=== PATIENT | female | born 1970 | race Caucasian/White ===

== ENCOUNTER 2019-10-02 09:09 | Outpatient (CLI) | payer OTHER, SELFPAY ==
[2019-10-02 09:59] LABS: HCT 39.6 % (36.0-46.0); HGB 12.9 g/dL (12.0-15.5); Mean Corp. HGB Concentration 32.6 g/dL (32.0-36.0); Mean Corpuscular Hemoglobin 28.9 pg (27.0-33.0); Mean Corpuscular Volume 88.6 fL (80-95); Mean Platelet Volume 10.3 fL (8.0-11.0); Platelet Count 274 x1000/uL (130-400); RBC 4.47 m/cumm (4.00-5.20); RBC Distribution Width 13.5 % (11.7-14.6); White Blood Cell Count 5.07 k/cumm (4.4-10.8)
[2019-10-02 10:28] LABS: Hemoglobin A1C 5.8 % (3.8-5.6)
[2019-10-02 11:13] LABS: ALT 18 U/L (14-59); AST 17 U/L (15-37); Albumin 3.6 g/dL (3.4-5.0); Alkaline Phosphatase 112 U/L (46-116); Anion Gap 9.7 mmol/L (3-11); BUN 12 mg/dL (7-18); Bilirubin, Total 0.2 mg/dL (0.2-1.0); CO2 27.3 mmol/L (21.0-32.0); CREATININE 0.86 mg/dL (0.55-1.02); Calcium 8.9 mg/dL (8.5-10.1); Calculated LDL 170 mg/dL (<100); Chloride 102 mmol/L (98-107); Cholesterol 252 mg/dL (<200); Glucose 117 mg/dL (74-106); HDL Cholesterol 56 mg/dL (40-60); Potassium 3.9 mmol/L (3.5-5.1); Sodium 139 mmol/L (136-145); Total Protein 6.8 g/dL (6.4-8.2); Triglyceride 132 mg/dL (<150)
== END 2019-10-02 09:29 ==
PROVIDERS: PCP Nurse Practitioner; Visit Provider Nurse Practitioner
DX: E78.00 Pure hypercholesterolemia, unspecified (principal); E11.9 Type 2 diabetes mellitus without complications; R73.09 Other abnormal glucose
CPT/HCPCS: 36415; 80053; 80061; 85027; 83036

== ENCOUNTER 2019-11-13 01:08 | Outpatient (CLI) | payer OTHER, SELFPAY ==
--- NOTE | 2019-11-13 15:00 | DI.MRI_ITS ---
EXAM: MR LUMBAR SPINE WO CLINICAL HISTORY: PRE IR TREATMENT AT [facility], SPINAL STENOSIS AT L4-5 LEVEL, BACK PAIN. TECHNIQUE: Multiplanar multisequence MRI of the Lumbar spine was performed. COMPARISON: No exams were available for comparison FINDINGS: Bones: The last intervertebral disc space is designated the L5/S1 level for the numbering purpose of this examination. The vertebral body heights are well maintained. Alignment is satisfactory. Note i s made of a hemangioma in the S1 vertebral body. Mild degenerative endplate signal changes are seen at L3-4, L4-5 and L5-S1. Cord: The conus tip ends at the L1 level. It is of normal size and signal intensity. T12-L1: No disc herniations or bulges are present. No significant central spinal canal or neural for aminal stenosis is present. L1-2: No disc herniations or bulges are present. No significant central spinal canal or neural fora janae stenosis is present. L2-3: No disc herniations or bulges are present. No significant central spinal canal or neural forami nal stenosis is present. L3-4: There is a mild diffuse disc bulge. There are degenerative changes of the facets. There is m ild narrowing of the central spinal canal. There is mild narrowing of the right neural foramen. The re is no significant left neural foraminal stenosis. L4-5: There is a diffuse disc bulge. There are hypertrophic changes of the facets and ligamentum fl avum. The findings cause moderate central spinal canal stenosis. There is mild bilateral neural for aminal stenosis. L5-S1: There is an asymmetric diffuse disc bulge extending laterally to the left. There are degener ative changes of the facets. No significant central spinal canal stenosis is seen. There is moderat e left neural foraminal stenosis. Minimal narrowing is seen of the right neural foramen. Soft tissues: The visualized SI joints and sacrum are well maintained. The paraspinal soft tissues ar e unremarkable. IMPRESSION: 1. Multilevel degenerative changes in the lumbar spine. 2. Degenerative changes most marked at the L4-5 level where there is moderate central spinal canal st enosis and bilateral neural foraminal stenosis. 3. Degenerative changes seen at L5-S1 causing moderate left neural foraminal stenosis. DATA REPOSITORY:
== END 2019-11-13 01:28 ==
PROVIDERS: PCP Nurse Practitioner; Visit Provider Nurse Practitioner
DX: M48.061 Spinal stenosis, lumbar region without neurogenic claudication (principal); M54.5 Low back pain; M51.27 Other intervertebral disc displacement, lumbosacral region; M47.817 Spondylosis without myelopathy or radiculopathy, lumbosacral region
CPT/HCPCS: 72148

== ENCOUNTER 2020-02-10 08:39 | Outpatient (CLI) | payer OTHER, SELFPAY ==
[2020-02-10 08:50] VITALS: BP 113/72; PULSE 83; RESP 16; TEMP 36.6; O2SAT 98
--- NOTE | 2020-02-10 08:52 | PDOC.PAIN ---
Pain Clinic Procedure Note Procedure Note Procedure Note: INTRA-ARTICULAR SI JOINT INJECTION SARAI HAILE has been referred to the [facility] Management [facility] for intra-articular SI joint injection. 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 She was [place] [facility] [place] by Dr Hopper/Dr Laboy on 01/20/2020. Patient has back pain and right buttock pain. She has had prior injections done in [place], bilateral SI joint injection with some pain relief (2018). Prior LESI which minimal pain relief, followed by lumbar radiofrequency ablation therapy (2019). More recently, she has been experiencing debilitating back pain, right sided, that is interfering with her ability to stand or sit for prolonged period of time. During the clinic visit on 01/20/2020 at [facility] [place], provocative manuever for SI joint was positive and patient may have combination of multiple pain generators from nociceptive sacroiliac joint mediated as well as facetogenic. MRI L spine showed degenerative changes at L4-5 with central canal stenosis and bilateral foraminal stenosis and L5-S1 causing moderate left foraminal stenosis. The decision was made for patient to undergo a trial of SI joint injection. She is scheduled to follow up with [facility] [place]health 2 weeks post injection to monitor residual pain and based on that assessment, plan for future interventional procedures. Patient was interviewed and the medical record reviewed. There were no medical, pharmacologic, radiographic or other structural contraindications to attempting fluoroscopically guided intra-articular SI joint injection. Risks and expected side effects as well as potential benefit of the procedure were reviewed and voiced concerns addressed. The printed consent form was signed and witnessed. Standard time-out procedure was performed. Patient was placed in the prone position on the fluoroscopy table and automated blood pressure cuff and pulse oximeter applied. The skin entry point for approaching right SI joints was identified under the most advantageous fluoroscopic view and marked. Following thorough Chlorhexadine preparation of the skin and draping and 1% lidocaine infiltration of the skin entry point and subcutaneous tissues, a 22 gauge spinal needle was placed under fluoroscopic guidance into right SI joints was identified under the most advantageous fluoroscopic view and marked. Following thorough Chlorhexadine preparation of the skin and draping and 1% lidocaine infiltration of the skin entry point and subcutaneous tissues, a 22 gauge spinal needle was placed under fluoroscopic guidance into right SI joint. Intra-articular placement was confirmed by a clear arthrogram resulting from the injection of 0.5ml Omnipaque 240, 1ml 1% lidocaine, and 40mg Depomedrol were injected intra-articularily with an initial reproduction of a significant component of the usual pain. Vital signs were stable throughout the procedure and were as recorded in the docflowsheet by the nursing staff. Follow up plans and appointments were discussed with the patient. Post procedure instruction was given as documented in nursing documentation and having met discharge criteria, and was discharged from the Pain Management Center. COMMENTS: patient tolerated procedure well. I personally performed this procedure Luis Felipe Jimenez MD Pain Management CC: Desire Julian APRN
--- NOTE | 2020-02-10 09:20 | DI.RAD_ITS ---
EXAM: XR PAIN CLINIC SACRIOILIAC 2V CLINICAL HISTORY: Dx: Sacroiliac Joint dysfunction-Right, SACROLIAC JOINT INJECTION TECHNIQUE: 2D and realtime digital imaging was performed. Fluoroscopy was provided in the OR COMPARISON: No exams were available for comparison FINDINGS: C-arm fluoroscopy was utilized by Dr. Jimenez during reported right SI joint injection. Hard copy shows S I joint injection. Fluoro 20 seconds. RADIATION DOSE DELIVERED: Total DLP
[2020-02-10 09:22] VITALS: BP 132/83; PULSE 88; RESP 16; O2SAT 99
[2020-02-10] MEDS: methylPREDNISolone ACETATE 80 MG/ML VIAL IJ (09:25)
[2020-02-10] MEDS: Omnipaque 240 MG/ML 50 ML BTL IJ (09:25)
== END 2020-02-10 08:59 ==
PROVIDERS: PCP Nurse Practitioner; Visit Provider Internal Medicine
DX: M53.3 Sacrococcygeal disorders, not elsewhere classified (principal)
CPT/HCPCS: 27096; 72200; J1040; Q9967

== ENCOUNTER 2020-02-17 01:35 | Outpatient (CLI) | payer OTHER, SELFPAY ==
--- NOTE | 2020-02-17 11:15 | DI.US_ITS ---
EXAM: US PELVIS TRANSVAGINAL CLINICAL HISTORY: Right ovarian cyst, N83.201. TECHNIQUE: Transabdominal and transvaginal pelvic ultrasound was performed using standard protocol. COMPARISON: No exams were available for comparison. If they become available, an addendum will be i ssued at that time. FINDINGS: KIDNEYS: Kidneys are symmetric in size. No evidence of renal calculi. No evidence of hydronephrosis. No renal mass or cyst identified. UTERUS: Position: Anteverted. Size: 6.0 long by 3.2 AP by 4.6 transverse cm Endometrium: 0.6 cm. Normal for patient's menstrual status. Myometrium: Unremarkable. Cervix: Unremarkable. OVARIES: Right: 4.7 x 2.8 x 2.8 cm Cyst or mass: 2.0 x 2.1 x 1.7 cm simple avascular cyst. There is a 2.8 x 2.7 x 2.7 cm cystic lesion with internal debris. It is avascular. Left: 4.4 x 2.9 x 3.7 cm Cyst or mass: There are 2 complex avascular lesions on the left ovary. The larger measures 2.5 x 2.4 x 3.4 cm. The smaller measures 2.2 x 1.3 x 2.4 cm. There do appear to be a few echogenic foci asso ciated with the cysts which may be calcifications. DOPPLER: Color: Symmetric and uniform flow to both ovaries. No hyperemia. Duplex: Normal ovarian arterial waveforms visualized. CUL-DE-SAC: Free fluid: None. Other: None. IMPRESSION: 1. Normal sonographic appearance of the kidneys. 2. Normal-appearing uterus with endometrial stripe within normal limits. 3. Complex bilateral ovarian lesions. The largest is on the left ovary and measures 3.4 cm in maximu m diameter. Differential considerations include but are not limited to hemorrhagic cysts or endometr iomas. DATA REPOSITORY:
== END 2020-02-17 01:55 ==
PROVIDERS: PCP Nurse Practitioner; Visit Provider Nurse Practitioner
DX: N83.291 Other ovarian cyst, right side (principal); N83.292 Other ovarian cyst, left side
CPT/HCPCS: 76830; 76856

== ENCOUNTER 2020-02-24 01:05 | Outpatient (CLI) | payer OTHER, SELFPAY ==
--- NOTE | 2020-02-24 12:30 | DI.MAMMO_ITS ---
EXAM: MG MAMMO SCREENING CLINICAL HISTORY: screening, Z12.39 TECHNIQUE: Bilateral full field digital CC and MLO mammographic images were obtained with 3D tomosyn thesis and utilizing computer aided detection (CAD). COMPARISON: None. FINDINGS: Masses/Architectural Distortion: None seen. Microcalcifications: No suspicious pleomorphic-type are seen. Skin Thickening/Nipple Retraction: None. IMPRESSION: 1. No significant interval change with no specific features of malignancy noted. 2. Unless there is more urgent need, screening mammography is recommended, as per [place] [employer] guidelines. BI-RADS Category 1 - Negative Breast Density - Category B - Scattered areas of fibroglandular density A negative radiographic report should not delay biopsy if a dominant or clinically suspicious mass is present. Up to ten percent of cancers are not identified on mammography. A negative report may reinforce clinical impression. Adenosis and dense breasts may obscure an underlying neoplasm. False positive reports average 6 to 10%. Patient will receive a letter notifying them of these results.
== END 2020-02-24 01:25 ==
PROVIDERS: PCP Nurse Practitioner; Visit Provider Nurse Practitioner
DX: Z12.31 Encounter for screening mammogram for malignant neoplasm of breast (principal)
CPT/HCPCS: 77063; 77067

== ENCOUNTER 2020-03-09 14:10 | Outpatient (REF) | payer OTHER, SELFPAY ==
--- NOTE | 2020-03-09 13:30 | PAPFT_PTH ---
PATIENT: Bianka Leonardo LOC: [facility] U#:[id number] AGE/SX: 49/F ROOM: RE03/09/[address]: Sirena Joshi NP : 1970 BED: DIS: 03/09/2020 SPEC #: [id number] RECD: 03/09/20 17:01 STATUS: CODY HAWK #: [id number] SHARI: 03/09/20 13:[address]: Sirena Joshi NP DEPT: [facility] Cytology RECD BY: Mikal Dominguez ENTERED: 03/09/20 17:03 SP TYPE: PAPFT OTHR DR: Desire Julian APRN Tissues: 1 - CX/ENDOCX FOR PAP SMEARS Procedures: PAP THIN PREP/UVM Screening Comments: [id number] (UNSATISFACTORY FOR EVALUATION)
== END 2020-03-09 14:30 ==
LOC: LBN 14:10
PROVIDERS: PCP Nurse Practitioner; Visit Provider Nurse Practitioner Women's Health
DX: Z12.4 Encounter for screening for malignant neoplasm of cervix (principal); Z87.410 Personal history of cervical dysplasia; R87.615 Unsatisfactory cytologic smear of cervix
CPT/HCPCS: 88142

== ENCOUNTER 2020-06-04 08:35 | Outpatient (CLI) | payer OTHER, SELFPAY ==
[2020-06-05 15:10] LABS: COVID-19 RT-PCR Result NEGATIVE (Negative)
== END 2020-06-04 08:55 ==
PROVIDERS: PCP Nurse Practitioner; Visit Provider Surgery
DX: Z11.59 Encounter for screening for other viral diseases (principal); Z01.818 Encounter for other preprocedural examination
CPT/HCPCS: U0003

== ENCOUNTER 2020-06-07 06:18 | Day surgery (SDC) | payer OTHER, SELFPAY ==
[2020-06-07 06:31] VITALS: BP 137/86; PULSE 80; RESP 18; TEMP 36.2; O2SAT 99
--- NOTE | 2020-06-07 06:36 | ENDO_ITS ---
Date of service: 06/07/20 Time of Service: 08:01 Endoscopy Report DATE OF PROCEDURE: 06/07/20 PRE-OP DIAGNOSIS: Colon Cancer Screening and GERD POST-OP DIAGNOSIS: other (gastric ulcers, mild esophagitis, right sided mild diverticulosis) PROCEDURE: 1. EGD with biopsies 2. Colonoscopy SURGEON: Neelam Berger ANESTHESIA: other (General/ ASA 2/Whitley Nettie, CELL BIOLOGY SCIENTIST) ESTIMATED BLOOD LOSS: 3 PATHOLOGY: other (Antrum bx, gastric ulcer bx, GE junction bx) COMPLICATIONS: None DISPOSITION: same day INDICATIONS: The patient is here for Colonoscopy pre-op.She has no family history of colon cancer. She has noted some changes in her bowel habits to include more frequent constipation. -Discussed colonoscopy bowel prep as well as the procedure. Discussed possible complications of the procedure to include bleeding, pain, perforation, missed small lesion/polyp, sore throat, aspiration and adverse reaction to the medications. Questions were answered to patient?s satisfaction. No guarantees were implied or given. She will refrain from using ibuprofen for 5 days prior to her procedure. Ordered Zofran to be used if she has any symptoms of nausea or vomiting associated with the bowel prep. P// Colonoscopy under sedation. (2) Esophageal reflux: Persistent GERD symptoms despite use of pantoprazole daily. She has eliminated alcohol and chocolate and has significantly reduced her caffeine intake. -Discussed Upper endoscopy procedure and the need to be NPO after midnight the night prior. Discussed possible complications of the procedure to include bleeding, pain, perforation, missed small lesion/polyp/ulcers, sore throat, aspiration and adverse reaction to the medications or sedation. Questions were answered to patient?s satisfaction. No guarantees were implied or given. PREP: Miralax/Dulcolax PROCEDURE START TIME: 07:20 PROCEDURE END TIME: 07:57 COLONOSCOPY RETRACTION TIME: 17 FINDINGS: EGD- Gastric ulcers, mild gastritis, mild esophagitis Edwards- mild right sided diverticulosis PROCEDURE DESCRIPTION: After informed consent was obtained the patient was take to the procedure room and placed in a supine position. Monitors were applied and a time out was done. The patients name, date of , procedure type, allergies to medications and metal in their body was reviewed. A bite block was placed and the patient was sedated. Once sedated and comfortable the gastroscope was advanced through the oropharynx which was grossly normal into the esophagus. The proximal and mid- esophagus were normal. In the distal esophagus there was mild inflammation noted. The scope was advanced into the stomach and through the pylorus into the 3rd portion of the duodenum. The duodenum was noted to be normal. The scope was retracted back into the stomach and biopsies were done to rule out H. pylori. There were multiple shallow ulcers around the pylorus and in the antrum. The scope was retro-flexed. The cardia and fundus were noted to be normal. There was no hiatal hernia noted. The scope was retracted back into the esophagus and biopsies were done of the GE junction to rule out Cosme's. The Z line was regular. The GE junction was at 35 cm. While the patient was still sedated they were placed in a left decubitous position. A rectal exam was done. External exam was normal. Internal exam revealed a relaxed sphincter tone and no palpable masses. The scope was then introduced and retro-flexed. No internal hemorrhoids were identified. The scope was then advanced to the cecum without difficulty. The ileocecal valve and appendiceal orifice were identified. The prep was good. The scope was then slowly retracted over 17 minutes back into the rectum. There were no polyps. Mild right sided diverticulosis was noted. The scope was removed and the patient was woken up and taken back to Same day surgery in stable condition. The patient tolerated the procedure well and there were no immediate complications. Follow up: 10 years for her next colonoscopy Increase pantoprazole to 40 mg BID for 30 days
--- NOTE | 2020-06-07 06:38 | W.PM.DSUDISC ---
Discharge Plan Disposition Patient Disposition: HOME Condition: Good Discharge Details Reason For Visit: Colonoscopy and EGD Attending Provider: Neelam Berger Primary Care Provider: Desire Julian Home Meds and New Rx's Prescriptions: New pantoprazole 40 mg tablet,delayed release (DR/EC) 40 mg PO BID Qty: 60 RF: 0 celecoxib [Celebrex] 200 mg capsule 200 mg PO DAILY Qty: 30 RF: 0 Continued magnesium oxide 500 mg capsule 500 mg PO DAILY RF: 0 mwxhm-8i-oqo-epa-fish oil 300-1,000 mg capsule 4 cap PO DAILY RF: 0 niacin 1,000 mg tablet extended release 1,000 mg PO BID RF: 0 diclofenac sodium [Voltaren] 1 % gel 2 gm TP QID RF: 0 metronidazole [Metrogel Vaginal] 0.75 % gel 1 appful VG DAILY PRNRF: 0 fluconazole [Diflucan] 100 mg tablet 100 mg PO DAILY PRNRF: 0 cyclobenzaprine 10 mg tablet 10 mg PO TID PRN (Reason: back pain) Qty: 90 RF: 3 zolpidem [Ambien CR] 12.5 mg tablet,ext release multiphase 12.5 mg PO QHS PRN (Reason: insomnia) Qty: 90 RF: 3 yrtlaksona-kzutpiohzpqcd-eoxf [Fioricet] 50-300-40 mg capsule 2 cap PO Q4H PRN (Reason: headache) Qty: 30 RF: 6 ondansetron 4 mg tablet,disintegrating 4 mg PO Q8H PRN (Reason: nausea and vomiting) Qty: 10 RF: 0 fexofenadine 180 mg tablet 180 mg PO DAILY RF: 0 fluticasone propionate [Flonase Allergy Relief] 50 mcg/actuation spray,suspension See Rx Instructions AMELIA DAILY RF: 0 venlafaxine [Effexor XR] 150 mg capsule,extended release 24hr 150 mg PO DAILY RF: 0 propranolol 40 mg tablet 20 mg PO BID Qty: 90 RF: 3 sucralfate [Carafate] 1 gram tablet See Rx Instructions PO BID PRN (Reason: GI/gastritis) Qty: 120 RF: 1 Discontinued pantoprazole 40 mg tablet,delayed release (DR/EC) 40 mg PO DAILY Qty: 90 RF: 1 Discharge Instructions Additional Instructions: Findings: Gastric ulcers. mild esophagitis mild right sided diverticulosis Follow up: 10 years for next colo Medications: increase Pantoprazole 40 mg to BID Please call if you develop: fevers >101.5 Nausea or Vomiting Abdominal pain that is not transient DAY SURGERY UNIT POST ENDOSCOPY INSTRUCTIONS 1. Because there will be medication in your system for the next 24 hours, you may feel a little sleepy. Your coordination will be affected. Therefore: a. Do not drive or operate dangerous equipment for 24 hours. b. Do not drink alcohol beverages for 24 hours (not even beer). c. Plan to go home and rest for the day. 2. Generally there are no restrictions on your activity after a day or so has gone by, but you may feel a bit fatigued for a few days. 3 After you arrive home you may have a light meal and return to a normal diet as you can tolerate it without feeling sick to your stomach. 4. After surgery, you may feel pain or discomfort. This should be only transient, but if it persists please contact your doctor. 5. If there are any questions regarding the findings of your procedure, please feel free to contact your doctor. 6. If you are unable to contact your doctor with a problem, contact the hospital at [phone]. 7. Continue all your regular medications unless directed otherwise. I understand the above instructions and have no questions. Signature of Patient or Responsible Adult Escort Date/Time Name of Responsible Adult Escort Signature of Nurse Date/Time Activity:: Activity as Tolerated Diet:: As Tolerated Discharge Orders Discharge Orders: Discharge Order (Routine); Ordered 06/07/20 Ordered By: Neelam Berger
[2020-06-07] MEDS: Lactated Ringers 1,000 ML 80 ML IV (06:48)
--- NOTE | 2020-06-07 07:24 | STOM_PTH ---
PATIENT: Bianka Leonardo LOC: [facility] U#:[id number] AGE/SX: 50/F ROOM: RE06/07/[address]: Neelam Berger MD : 1970 BED: DIS: 06/07/2020 SPEC #: [id number] RECD: 06/07/20 12:37 STATUS: CODY REQ #: [id number] SHARI: 06/07/20 07:[address]: Neelam Berger DEPT: Surgical Specimen RECD BY: Echo Gordon ENTERED: 06/07/20 12:39 SP TYPE: STOMACH OTHR DR: Desire Julian APRN Tissues: 1 - STOMACH BIOPSY 2 - STOMACH BIOPSY 3 - ESOPHAGUS BIOPSY Procedures: GROSS AND MICRO LEVEL 4 IMMUNOPEROXIDASE STAIN Comments: [id number]
[2020-06-07 08:35] VITALS: BP 118/82; PULSE 74; RESP 16; TEMP 36; O2SAT 100
== END 2020-06-07 08:50 | disposition home or self-care (01) ==
PROVIDERS: PCP Nurse Practitioner; Visit Provider Surgery
PROC: (CPT 43239; principal; 2020-06-07 07:30)
DX: Z12.11 Encounter for screening for malignant neoplasm of colon (principal); K21.9 Gastro-esophageal reflux disease without esophagitis; K57.30 Diverticulosis of large intestine without perforation or abscess without bleeding; K20.90 Esophagitis, unspecified without bleeding; K25.9 Gastric ulcer, unspecified as acute or chronic, without hemorrhage or perforation; K29.70 Gastritis, unspecified, without bleeding
CPT/HCPCS: 43239; 45378; 81025; 88305; 88361; J2001; J2405

== ENCOUNTER 2020-06-22 08:00 | Outpatient (CLI) | payer OTHER, SELFPAY ==
--- NOTE | 2020-06-22 06:00 | DI.RAD_ITS ---
EXAM: XR PAIN CLINIC SACRIOILIAC 2V CLINICAL HISTORY: Dx: Sacroiliac Joint Dysfunction TECHNIQUE: 2D and realtime digital imaging was performed. CONTRAST MATERIAL: Refer to procedure report. COMPARISON: No exams were available for comparison FINDINGS: Fluoroscopy was provided for Dr. Jimenez during the performance of a right sacroiliac joint injection. P lease refer to the procedure report for complete details. Fluoro time: 27.2 seconds IMPRESSION:
[2020-06-22 08:08] VITALS: BP 106/66; PULSE 78; RESP 16; TEMP 37; O2SAT 99
[2020-06-22 08:34] VITALS: BP 123/61; PULSE 84; RESP 16; O2SAT 100
[2020-06-22] MEDS: Omnipaque 240 MG/ML 50 ML BTL IJ (08:41)
[2020-06-22] MEDS: methylPREDNISolone ACETATE 80 MG/ML VIAL IJ (08:41)
--- NOTE | 2020-06-22 11:26 | PDOC.PAIN ---
Pain Clinic Procedure Note Procedure Note Procedure Note: INTRA-ARTICULAR SI JOINT INJECTION Pre-operative diagnosis: sacroiliac joint dysfunction Post-operative diagnosis: same as above SARAI HAILE has been referred to the Pain Management Center for intra-articular SI joint injection. COMMENTS: previous right SI joint injection provided excellent pain relief from January to May 2020. Patient followed up with Dr Hopper and she is okay to follow at [facility] pain clinic for repeat injections as long as it provides significant pain relief and no new pattern of pain. Patient was interviewed and the medical record reviewed. There were no medical, pharmacologic, radiographic or other structural contraindications to attempting fluoroscopically guided intra-articular SI joint injection. Risks and expected side effects as well as potential benefit of the procedure were reviewed and voiced concerns addressed. The printed consent form was signed and witnessed. Standard time-out procedure was performed. Patient was placed in the prone position on the fluoroscopy table and automated blood pressure cuff and pulse oximeter applied. The skin entry point for approaching right SI joints was identified under the most advantageous fluoroscopic view and marked. Following thorough Chlorhexadine preparation of the skin and draping and 1% lidocaine infiltration of the skin entry point and subcutaneous tissues, a 22 gauge spinal needle was placed under fluoroscopic guidance into right SI joints was identified under the most advantageous fluoroscopic view and marked. Following thorough Chlorhexadine preparation of the skin and draping and 1% lidocaine infiltration of the skin entry point and subcutaneous tissues, a 22 gauge spinal needle was placed under fluoroscopic guidance into right SI joint. Intra-articular placement was confirmed by a clear arthrogram resulting from the injection of 0.5ml Omnipaque 240, 1ml 1% lidocaine, and 40mg Depomedrol were injected intra-articularily with an initial reproduction of a significant component of the usual pain. Vital signs were stable throughout the procedure and were as recorded in the docflowsheet by the nursing staff. Follow up plans and appointments were discussed with the patient. Post procedure instruction was given as documented in nursing documentation and having met discharge criteria, and was discharged from the Pain Management Center. COMMENTS: patient tolerated procedure well. I personally performed this procedure Luis Felipe Jimenez MD Pain Management CC: Desire Julian APRN
== END 2020-06-22 08:20 ==
PROVIDERS: PCP Nurse Practitioner; Visit Provider Internal Medicine
DX: M53.3 Sacrococcygeal disorders, not elsewhere classified (principal)
CPT/HCPCS: 27096; 72200; J1040; Q9967

== ENCOUNTER 2020-10-05 11:11 | Outpatient (CLI) | payer OTHER, SELFPAY ==
[2020-10-05 11:16] VITALS: BP 126/76; PULSE 73; RESP 17; TEMP 36.6; O2SAT 99
--- NOTE | 2020-10-05 11:41 | DI.RAD_ITS ---
EXAM: XR PAIN CLINIC SACRIOILIAC 2V CLINICAL HISTORY: Dx: Sacroiliac Joint Dysfunction TECHNIQUE: 2D and realtime digital imaging was performed. COMPARISON: No exams were available for comparison FINDINGS: C-arm fluoroscopy was utilized by Dr. Levy during reported right SI joint injection. Hard copy shows successful injection at the right SI joint. Fluoro time, 21.7 seconds. IMPRESSION: RADIATION DOSE DELIVERED: Total DLP
[2020-10-05] MEDS: methylPREDNISolone ACETATE 80 MG/ML VIAL IJ (11:47)
[2020-10-05] MEDS: Omnipaque 240 MG/ML 50 ML BTL IJ (11:47)
[2020-10-05 11:54] VITALS: BP 133/75; PULSE 88; RESP 16; O2SAT 100
--- NOTE | 2020-10-05 12:34 | PDOC.PAIN_ITS ---
Pain Clinic Procedure Note Procedure Note Procedure Note: Date of service: 10/05/20 INTRA-ARTICULAR SI JOINT INJECTION SARAI HAILE has been referred to the [facility] for intra- articular SI joint injection. COMMENTS: She has had many right sacroiliac joint injections over the years. Her last 2 were on 02/10/20 and 06/22/[address] Jimenez. She gets about 3 months of relief from this procedure. I did discuss radiofrequency ablation to the right sacroiliac joint by ablating the right L4 and L5DR medial branches and the right S1-S3 lateral branches to give her far longer lasting relief and help her to avoid the repeted steroids. She was interested in this idea for the future. DX: Sacroiliac joint dysfunction Patient was interviewed and the medical record reviewed. There were no medical, pharmacologic, radiographic or other structural contraindications to attempting fluoroscopically guided intra-articular SI joint injection. Risks and expected side effects as well as potential benefit of the procedure were reviewed and voiced concerns addressed. The printed consent form was signed and witnessed. Standard time-out procedure was performed. Patient was placed in the prone position on the fluoroscopy table and automated blood pressure cuff and pulse oximeter applied. The skin entry point for approaching [right/left/bilateral] SI joints was identified under the most advantageous fluoroscopic view and marked. Following thorough Chlorhexadine preparation of the skin and draping and 1% lidocaine infiltration of the skin entry point and subcutaneous tissues, a 22 gauge spinal needle was placed under fluoroscopic guidance into right SI joint was identified under the most advantageous fluoroscopic view and marked. Intra-articular placement was confirmed by a clear arthrogram resulting from the injection of 0.25ml Omnipaque 240, 1ml 1% lidocaine, and 40mg Depomedrol were injected intra-articularily with an initial reproduction of a significant component of the usual pain. Vital signs were stable throughout the procedure and were as recorded in the docflowsheet by the nursing staff. If given, dosages of intravenous drugs for anxiolysis and analgesia were documented in MAR. Follow up plans and appointments were discussed with the patient. Post procedure instruction was given as documented in nursing documentation and having met discharge criteria, and was discharged from the [facility]. COMMENTS: Consider radiofrequency ablation to the right Sacroiliac joint vs continued right sacroiliac joint injections every 3-4 months. Carlo Levy DO, MPH Pain Management CC: Desire Julian APRN
== END 2020-10-05 11:12 | disposition home or self-care (01) ==
LOC: PC 11:11
PROVIDERS: PCP Nurse Practitioner; Visit Provider Preventive Medicine Occupational Medicine
DX: M53.3 Sacrococcygeal disorders, not elsewhere classified (principal)
CPT/HCPCS: 27096; 72200; J1040; Q9967

== ENCOUNTER 2020-12-01 13:12 | Outpatient (REF) | payer OTHER, SELFPAY ==
--- NOTE | 2020-12-01 13:00 | PAPFT_PTH ---
PATIENT: Bianka Leonardo LOC: [facility] U#:[id number] AGE/SX: 50/F ROOM: RE12/01/[address]: Sirena Joshi NP : 1970 BED: DIS: 12/01/2020 SPEC #: [id number] RECD: 12/01/20 17:42 STATUS: CODY REEzequiel #: [id number] SHARI: 12/01/20 13:[address]: Sirena Joshi NP DEPT: [facility] Cytology RECD BY: Echo Gordon ENTERED: 12/01/20 17:43 SP TYPE: PAPFT OTHR DR: Desire Julian APRN Tissues: 1 - CX/ENDOCX FOR PAP SMEARS Procedures: PAP THIN PREP/UVM Screening HPV DNA PROBE Comments: [id number]
== END 2020-12-01 13:13 | disposition home or self-care (01) ==
LOC: LBN 13:12
PROVIDERS: PCP Nurse Practitioner; Visit Provider Nurse Practitioner Women's Health
DX: Z12.4 Encounter for screening for malignant neoplasm of cervix (principal); Z11.51 Encounter for screening for human papillomavirus (HPV)
CPT/HCPCS: 88142; 87624

== ENCOUNTER 2020-12-30 02:11 | Outpatient (CLI) | payer OTHER, SELFPAY ==
[2020-12-30 10:47] LABS: HCT 38.6 % (36.0-46.0); HGB 12.8 g/dL (11.2-15.7); MCHC 33.2 % (32.0-36.0); MCV 90.6 fL (80-95); MPV 10.6 fL (8.0-11.0); Platelet Count 233 10^3/uL (130-400); RBC 4.26 10^6/uL (3.93-5.22); RDW 12.5 % (11.7-14.6); RDW-SD 41.7 fL; WBC 3.77 10^3/uL (4.4-10.8)
[2020-12-30 12:07] LABS: ALT 24 U/L (14-59); AST 16 U/L (15-37); Albumin 3.8 g/dL (3.4-5.0); Alkaline Phosphatase 109 U/L (46-116); Anion Gap 6.8 mmol/L (3-11); BUN 16 mg/dL (7-18); Bilirubin, Total 0.2 mg/dL (0.2-1.0); CO2 30.2 mmol/L (21.0-32.0); CREATININE 0.9 mg/dL (0.55-1.02); Calculated LDL 123 mg/dL (<100); Chloride 103 mmol/L (98-107); Cholesterol 205 mg/dL (<200); Glucose 103 mg/dL (74-106); HDL Cholesterol 57 mg/dL (40-60); Potassium 4.4 mmol/L (3.5-5.1); Sodium 140 mmol/L (136-145); Total Protein 6.7 g/dL (6.4-8.2); Triglyceride 125 mg/dL (<150)
[2020-12-30 12:08] LABS: Hemoglobin A1C 5.6 % (<5.7)
== END 2020-12-30 02:12 | disposition home or self-care (01) ==
LOC: LBO 02:12
PROVIDERS: PCP Nurse Practitioner; Visit Provider Nurse Practitioner
DX: E78.5 Hyperlipidemia, unspecified (principal); R73.09 Other abnormal glucose
CPT/HCPCS: 36415; 80053; 80061; 85027; 83036

== ENCOUNTER 2021-02-03 10:03 | Outpatient (CLI) | payer OTHER, SELFPAY ==
--- NOTE | 2021-02-03 06:00 | DI.RAD_ITS ---
Exam(s) XR PAIN CLINIC SACRIOILIAC 2V EXAM: XR PAIN CLINIC SACRIOILIAC 2V CLINICAL HISTORY: Dx: Saroiliac Joint Dysfunction TECHNIQUE: 2D and realtime digital imaging was performed. Radiologist not present. CONTRAST MATERIAL: None. COMPARISON: No exams were available for comparison FINDINGS: Fluoroscopy was provided for pain management therapy performed by jase. Please refer to the procedur e report for complete details. Submitted image(s) reveal placement of radiofrequency ablation needles on right side at the level of the sacrum and lower lumbar spine.. Please refer to procedure report or details. Cumulative dose: Kar=20.3 mGy IMPRESSION: RADIATION DOSE DELIVERED:
[2021-02-03 09:53] VITALS: BP 125/70; PULSE 69; RESP 18; TEMP 36.5; O2SAT 98
[2021-02-03] MEDS: methylPREDNISolone ACETATE 80 MG/ML VIAL IJ (12:06)
[2021-02-03] MEDS: Lidocaine 2% Pres-Free 5 ML VIAL IJ (12:06)
[2021-02-03] MEDS: Bupivacaine 0.5% Pres-Free 10 ML VIAL IJ (12:06)
[2021-02-03 12:09] VITALS: BP 122/85; PULSE 88; RESP 19; O2SAT 98
--- NOTE | 2021-02-03 12:51 | PDOC.PAIN ---
Pain Clinic Procedure Note Procedure Note Procedure Note: Right Lumbar Radiofrequency with Coolief Machine PROCEDURE NOTE Date of Service: February 03, 2021 Patient: Bianka Leonardo Provider: Carlo Levy DO, MPH Pre Operative Diagnosis: Lumbosacral spondylosis Post Operative Diagnosis: Same PROCEDURE: Radiofrequency Ablation of medial branches - RT L4 L5 and lateral branches S1, S2, and S3 Pre-procedure VAS pain was 6/10. Bianka Leonardo was brought into the fluoroscopy suite and positioned into the prone position on the fluoroscopy table and allowed to adjust to a position of comfort. A grounding pad was placed on the right/ thigh. The lumbar region was widely prepped with a chloraprep solution, allowed to air dry and draped in standard sterile surgical fashion. Local anesthesia was provided by a total of 5 mL of 2% delivered with a 25g needle. A 17g 100mm radiofrequency introducer needle was placed to the planned anatomic targets guided with intermittent fluoroscopy with a perpendicular approach to terminally place at the junction of the superior articular process and the transverse process of the right L4 and the base of the sacral ala on the right for the L5 medial branch nerve. I then placed needles from 12 o'clock to 6 o'clock semicircular around the lateral aspects of the S1, S2, and S3 foramen. The stylets were removed and radiofrequency probes with a 4mm active tip were then inserted. Needle tip position of the probes was verified in the AP, oblique, and lateral views. At each site, the medial branch nerve was stimulated at 2 Hz to a maximum 1-2 volts determined to finalize safe needle and electrode placement. The patient was awake and responsive during this portion of the procedure. Each target was anesthetized with 1-2 mL of 2% Lidocaine for anesthesia for lesioning and then each target was lesioned at 80 degrees Celsius for 2 minutes and 30 seconds. Tissue impedences were noted to be between 250 and 500 Ohms. Electrodes and needles were then removed and bandages placed over the needle placement sites, the patient then returned to the supine position on a stretcher and transported to the recovery room without hemodynamic, neurologic, or allergic reactions. Fluoroscopic images were printed for hard copy recording and digitally archived. Post-procedure pain level was 0/10. Follow up plans and appointments were discussed with the Bianka . Post procedure instruction was given as documented in nursing documentation and having met discharge criteria, Bianka was discharged from the [facility]. COMMENTS: No complications. F/U with our office as needed. I personally performed this entire procedure. Carlo Levy DO, MPH Pain Management Attending Physician
== END 2021-02-03 10:04 | disposition home or self-care (01) ==
LOC: PC 10:03
PROVIDERS: PCP Nurse Practitioner; Visit Provider Preventive Medicine Occupational Medicine
DX: M54.17 Radiculopathy, lumbosacral region (principal)
CPT/HCPCS: 64635; 64636; 72200; J1040

== ENCOUNTER 2021-07-07 07:22 | Outpatient (CLI) | payer OTHER, SELFPAY ==
--- NOTE | 2021-07-07 06:00 | DI.RAD_ITS ---
Exam(s) XR PAIN CLINIC SACRIOILIAC 2V EXAM: XR PAIN CLINIC SACRIOILIAC 2V CLINICAL HISTORY: DX: sacroiliac joint dysfunction TECHNIQUE: 2D and realtime digital imaging was performed. Radiologist not present. CONTRAST MATERIAL: None. COMPARISON: No exams were available for comparison FINDINGS: Fluoroscopy was provided for pain management therapy. Please refer to procedure report or details. Cumulative dose: Ka,r=18.8 mGy IMPRESSION: RADIATION DOSE DELIVERED:
[2021-07-07 07:53] VITALS: BP 126/74; PULSE 84; RESP 18; TEMP 36.7; O2SAT 97
--- NOTE | 2021-07-07 09:40 | PDOC.PAIN_ITS ---
Pain Clinic Procedure Note Procedure Note Procedure Note: Left sacrolateral Radiofrequency with Coolief Machine PROCEDURE NOTE Date of Service: July 07, 2021 Patient: Bianka Leonardo Provider: Carlo Levy DO, MPH Pre Operative Diagnosis: Lumbosacral Spondylosis without Myelopathy Pre-procedure pain VAS = 6/10 Post Operative Diagnosis: Same Post procedure pain; VAS= 0/10 PROCEDURE: Radiofrequency Ablation of medial branches - Bilateral L5 and lateral branches of bilateral S1-S3. Bianka Leonardo was brought into the fluoroscopy suite and positioned into the prone position on the fluoroscopy table and allowed to adjust to a position of comfort. A grounding pad was placed on the [right/left] thigh. The lumbar region was widely prepped with a chloraprep solution, allowed to air dry and draped in standard sterile surgical fashion. Local anesthesia was provided by 5 mL of 2% Lidocaine delivered with a 25g needle. A 17g 100 mm radiofrequency introducer needle was placed to the planned anatomic targets guided with intermittent fluoroscopy with a perpendicular approach to terminally place at the left L5DR at the base of the sacral ala on the left. I then cirlcled the left S1-S3 neuroformen by marching the needles around the neuroforamen. The stylets were removed and radiofrequency probes with a 4mm active tip were then inserted. Needle tip position of the probes was verified in the AP, oblique, and lateral views. At each site, the medial branch nerve was stimulated at 2 Hz to a maximum 1-2 volts determined to finalize safe needle and electrode placement. The patient was awake and responsive during this portion of the procedure. Each target was anesthetized with 1-2 mL of 2% Li docaine for anesthesia for lesioning and then each target was lesioned at 80 degrees Celsius for 2 minutes and 30 seconds. Tissue impedences were noted to be between 250 and 500 Ohms. Electrodes and needles were then removed and bandages placed over the needle placement sites, the patient then returned to the supine position on a stretcher and transported to the recovery room without hemodynamic, neurologic, or allergic reactions. Fluoroscopic images were printed for hard copy recording and digitally archived. POST PROCEDURE EVALUATION: Follow up plans and appointments were discussed with the Bianka . Post procedure instruction was given as documented in nursing documentation and having met discharge criteria, Bianka was discharged from the [facility]. COMMENTS: No apparent complications. Post-procedure pain: VAS= 0/10. F/U with our office as needed. I personally performed this entire procedure. Carlo Levy DO, MPH Attending Physician Pain Management
[2021-07-07 09:41] VITALS: BP 116/62; PULSE 79; RESP 15; O2SAT 96
[2021-07-07] MEDS: Bupivacaine 0.5% Pres-Free 10 ML VIAL IJ (09:43)
[2021-07-07] MEDS: methylPREDNISolone ACETATE 40 MG/ML VIAL IJ (09:44)
[2021-07-07] MEDS: Lidocaine 2% Pres-Free 5 ML VIAL IJ (09:44)
[2021-07-07] MEDS: methylPREDNISolone ACETATE 80 MG/ML VIAL IJ (09:44)
== END 2021-07-07 07:23 | disposition home or self-care (01) ==
LOC: PC 07:22
PROVIDERS: PCP Nurse Practitioner; Visit Provider Preventive Medicine Occupational Medicine
DX: M47.817 Spondylosis without myelopathy or radiculopathy, lumbosacral region (principal)
CPT/HCPCS: 64635; 64636; 72200; J1030; J1040

== ENCOUNTER 2021-09-09 13:18 | Outpatient (REF) | payer OTHER, SELFPAY ==
[2021-09-10 01:52] LABS: COVID-19 RT-PCR UVMMC Result Negative (Negative)
== END 2021-09-09 13:19 | disposition home or self-care (01) ==
LOC: LBN 13:18
PROVIDERS: PCP Nurse Practitioner; Visit Provider Surgery
DX: R51.9 Headache, unspecified (principal); Z20.822 Contact with and (suspected) exposure to COVID-19
CPT/HCPCS: U0003

== ENCOUNTER 2021-09-14 00:58 | Outpatient (CLI) | payer OTHER, SELFPAY ==
--- NOTE | 2021-09-14 12:30 | DI.MAMMO_ITS ---
Exam(s) MAMMO SCREENING EXAM: MAMMO SCREENING CLINICAL HISTORY: screening. TECHNIQUE: Bilateral full field digital CC and MLO mammographic images were obtained with 3D tomosyn thesis and utilizing computer aided detection (CAD). COMPARISON: Prior mammograms were reviewed, the most recent being February 2020. FINDINGS: There are no new spiculated masses nor malignant appearing microcalcification groups. There is no significant architectural distortion nor skin thickening-retraction. IMPRESSION: No radiographic evidence of malignancy. BI-RADS Category 1 - Negative Breast Density - Category B - Scattered areas of fibroglandular density Breast density Category C or D implies that the patient has dense breast tissue. Dense breast tissue can make it harder to find cancer on a mammogram. Dense breast tissue is also associated with an incr eased risk of breast cancer. This information about the result of the mammogram report was provided to the patient to raise their awareness. Use this report when you speak with the patient about their risks for breast cancer, which includes their family history. At that time, you may recommend additional screening tests (Ultrasoun d or MRI) as these tests may add significant information. A negative radiographic report should not delay biopsy if a dominant or clinically suspicious mass is present. Up to ten percent of cancers are not identified on mammography. A negative report may reinforce clinical impression. Adenosis and dense breasts may obscure an underlying neoplasm. False positive reports average 6 to 10%. Patient will receive a letter notifying them of these results.
== END 2021-09-14 01:18 ==
PROVIDERS: PCP Nurse Practitioner; Visit Provider Nurse Practitioner Women's Health
DX: Z12.31 Encounter for screening mammogram for malignant neoplasm of breast (principal)
CPT/HCPCS: 77063; 77067

== ENCOUNTER 2022-02-24 02:06 | Outpatient (CLI) | payer OTHER, SELFPAY ==
[2022-02-24 07:34] LABS: HCT 42.4 % (36.0-46.0); HGB 14.1 g/dL (11.2-15.7); MCH 30.4 pg (27.0-33.0); MCHC 33.3 % (32.0-36.0); MCV 91 fL (80-95); MPV 10.6 fL (8.0-11.0); Platelet Count 235 10^3/uL (130-400); RBC 4.64 10^6/uL (3.93-5.22); RDW 12.5 % (11.7-14.6); RDW-SD 42.1 fL; WBC 3.93 10^3/uL (4.4-10.8)
[2022-02-24 07:59] LABS: Hemoglobin A1C 5.6 % (<5.7)
[2022-02-24 08:57] LABS: ALT 23 U/L (14-59); AST 21 U/L (15-37); Albumin 3.9 g/dL (3.4-5.0); Alkaline Phosphatase 106 U/L (46-116); BUN 20 mg/dL (7-18); Bilirubin, Total 0.3 mg/dL (0.2-1.0); CREATININE 0.8 mg/dL (0.55-1.02); Calcium 8.9 mg/dL (8.5-10.1); Calculated LDL 133 mg/dL (<100); Chloride 101 mmol/L (98-107); Cholesterol 220 mg/dL (<200); Glucose 87 mg/dL (74-106); HDL Cholesterol 59 mg/dL (40-60); Sodium 137 mmol/L (136-145); Total Protein 7.1 g/dL (6.4-8.2); Triglyceride 144 mg/dL (<150)
== END 2022-02-24 02:07 | disposition home or self-care (01) ==
LOC: LBO 02:06
PROVIDERS: PCP Nurse Practitioner; Visit Provider Nurse Practitioner
DX: E78.5 Hyperlipidemia, unspecified (principal); R73.09 Other abnormal glucose
CPT/HCPCS: 36415; 80053; 80061; 85027; 83036

== ENCOUNTER 2022-06-17 16:57 | Emergency (ER) | payer OTHER, SELFPAY ==
--- NOTE | 2022-06-17 17:00 | DI.RAD_ITS ---
Exam(s) XR HUMERUS RT XR SHOULDER RT COMPLETE 2+V EXAM: XR SHOULDER RT COMPLETE 2+V and XR humerus RT CLINICAL HISTORY: fall shoulder pain. TECHNIQUE: 2D digital imaging was performed of the right shoulder. Six images were obtained. AP, G rashey, Y-view and axillary views were obtained. COMPARISON: CR,XR XR HUMERUS RT from 06/17/2022 FINDINGS: BONES: No acute fracture is present. No bony destructive lesion is seen. JOINTS: No dislocation present. Mild degenerative changes are seen at the right AC joint. SOFT TISSUE: Normal. IMPRESSION: No acute fracture or dislocation. DATA REPOSITORY: RADIATION DOSE DELIVERED:
[2022-06-17 17:08] VITALS: BP 150/129; PULSE 73; RESP 18; TEMP 37.1; O2SAT 96
[2022-06-17] MEDS: LORazepam 2 MG/ML VIAL 0.5 MG IVP ×2 (17:31→19:30)
[2022-06-17] MEDS: ACETAMINOPHEN 1,000 MG/100 ML BTL 400 MG IVPB (17:35)
--- NOTE | 2022-06-17 17:40 | ED.GENADUL_ITS ---
Discharge Plan Disposition Patient Disposition: HOME Condition: Stable Discharge Details Clinical Impression: Injury of shoulder, right Primary Care Provider: Desire Julian ED Provider: Freddy Balderas Home Meds and New Rx's Prescriptions: New lorazepam 0.5 mg tablet 0.5 mg PO BID PRNQty: 7 0RF Rx Instructions: prn severe muscle spasm lidocaine HCl 4 % adhesive patch,medicated 1 patch topical Q12H PRN (Reason: pain) Qty: 10 0RF No Action magnesium oxide 500 mg capsule 500 mg PO DAILY wmebn-2u-msb-epa-fish oil 300-1,000 mg capsule 4 cap PO DAILY diclofenac sodium [Voltaren] 1 % gel 2 gm TP QID metronidazole [Metrogel Vaginal] 0.75 % gel 1 appful VG DAILY PRN fluconazole [Diflucan] 100 mg tablet 100 mg PO DAILY PRN red yeast rice 600 mg capsule 600 mg PO BID Rx Instructions: give with meal/snack progesterone micronized [Prometrium] 100 mg capsule 100 mg PO DAILY Qty: 90 4RF sucralfate [Carafate] 1 gram tablet See Rx Instructions PO BID PRN (Reason: GI/gastritis) Qty: 120 1RF Rx Instructions: 1gram (1 tab) PO twice a day PRN; fexofenadine 180 mg tablet 180 mg PO DAILY fluticasone propionate [Flonase Allergy Relief] 50 mcg/actuation spray,suspension See Rx Instructions AMELIA DAILY Rx Instructions: 1-2 sprays intranasal daily; ondansetron 4 mg tablet,disintegrating 4 mg PO DAILY Qty: 14 0RF jxrwgrqanm-oniuxgalylqwm-mliq 50-300-40 mg capsule 2 cap PO Q4H Qty: 30 0RF estradiol 1 mg tablet 1 mg PO DAILY Qty: 90 1RF cyclobenzaprine 10 mg tablet 10 mg PO TID PRN (Reason: back pain) Qty: 90 3RF zolpidem [Ambien CR] 12.5 mg tablet,ext release multiphase 12.5 mg PO QHS PRN (Reason: insomnia) Qty: 90 1RF venlafaxine [Effexor XR] 150 mg capsule,extended release 24hr 150 mg PO DAILY Qty: 90 3RF pantoprazole 40 mg tablet,delayed release (DR/EC) 40 mg PO DAILY Qty: 90 3RF celecoxib [Celebrex] 200 mg capsule 200 mg PO DAILY Qty: 90 3RF propranolol 40 mg tablet 20 mg PO BID Qty: 90 3RF krsmkarapj-zmeukbvgdcfeh-oryk 50-300-40 mg capsule 2 cap PO Q4H Qty: 30 5RF Discharge Instructions Instructions: Rotator Cuff Injury (ED), Shoulder Pain (ED) Additional Instructions: Please follow-up with disability specialist next week. Return to the emergency department for any further needs. Medical Decision Making 52-year-old female presents after fall from standing down an embankment, fall onto her right side, acute pain to right shoulder, decreased range of motion at right shoulder due to pain, range of motion elbow wrist fingers and hands intact, neurovascular exam of limb intact, neurologically intact alert oriented ambulatory without assistance interactive no respiratory distress. No thoracic or abdominal complaints. Concern for proximal humerus fracture versus shoulder dislocation versus less likely scapular fracture versus less likely clavicular dislocation or fracture given history and physical. Analgesia, anti- inflammatory, muscle relaxant. Close reassessment after x-ray. Disposition pending x-ray results 19: 20 some relief after IV Tylenol, Toradol, benzodiazepine, however still with large pain with attempted range of motion of shoulder. High clinical suspicion for rotator cuff injury. Neurovascular exam of limb intact. X-ray negative for dislocation or fracture. Patient to be given home medications for pain as well as referral for orthopedic surgery. Return precautions given. HPI General Date/Time Provider Initiated Documentation: 06/17/22 17:06 . HPI Narrative: 52-year-old female presents after fall from standing down an embankment on her right side, acute pain to right shoulder worse with movement, no head injury no chest or abdominal pain. Presents with arm held in flexion near side in a sling Related Data Home Medications Medication Instructions Recorded Confirmed fexofenadine 180 mg tablet 180 mg PO DAILY 09/25/19 06/14/22 fluticasone propionate 50 See Rx Instructions intranasal 09/25/19 06/14/22 mcg/actuation nasal DAILY spray,suspension (Flonase Allergy Relief) diclofenac sodium 1 % topical gel 2 gm topical QID 09/30/19 06/14/22 (Voltaren) fluconazole 100 mg tablet 100 mg PO DAILY PRN 09/30/19 06/14/22 (Diflucan) magnesium oxide 500 mg capsule 500 mg PO DAILY 09/30/19 06/14/22 metronidazole 0.75 % (37.5 mg/5 1 appful vaginal DAILY PRN 09/30/19 06/14/22 gram) vaginal gel (Metrogel Vaginal) omega-3s 300 qg-omm-szt-other 4 cap PO DAILY 09/30/19 06/14/22 aipqy7b-rzru oil 1,000 mg capsule red yeast rice 600 mg capsule 600 mg PO BID 12/08/20 06/14/22 progesterone micronized 100 mg 100 mg PO DAILY #90 caps 08/24/21 06/14/22 capsule (Prometrium) sucralfate 1 gram tablet (Carafate) See Rx Instructions PO BID PRN 12/15/21 06/14/22 GI/gastritis #120 tabs ondansetron 4 mg disintegrating 4 mg PO DAILY #14 tabs 03/24/22 06/14/22 tablet togxoldynf-sbcouzsraomxt-lksdylhj 2 cap PO Q4H pain #30 caps 03/31/22 06/14/22 50 mg-300 mg-40 mg capsule estradiol 1 mg tablet 1 mg PO DAILY #90 tabs 04/07/22 06/14/22 cyclobenzaprine 10 mg tablet 10 mg PO TID PRN back pain #90 tabs 04/25/22 06/14/22 zolpidem 12.5 mg tablet,extended 12.5 mg PO QHS PRN insomnia #90 05/08/22 1 release,multiphase (Ambien CR) tabs celecoxib 200 mg capsule (Celebrex) 200 mg PO DAILY #90 caps 05/29/22 06/14/22 pantoprazole 40 mg tablet,delayed 40 mg PO DAILY #90 tabs 05/29/22 06/14/22 release venlafaxine 150 mg 150 mg PO DAILY #90 caps 05/29/22 06/14/22 capsule,extended release 24 hr (Effexor XR) propranolol 40 mg tablet 20 mg PO BID #90 tabs 05/30/22 06/14/22 xnezhnpalz-khclqvvoplzmr-pldcutux 2 cap PO Q4H pain #30 caps 06/15/22 50 mg-300 mg-40 mg capsule lidocaine HCl 4 % topical patch 1 patch topical Q12H PRN pain #10 06/17/22 ea lorazepam 0.5 mg tablet 0.5 mg PO BID PRN #7 tabs 06/17/22 Previous Rx's Medication Instructions Recorded progesterone micronized 100 mg 100 mg PO DAILY #90 caps 08/24/21 capsule (Prometrium) sucralfate 1 gram tablet (Carafate) See Rx Instructions PO BID PRN 12/15/21 GI/gastritis #120 tabs ondansetron 4 mg disintegrating 4 mg PO DAILY #14 tabs 03/24/22 tablet gtxqefbxuq-yrnbbjszxlrww-spztuixt 2 cap PO Q4H pain #30 caps 03/31/22 50 mg-300 mg-40 mg capsule estradiol 1 mg tablet 1 mg PO DAILY #90 tabs 04/07/22 cyclobenzaprine 10 mg tablet 10 mg PO TID PRN back pain #90 tabs 04/25/22 zolpidem 12.5 mg tablet,extended 12.5 mg PO QHS PRN insomnia #90 05/08/22 release,multiphase (Ambien CR) tabs celecoxib 200 mg capsule (Celebrex) 200 mg PO DAILY #90 caps 05/29/22 pantoprazole 40 mg tablet,delayed 40 mg PO DAILY #90 tabs 05/29/22 release venlafaxine 150 mg 150 mg PO DAILY #90 caps 05/29/22 capsule,extended release 24 hr (Effexor XR) propranolol 40 mg tablet 20 mg PO BID #90 tabs 05/30/22 tibwvouwyz-kvtnvzdurkzqn-bppwpfnc 2 cap PO Q4H pain #30 caps 06/15/22 50 mg-300 mg-40 mg capsule lidocaine HCl 4 % topical patch 1 patch topical Q12H PRN pain #10 06/17/22 ea lorazepam 0.5 mg tablet 0.5 mg PO BID PRN #7 tabs 06/17/22 Allergies Allergy/AdvReac Type Severity Reaction Status Date / Time rizatriptan [From Maxalt] Allergy Severe Verified 06/14/22 14:19 sumatriptan [From Imitrex] Allergy Severe Verified 06/14/22 14:19 cat dander Allergy Verified 06/14/22 14:19 kiwi Allergy Anaphylaxsi Verified 06/14/22 14:19 s metronidazole [From Flagyl] Allergy Verified 06/14/22 14:19 codeine AdvReac Nausea and Verified 06/14/22 14:19 Vomiting esomeprazole [From Nexium] AdvReac Psychologically Verified 06/14/22 14:19 Crazy hydrocodone AdvReac Verified 06/14/22 14:19 latex AdvReac Verified 06/14/22 14:19 meperidine [From Demerol] AdvReac Nausea and Verified 06/14/22 14:19 Vomiting montelukast [From Singulair] AdvReac Verified 06/14/22 14:19 nickel AdvReac Verified 06/14/22 14:19 wool AdvReac Verified 06/14/22 14:19 dyes Allergy Uncoded 06/14/22 14:19 environmental Allergy Uncoded 06/14/22 14:19 perfumes Allergy Uncoded 06/14/22 14:19 General Stated Complaint: Orthopedic ANTHONY: 3 Review of Systems Narrative: Review of Systems Constitutional: negative Eyes: negative ENT: negative Cardiovascular: negative Respiratory: negative Gastrointestinal: negative : negative Musculoskeletal: Shoulder pain Skin: negative Neurologic: negative Psych: negative PFSH All Active Problems (Updated 06/17/22 @ 19:25 by Freddy Balderas MD) Injury of shoulder, right (Acute) Chronic facial pain (Acute) Allergic rhinitis (Acute) Encounter for screening for other viral diseases (Acute) Pronation of right foot (Acute 08/31/21) HAV (hallux abducto valgus) (Acute 08/31/21) Right foot Sacroiliac joint dysfunction of left side (Acute) Abnormal blood cell count (Acute) Hyperlipidemia (Acute) Elevated hemoglobin A1c (Acute) Encounter to establish care (Acute) Rhytides (Acute) 06/28/20 Dr. Alvarado Ovarian cyst (Acute) Right ovarian cyst (Acute) 2020: decrease in size from 6cm to 3.4cm Insomnia (Acute) Spinal stenosis at L4-L5 level (Acute) [facility]20[facility]20[facility]; sacroiliac joint dysfunction, spondylosis of lumbar region without myelopathy or radiculopathy. Liv Freeman MD Dysthymia (Acute) Generalized anxiety disorder (Acute) Migraine headache (Chronic) Persistent insomnia (Acute) Esophageal reflux (Chronic) Gastritis (Acute) Medical History Acute appendicitis without mention of peritonitis Depression Surgical History History of esophagogastroduodenoscopy (EGD) History of laparoscopic appendectomy (2007) History of loop electrical excision procedure (LEEP) [place]IR[place] 1-2 (2002) Family History Brother Substance abuse Anxiety Bipolar disorder Depression Hypertension Father Anxiety Diabetes Hypertension Depression Heart disease Sister Anxiety Depression Maternal Grandmother Anxiety Paternal Grandmother Anxiety Mother Cancer Maternal Grandfather Hypertension Paternal Grandfather Hypertension Social History Smoking/Tobacco Use Status: Never Second Hand Exposure: No Smoking risk assessment performed?: Yes Alcohol Intake: current Alcohol Intake frequency: holidays/special occasions only Alcohol type: wine Drug use: Never Substance use type: does not use Adopted: No Caregiver/Support person: No Foster care: No Household members: significant other Housing: house Number of Children: 0 Communication Needs: None Education Level: other Details: MD Do you need help understanding health information?: Never current occupation: General Surgeon, [employer] Pets and animals: Yes Pets and animals: cat(s) Sexually active: Yes Do you think of yourself as: straight/heterosexual Current gender identity: female What is your relationship status?: living with partner How often do you talk on the phone with friends or family?: three or more times per week How often do you get together with friends or relatives?: once per week Do you belong to any clubs or organized social groups?: no Panel score (0-1 are the most socially isolated patients): 2 What type of physical activity do you participate in: weight lifting, other Details: Cardio and yoga Duration: 30-45 minutes/day Frequency: 3-4 times per week Caridad/Yarsanism: Adventist Special caridad needs: No Seatbelt use: always Helmet use: Yes Helmet use: always Drive intox or ride w/intox drivers license examiner: No Do you feel safe at home: Yes Do you feel safe in your relationship?: Yes Female Reproductive History Menstrual control method: permanent sterilization (parnter with vasectomy) History History 0 Para Hx # Term Pregnancies Multiple births Hx # Pregnancies Ectopic pregnancies AB induced Hx Number of Living Children AB spontaneous Exam Narrative Exam Narrative: Physical Examination General: alert, awake, cooperative; acute pain HEENT: normocephalic, atraumatic; PERRL, EOM intact, conjunctiva normal Neck: supple, trachea midline; full ROM Chest: normal to inspection Respiratory: normal respiratory effort, speaking in full sentences Skin: no lesions, rashes or trauma appreciated Neuro: AAOx3, normal speech; ambulatory without assistance Extremities: Pain to lateral aspect of shoulder, no clavicular tenderness or step-off, full range of motion elbow wrist and hand, radial pulse intact sensation in fingers intact motion of fingers hand and wrist intact; decreased range of motion at shoulder due to pain Course Vital Signs Vital signs: Vital Signs Temperature 37.1 C 06/17/22 17:08 Pulse 73 06/17/22 17:08 Respiratory Rate 18 06/17/22 17:08 Blood Pressure 150/129 H 06/17/22 17:08 Pulse Oximetry 96 06/17/22 17:08 Temperature 37.1 C 06/17/22 17:08 Temperature Source Temporal Artery Scan 06/17/22 17:08 Pulse 73 06/17/22 17:08 Respiratory Rate 18 06/17/22 17:08 Respiratory Effort 06/17/22 17:20 Blood Pressure 150/129 H 06/17/22 17:08 Blood Pressure Position Sitting 06/17/22 17:08 Pulse Oximetry 96 06/17/22 17:08 Oxygen Delivery Method Room Air 06/17/22 17:08 Oxygen Flow Rate 0 06/17/22 17:08 Pain Level 6 06/17/22 17:38
--- NOTE | 2022-06-17 17:59 | DI.VRAD_ITS ---
PROCEDURE INFORMATION: Exam: XR Right Humerus Exam date and time: 06/17/2022 5:52 PM Age: 52 years old Clinical indication: Injury or trauma; Other: Pain after fall TECHNIQUE: Imaging protocol: Radiologic exam of the Right humerus. Views: 2 or more views. COMPARISON: CR XR SHOULDER RT COMPLETE 2+V 06/17/2022 5:47 PM FINDINGS: Bones/joints: Degenerative changes. No acute fracture or dislocation Soft tissues: Normal. IMPRESSION: No acute findings. Dictated and Authenticated by: Azael Castro MD. Ordering:DOTTIE Hayes MD
--- NOTE | 2022-06-17 17:59 | DI.VRAD_ITS ---
PROCEDURE INFORMATION: Exam: XR Right Shoulder Exam date and time: 06/17/2022 5:47 PM Age: 52 years old Clinical indication: Injury or trauma; Other: Pain after fall TECHNIQUE: Imaging protocol: Radiologic exam of the Right shoulder. Views: 2 or more views. COMPARISON: No relevant prior studies available. FINDINGS: Bones/joints: Normal. Soft tissues: Normal. IMPRESSION: No acute findings. Dictated and Authenticated by: Azael Castro MD. Ordering:DOTTIE Hayes MD
[2022-06-17] MEDS: Ketorolac 15 MG/ML VIAL IVP (18:59)
== END 2022-06-17 19:42 | disposition home or self-care (01) ==
PROVIDERS: Emergency Provider Emergency Medicine; PCP Nurse Practitioner
DX: S49.91XA Unspecified injury of right shoulder and upper arm, initial encounter (principal); W17.81XA Fall down embankment (hill), initial encounter
CPT/HCPCS: 96374; 96375; 96376; 99284; 73030; 73060; J0131; J1885; J2060

== ENCOUNTER → 2022-06-19 12:18 | Outpatient (CLI) | payer OTHER, SELFPAY ==
--- NOTE | 2022-06-19 12:00 | DI.MRI_ITS ---
Exam(s) MR UPPER JOINT RT WO EXAM: MR UPPER JOINT RT WO CLINICAL HISTORY: traumatic weakness, pain,traumatic tear rt rotator cuff, s46.011a. TECHNIQUE: Multiplanar multisequence MRI was performed. COMPARISON: Plain films 17 June 2022 FINDINGS: Exam is limited by patient motion. BONES: There is no fracture or contusion pattern. JOINTS:The acromioclavicular joint shows degenerative changes with inferior spurring... The glenohum eral joint is normal. TENDONS: Supraspinatus: Full-thickness tear with slight retraction. Thickening consistent with underlying ten dinosis. Infraspinatus: Small focal area high signal could represent a partial tear. Subscapularis: Unremarkable. Teres [place]: Unremarkable. Biceps and [place]: Unremarkable. MUSCLES: Unremarkable. GLENOID LABRUM: Unremarkable on this noncontrast examination. SOFT TISSUES: Edema seen anterior to proximal humeral shaft. OTHER: Subacromial and subdeltoid bursae show small amount of fluid.. IMPRESSION: Full-thickness tear of the supraspinatus tendon. Question of small focal tear infraspinatus tendon. DATA REPOSITORY:
== END ==
PROVIDERS: PCP Nurse Practitioner; Visit Provider Student in an Organized Health Care Education/Training Program
DX: M75.101 Unspecified rotator cuff tear or rupture of right shoulder, not specified as traumatic (principal)
CPT/HCPCS: 73221

== ENCOUNTER 2022-07-06 05:57 | Day surgery (SDC) | payer OTHER, SELFPAY ==
--- NOTE | 2022-07-04 12:01 | ANES.PREOP_ITS ---
General Info Date of Service Date Performed: 07/04/22 Height: 5 ft 5 in Weight: 63 kg Body Mass Index (BMI): 23.1 Surgical Procedure: Operation Date: 07/06/22 07:40 Proposed Procedure Side Surgeon p SHOULDER ARTHROSCOPY W/POSSIBLE BICEPS TENODESIS, SUBACROMIAL DECOMPRESSION, RCR W/POSSIBLE ALLOGRAFT AUGMENTATION/SC RECONSTRUCTION Right Michael Mendoza MD Meds Allergies and Home Medications Allergies Allergy/AdvReac Type Severity Reaction Status Date / Time rizatriptan [From Maxalt] Allergy Severe Verified 06/14/22 14:19 sumatriptan [From Imitrex] Allergy Severe Verified 06/14/22 14:19 cat dander Allergy Verified 06/14/22 14:19 kiwi Allergy Anaphylaxsi Verified 06/14/22 14:19 s metronidazole [From Flagyl] Allergy Verified 06/14/22 14:19 omeprazole [From Prilosec] AdvReac Intermediate Verified 06/20/22 11:49 codeine AdvReac Nausea and Verified 06/14/22 14:19 Vomiting esomeprazole [From Nexium] AdvReac Psychologically Verified 06/14/22 14:19 Crazy hydrocodone AdvReac Verified 06/14/22 14:19 latex AdvReac Verified 06/14/22 14:19 meperidine [From Demerol] AdvReac Nausea and Verified 06/14/22 14:19 Vomiting montelukast [From Singulair] AdvReac Verified 06/14/22 14:19 nickel AdvReac Verified 06/14/22 14:19 wool AdvReac Verified 06/14/22 14:19 dyes Allergy Uncoded 06/14/22 14:19 environmental Allergy Uncoded 06/14/22 14:19 perfumes Allergy Uncoded 06/14/22 14:19 PO NSAIDS AdvReac Intermediate Uncoded 06/20/22 11:49 Home Medication Medication Instructions Recorded fexofenadine 180 mg tablet 180 mg PO DAILY 09/25/19 fluticasone propionate 50 See Rx Instructions intranasal 09/25/19 mcg/actuation nasal DAILY spray,suspension (Flonase Allergy Relief) diclofenac sodium 1 % topical gel 2 gm topical QID 09/30/19 (Voltaren) fluconazole 100 mg tablet 100 mg PO DAILY PRN 09/30/19 (Diflucan) magnesium oxide 500 mg capsule 500 mg PO DAILY 09/30/19 metronidazole 0.75 % (37.5 mg/5 1 appful vaginal DAILY PRN 09/30/19 gram) vaginal gel (Metrogel Vaginal) omega-3s 300 av-clq-dhu-other 4 cap PO DAILY 09/30/19 qseka3x-dfbs oil 1,000 mg capsule red yeast rice 600 mg capsule 600 mg PO BID 12/08/20 progesterone micronized 100 mg 100 mg PO DAILY #90 caps 08/24/21 capsule (Prometrium) sucralfate 1 gram tablet (Carafate) See Rx Instructions PO BID PRN 12/15/21 GI/gastritis #120 tabs ondansetron 4 mg disintegrating 4 mg PO DAILY #14 tabs 03/24/22 tablet zyxlaaemmw-natlubfvicyto-wmtdkriw 2 cap PO Q4H pain #30 caps 03/31/22 50 mg-300 mg-40 mg capsule estradiol 1 mg tablet 1 mg PO DAILY #90 tabs 04/07/22 zolpidem 12.5 mg tablet,extended 12.5 mg PO QHS PRN insomnia #90 05/08/22 release,multiphase (Ambien CR) tabs celecoxib 200 mg capsule (Celebrex) 200 mg PO DAILY #90 caps 05/29/22 pantoprazole 40 mg tablet,delayed 40 mg PO DAILY #90 tabs 05/29/22 release venlafaxine 150 mg 150 mg PO DAILY #90 caps 05/29/22 capsule,extended release 24 hr (Effexor XR) propranolol 40 mg tablet 20 mg PO BID #90 tabs 05/30/22 zinyjpvxrk-kgwzckanowfdt-ytgbadiu 2 cap PO Q4H pain #30 caps 06/15/22 50 mg-300 mg-40 mg capsule lorazepam 0.5 mg tablet 0.5 mg PO BID PRN #7 tabs 06/17/22 cyclobenzaprine 10 mg tablet 10 mg PO TID PRN back pain #90 tabs 06/20/22 tramadol 50 mg tablet (Ultram) 50 mg PO Q6H PRN pain #10 tabs 06/26/22 lidocaine 5 % topical patch 1 patch topical Q12H PRN #10 ea 06/27/22 PFSH Active Problems Active Problems: Problem Status Onset Code SLAP lesion of right shoulder S43.431A Traumatic tear of right rotator cuff 10/29/22 S46.011A Chronic facial pain R51.9, G89.29 Allergic rhinitis J30.9 Encounter for screening for other viral diseases Z11.59 Pronation of right foot 08/31/21 M21.6X1 HAV (hallux abducto valgus) 08/31/21 M20.10 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 Abnormal blood cell count R79.9 Hyperlipidemia E78.5 Elevated hemoglobin A1c R73.09 Encounter to establish care Z76.89 Rhytides L90.8 Ovarian cyst N83.209 Right ovarian cyst N83.201 Insomnia G47.00 Spinal stenosis at L4-L5 level M48.061 Dysthymia F34.1 Generalized anxiety disorder F41.1 Migraine headache G43.909 Persistent insomnia G47.00 Esophageal reflux K21.9 Gastritis K29.70 Medical History Medical History Acute appendicitis without mention of peritonitis Depression Surgical History Surgical History History of esophagogastroduodenoscopy (EGD) History of laparoscopic appendectomy (2007) History of loop electrical excision procedure (LEEP) [place] 1-2 (2002) Tobacco Smoking/Tobacco Use Status: Never Passive smoking exposure: No Second hand exposure: No Alcohol Alcohol Intake: current Alcohol intake frequency: holidays/special occasions only Alcohol type: wine Substance Use Substance use: Never Substance use type: does not use Prental History History 0 Para Hx # Term Pregnancies Multiple births Hx # Pregnancies Ectopic pregnancies AB induced Hx Number of Living Children AB spontaneous Vital Signs and Lab Results Lab Results Blood Type / Crossmatch: No Data to Display Complete Blood Count: No Data to Display Complete Metabolic Panel: No Data to Display Liver Function Panel: No Data to Display Coagulation Panel: 2 No Data to Display Cardiac Panel: No Data to Display Arterial Blood Gas: No Data to Display Venous Blood Gas: No Data to Display Pancreas Panel: No Data to Display Thyroid Panel: No Data to Display Infectious Disease: No Data to Display Blood Cultures: No Data to Display Toxicology Panel: No Data to Display Panel: No Data to Display Anesthesia Assessment and Plan Anesthesia History Personal History: PONV Family History: No Family History of Anesthesia Complications Exercise Tolerance Exercise Tolerance: Metabolic Equivalents>4 Cardiac & Pulmonary Exam Cardiac Exam: Normal S1/S2 Heart Sounds Pulmonary Exam: Clear Bilateral Breath Sounds Implantable Cardiac Device Does patient have a Pacemaker or an ICD?: No Airway Exam Known Difficult Airway: No Mallampati Class: 1 Mouth Opening: Normal (> 3cm) Thyromental Distance: Greater than 3 cm Neck Range of Motion: Full ROM Neck Circumference: Normal Teeth Condition: Normal Dentition ASA Classification ASA Score: ASA 2 Emergency Case?: No NPO Status NPO Status: NPO Clears >2 hours, Solids >8 hours Status Status: Negative HCG Anesthesia Plan Resuscitation Status: Full Code Anesthesia Technique: General Anesthesia Airway Planned: Endotracheal Tube Pain Management: Surgeon and patient request nerve block Monitors Used: Standard Monitors Preoperative Comments:: 52 yo female for RTC repair. Sig PMHx: Spinal stenosis, GERD (moderatly controlled)/Gastritis. Discussed risks, benifits, and alternitives to GA with regional anestheisa. Unde rstands risk of perm nerve injury. plan for GAETT (GERD) with interscalene block.
[2022-07-04 12:05] VITALS: BMI 23.1
[2022-07-06] VITALS (13 sets, daily range): BP systolic 86–118; BP diastolic 44–81; PULSE 60–76; RESP 12–19; TEMP 36.3–36.6; O2SAT 95–99
[2022-07-06] MEDS: Midazolam/Ketamine/Ondansetron (3/25/2MG) 1 TAB 1 EACH SL (06:30)
[2022-07-06] MEDS: Lactated Ringers 1,000 ML 30 ML IV (07:00)
--- NOTE | 2022-07-06 07:10 | W.ANESNERVE ---
Nerve Block Single Injection Procedure Date and Time Date Performed: 07/06/22 Procedure Start: 07:01 Location Where Procedure Performed Procedure Location: Day Surgery Unit Reason Performed: Postoperative Analgesia Requesting Provider: Michael Mendoza Timeout Performed Timeout Performed: Yes Monitoring Used ECG, Blood Pressure and SpO2 Sterility Sterility: Hand Hygiene, Surgical Cap, Surgical Mask, Sterile Gloves and Chlorhexidine Sedation Given During Procedure Sedation Given (Indicate Dose Given): Versed IV Dose:: 2 mg and Ketamine IV (5 mg + 5 mg) Dose:: 10 mg Patient Mental Status Patient Mental Status: Sedate with meaningful communication Nerve Block 1st Nerve Block: Laterality: Right Block Type: Interscalene Needle / Catheter Used: 100mm SonoPlex II Local Anesthetic Bolus (Indicate Dose Given): Lidocaine used for local infiltration of skin, Bupivacaine 0.5% Dose:: 15 mL and Exparel Dose:: 10 mg Additives (Indicate Dose Given): None Ultrasound: Sterile probe cover and gel used Ultrasound Image Saved?: Yes Nerve Stimulator: Supplement to Ultrasound use and No twitch or parasthesia noted < 0.5 mA Paresthesia: Right Paresthesia Duration: Transient Procedure Tolerated: No Complications Procedure Outcome: Successful Performed By: Efe Mueller
[2022-07-06] MEDS: ceFAZolin 2 GM/50 ML BAG IVPB (07:48)
--- NOTE | 2022-07-06 08:00 | ROE_ITS ---
Date of service: 07/06/22 Time of Service: 07:30 Operative Note Operative Note DATE OF PROCEDURE: 07/06/22 PRE-OP DIAGNOSIS: Right: 1. Rotator cuff tear 2. SLAP tear with LHB tendinopathy 3. Bursitis POST-OP DIAGNOSIS: same PROCEDURE: Right: 1. Rotator cuff repair, CPT# 85482. This involved repair of the supraspinatus and infraspinatus using anchors and sutures to reattach the rotator cuff back to the footprint of the greater tuberosity. 2. Arthroscopic biceps tenodesis, CPT# 35051. This involved arthroscopically suturing and reattaching the long head of the biceps tendon to the proximal humerus at the superior margin of the bicipital groove with a screw at the correct tension. 3. Extensive debridement, CPT# 89131. This involved using arthroscopic hand instruments, power instruments, and radiofrequency instruments to release the long head of the biceps tendon and debride areas of labral tearing, SLAP tear, synovitis, and chronic bony changes about the greater tuberosity working within the glenohumeral joint anteriorly, superiorly and posteriorly. 4. Subacromial decompression with partial acromioplasty, CPT# 89734. This involved using arthroscopic power instruments and a radiofrequency wand to complete a bursectomy and abrade the undersurface of the acromion as bone marrow stimulation to aid in healing of this large, medial trans-tendinous tear. The library services assistant was medically required in order to help assist in techniques above, which require positioning the arm, holding the arthroscope, and manipulating multiple instruments and sutures at the same time. This cannot be done without the help of an experienced library services assistant. SURGEON: Michael Mendoza AUTOMATIC FOLDER SEAMER: Bianka Mcnair ANESTHESIA TYPE: General LMA/ETT and Primary Nerve Block Refer to Anesthesia Record ESTIMATED BLOOD LOSS: 10 PATHOLOGY: none sent COMPLICATIONS: None Patient was transported to: PACU Patient's condition: stable Implants: Arthrex: 4.75mm knotless SwiveLocks x 2, 5.5mm SwiveLocks x 2 Indications: The patient was diagnosed with the above conditions and appropriately indicated for surgical intervention. Please see complete medical record for details. Findings: Exam under anesthesia: Motion, no instability Glenohumeral joint: Moderate anterior synovitis with anterior labral tearing and fraying and chronic?appearing SLAP tear. Biceps with moderate injection and instability into the rotator cuff tear. Fairly significant rotator interval synovitis. Mild posterior synovial labral fraying. A few small synovial versus cartilaginous loose bodies glenohumeral joint and axillary recess. Subacromial space: Massive medial transtendinous supraspinatus and into infraspinatus rotator cuff tear. Biceps unstable into anterior tear with significant injection. No significant hemorrhagic bursitis, but significant and highly abnormal appearing supraspinatus tendon thickening throughout with probable fibrinous changes at the tear margin medially and lateral tendon remnant as well as over the exposed medial most aspect of the greater tuberosity. Significant tendon remnant covering the majority of the greater tuberosity. Millimeters exposed medially anterior and through the supraspinatus with more of a split between the supraspinatus and infraspinatus wrapping around posteriorly and medially. Procedure Description: In the operating room, general anesthesia was induced. Bilateral shoulders were examined. The patient was positioned in the beachchair position. All bony prominences were well-padded. Preoperative antibiotics were administered. The shoulder was prepped and draped in the usual sterile fashion. The correct patient, procedure, and side of the procedure were all verified prior to incision. Starting through the posterior portal a standard complete diagnostic arthroscopy was performed of the glenohumeral joint including inspection of the long head of the biceps, anterior and superior labrum, subscapularis tendon, supraspinatus and infraspinatus tendons, and axillary recess. The glenoid and humeral head cartilage as well as the posterior labrum were inspected from an anterior viewing portal. Significant findings and interventions noted above. The biceps tendon was secured using a suture tape FiberLink passed around the tendon secured with a luggage tag stitch, and then passed through the tendon again using the scorpion suture passer. The biceps tendon was withdrawn to the superior aspect of the bicipital groove and repair stitch kept out of the way anteriorly for later fixation with the rotator cuff. Starting through the posterior portal, the arthroscope was directed into the subacromial space. A lateral 50 yard line lateral portal was created. A combination of power instruments and a radiofrequency ablator were used to debride bursitis anteriorly, posteriorly, and laterally as well as expose the undersurface of the acromion. The coracoacromial ligament was minimally released. The bursectomy was completed viewing laterally and working from posteriorly and the rotator cuff was thoroughly inspected with findings noted above. The large complex rotator cuff tear was thoroughly inspected and arm position optimized for debridement, reduction, and fixation. The tendon ends were significantly thickened, but there were no delaminated layers. The medialmost aspect of the greater tuberosity supraspinatus footprint was available for tendon bone fixation and prepared to optimize healing removing what appeared to be chronic fibrinous changes. The significant lateral tendon remnant covering the majority of the supraspinatus and infraspinatus attachment to the greater tuberosity was preserved. The medial and lateral tendon edges were debrided to a stable margin preserving the majority of each tendon and optimizing tissue quality and viability for healing. Through the superior anterior lateral portal, an anterior medial row anchor was pretty punched and then a 4.75 mm knotless SwiveLock anchor was loaded with a FiberTape and the biceps tenodesis repair stitch securing the biceps tendon at the superior aspect of the bicipital groove anterior aspect of the tendon repair as well as potentially adding biol ogy to this tenuous rotator cuff tendon repair zone. The FiberTape's were passed through the supraspinatus at the appropriate level medially to the anchor. The knotless repair stitch and shuttle sutures were then each passed separately just lateral to the tapes, and the repair suture shuttled appropriately through the anchor but left slightly loose for continued repairing, to provisionally create a horizontal mattress knotless ripstop configuration. There was excellent provisional reduction of the anterior aspect of the rotator cuff tear both to greater tuberosity bone and lateral tendon re mnant. This was repeated with a posterior medial row 4.75 mm anchor, which was double loaded with fiber tapes. The fiber tapes were passed at the appropriate level medially incorporating the central and posterior aspects of this large tear. The knotless repair stitch and shuttle sutures were also passed through the tendon lateral to these tapes, and then shuttled through the anchor, again loosely tensioned to provisionally establish ripstop configuration. Again there was excellent tendon to medial bone and lateral remnant apposition and fixation strength. Prior to securing the medial row knotless fixation, the self retrieving suture passer was used to shuttle a suture tape through medial tear between the supraspinatus and infraspinatus in a simple stitch configuration and secured together using an SMC arthroscopic knot. Each medial row knotless horizontal mattress suture was gently brought down to tendon confirming appropriate reduction, but final tightening left for after the lateral row and tendon to tendon fixation. An anterior FiberTape and FiberTape from each of the central and posterior medial row positions was brought out laterally and secured to an anterior lateral row 5.5 mm anchor, with the larger anchor chose for added fixation strength as well as larger eyelet to accommodate the additional FiberTape. This was repeated again with the remaining 3 medial row FiberTape's and secured to a posterior lateral row anchor. Care was taken to establish appropriate tension on the tapes well opposing medial and lateral tendon, but no over tensioning given the short amount of tendon tissue to work with from this medial tear. Lateral tapes were cut. The medial horizontal mattresses were final tightened and cut. There was remarkably excellent reduction and compre ssion of rotator cuff tissue from anterior, central, medially along the prior large void with tendon secured both to medial row bone and lateral tendon remnant as well as posterior between the supraspinatus and infraspinatus the biceps tendon stump could be visualized most anteriorly as well as probably the most anterior aspect of the rotator and supraspinatus cable. Additional suture fixation was added given this complex tear pattern using the self retrieving suture passer to pass a suture tape through this biceps tendon stump and then under and through this anteriormost rotator cuff tissue and under and up through the lateral thin remnant crescent tissue. The sutures in this tissue over the bicep was secured using again an arthroscopic SMC knot. The repair was stable through range of motion and probing. Lastly the undersurface of the acromion was abraded as bone marrow stimulation technique to aid in healing. The shoulder was drained of arthroscopic fluid. All portal sites were copiously irrigated. These incisions were closed using 3-0 Monocryl in a buried fashion and then covered with Mastisol, Steri-Strips, Xeroform, dry gauze, and ABDs. The dressings were covered and secured with Medipore tape. The operative extremity was placed into a sling for immobilization. The patient awoke from anesthesia without complication and was transferred to the recovery room in a st able condition.
[2022-07-06] MEDS: EPINEPHrine 30 MG/30 ML VIAL (10:23)
--- NOTE | 2022-07-06 11:00 | PDOC.DSDIS_ITS ---
Date of service: 07/06/22 Time of Service: 11:00 Discharge Plan Disposition Patient Disposition: HOME Condition: Good Discharge Details Reason For Visit: Right shoulder surgery Attending Provider: Michael Mendoza Primary Care Provider: Desire Julian Home Meds and New Rx's Prescriptions: New celecoxib 200 mg capsule 200 mg PO DAILY PRN (Reason: pain) Qty: 90 0RF ondansetron 4 mg tablet,disintegrating 4 mg PO Q6H PRN (Reason: nausea or vomiting) Qty: 9 0RF tramadol 100 mg tablet 100 mg PO Q6H PRNQty: 18 0RF Continued magnesium oxide 500 mg capsule 500 mg PO DAILY dpird-7n-gus-epa-fish oil 300-1,000 mg capsule 4 cap PO DAILY diclofenac sodium [Voltaren] 1 % gel 2 gm TP QID metronidazole [Metrogel Vaginal] 0.75 % gel 1 appful VG DAILY PRN fluconazole [Diflucan] 100 mg tablet 100 mg PO DAILY PRN red yeast rice 600 mg capsule 600 mg PO BID Rx Instructions: give with meal/snack progesterone micronized [Prometrium] 100 mg capsule 100 mg PO DAILY Qty: 90 4RF sucralfate [Carafate] 1 gram tablet See Rx Instructions PO BID PRN (Reason: GI/gastritis) Qty: 120 1RF Rx Instructions: 1gram (1 tab) PO twice a day PRN; fexofenadine 180 mg tablet 180 mg PO DAILY fluticasone propionate [Flonase Allergy Relief] 50 mcg/actuation spray,susp ension See Rx Instructions AMELIA DAILY Rx Instructions: 1-2 sprays intranasal daily; ondansetron 4 mg tablet,disintegrating 4 mg PO DAILY Qty: 14 0RF estradiol 1 mg tablet 1 mg PO DAILY Qty: 90 1RF zolpidem [Ambien CR] 12.5 mg tablet,ext release multiphase 12.5 mg PO QHS PRN (Reason: insomnia) Qty: 90 1RF venlafaxine [Effexor XR] 150 mg capsule,extended release 24hr 150 mg PO DAILY Qty: 90 3RF pantoprazole 40 mg tablet,delayed release (DR/EC) 40 mg PO DAILY Qty: 90 3RF celecoxib [Celebrex] 200 mg capsule 200 mg PO DAILY Qty: 90 3RF propranolol 40 mg tablet 20 mg PO BID Qty: 90 3RF vcvcutynkq-jhcfedkklfvje-ekwd 50-300-40 mg capsule 2 cap PO Q4H Qty: 30 5RF cyclobenzaprine 10 mg tablet 10 mg PO TID PRN (Reason: back pain) Qty: 90 3RF lidocaine 5 % adhesive patch,medicated 1 patch topical Q12H PRN Qty: 10 3RF Rx Instructions: leave on most painful area for up to 12 hrs lorazepam 0.5 mg tablet 0.5 mg PO BID PRNQty: 7 0RF Rx Instructions: prn severe muscle spasm Discontinued tramadol [Ultram] 50 mg tablet 50 mg PO Q6H PRN (Reason: pain) Qty: 10 0RF Discharge Instructions Additional Instructions: Surgery: Right shoulder arthroscopy with rotator cuff repair (massive medial trans-tendinous supraspinatus and infraspinatus), biceps tenodesis, extensive debridement, and subacromial decompression. Activity: For 6 weeks, you should keep your arm at your side in a neutral position at all times except for physical therapy. Do not try to lift or raise your arm using your own muscles. You should use the sling whenever you are out of the house. You may have to adjust the abduction pillow or remove it for comfort. At home it is best to remove the sling and rest the arm on a pillow at your side or support the operative side with your other hand. You may allow the arm to dangle at your side. A physical therapy prescription will be sent electronically to begin in about 3 weeks. CONSERVATIVE protocol. Prescriptions: Celecoxib 200 mg take 1 every 24 hours with a meal as needed for moderate pain Tramadol 100 mg take 1 every 4-6 hours as needed for severe pain You may use glcn-wuj-urqsokn Tylenol (acetaminophen) as needed for mild pain. These pain medications may be taken all at once or in different combinations as needed. Ondansetron (Zofran) 4 mg take 1 orally dissolving tablet every 6 hours as nee ded for nausea or vomiting Also, recommend Colace (docusate) or a daily Probiotic as surgery and pain medicine cause constipation. You may try igdh-zrh-wyrvxhg diphenhydramine (Benadryl) 25-50 mg nightly as a sleep aid Dressings: Remove shoulder bandage after 3 days. Leave the sticky Steri-Strips in place until they fall off or remove them after you shower. Cover the incisions with Band-Aids or leave them open to air. You may shower after 5 days. Follow-up: 10-[address] Mendoza You may take off the leg compression stockings this evening at home. You may also leave them on a few days longer if you have a history of leg swelling or edema. Let us know right away if you develop any redness, drainage, fevers, chest pain, or trouble breathing. Do not drink alcohol or drive for at least 24 hours after anesthesia. Please call the office during business hours with any questions or concerns. DS: Diagnosis Discharge Diagnosis (1) Traumatic tear of right rotator cuff: Status: Acute
--- NOTE | 2022-07-06 12:40 | W.ANESPOSTOP ---
Postoperative Evaluation Date, Time and Location Date Performed: 07/06/22 Time Performed: 12:10 Patient Location: PACU Vital Signs Most Recent Imported Vital Signs: Most Recent Vital Signs Temp Pulse Resp BP Pulse Ox 36.3 C L 60 16 91/56 L 99 07/06/22 11:55 07/06/22 11:55 07/06/22 11:55 07/06/22 11:55 07/06/22 11:55 Pain Score Most Recent Pain Score: Most Recent Pain Score Pain Level 0 07/06/22 11:55 Assessment Mental Status: Awake (Alert & Oriented to Patient Baseline) Airway and Respiratory Function: Patent airway with normal (patient baseline) respiratory exam Cardiovascular Function: Hemodynamically Stable Hydration Status: Adequately Hydrated Nausea & Vomiting: No Nausea or Vomiting Pain: Pain is tolerable per patient Peripheral Nerve Block: Regional nerve block not resolved at time of post operative discharge
== END 2022-07-06 14:07 | disposition home or self-care (01) ==
PROVIDERS: PCP Nurse Practitioner; Visit Provider Student in an Organized Health Care Education/Training Program
PROC: (CPT 29827; principal; 2022-07-06 07:30)
DX: S46.011A Strain of muscle(s) and tendon(s) of the rotator cuff of right shoulder, initial encounter (principal); S43.431A Superior glenoid labrum lesion of right shoulder, initial encounter; M75.51 Bursitis of right shoulder; M75.21 Bicipital tendinitis, right shoulder; V19.88XA Pedal cyclist (driver) (passenger) injured in other specified transport accidents, initial encounter
CPT/HCPCS: 29827; 29828; 29826; 29823; 76942; J0131; J0690; J1100; J1885; J2250; J2370; J2405; J2704

== ENCOUNTER 2022-09-13 01:28 | Outpatient (CLI) | payer OTHER, SELFPAY ==
--- NOTE | 2022-09-13 06:45 | DI.MRI_ITS ---
Exam(s) MR LUMBAR SPINE WO EXAM: MR LUMBAR SPINE WO CLINICAL HISTORY: spinal stenosis, back pain, LLE pain,weakness,numbness,tingling lower ext,. TECHNIQUE: Multiplanar multisequence MRI of the Lumbar spine was performed. COMPARISON: MR MR LUMBAR SPINE WO from 11/13/2019 CR,XR XR HUMERUS RT from 06/17/2022 FINDINGS: Bones: The last intervertebral disc space is designated the L5/S1 level for the numbering purpose of this examination. The vertebral body heights are well maintained. There is a mild degenerative levo scoliosis. The marrow signal characteristics are unremarkable except for mild degenerative signal ch anges in the endplates greatest at L5-S1. Hemangiomas are again noted at multiple levels, with the l argest at S1. No change in appearance.. Cord: The conus tip ends at the T12 level. It is of normal size and signal intensity. T12-L1: No disc herniations or bulges are present. No central spinal canal or neural foraminal stenos is. L1-2: No disc herniations or bulges are present. No central spinal canal or neural foraminal stenosis . L2-3: Minimal disc bulging. No central spinal canal or neural foraminal stenosis. L3-4: Mild disc bulging, somewhat more prominent when compared with the previous exam. Mild facet de generative changes and ligamentous hypertrophy again cause mild narrowing of the central canal and mi ld right neural foraminal narrowing. L4-5: further worsening of disc bulging and facet degenerative changes now causing severe central ca nal stenosis. Moderate right neural foraminal narrowing is present. There is now a small facet join t cyst seen on the right as well as fluid within the facet joints.. L5-S1: Disc bulging, relatively stable. Small right paracentral disc protrusion. Facet joint degene rative changes combine with the disc bulging to produce severe left neural foraminal narrowing and mi ld right neural foraminal narrowing. No significant central canal stenosis. The visualized SI joints and sacrum are well maintained. Soft tissues: The paraspinal soft tissues are unremarkable. IMPRESSION: Worsening of degenerative changes at L4-5 and particularly of the facet joints, now causing severe ce ntral canal stenosis and moderate right neural foraminal narrowing. Worsening of degenerative changes at L5-S1, mainly of the facet joints, causing severe left neural fo raminal narrowing. DATA REPOSITORY:
== END 2022-09-13 01:48 ==
LOC: DI 01:28
PROVIDERS: PCP Nurse Practitioner; Visit Provider Nurse Practitioner
DX: M54.59 Other low back pain (principal); M48.062 Spinal stenosis, lumbar region with neurogenic claudication; R20.2 Paresthesia of skin; R29.898 Other symptoms and signs involving the musculoskeletal system; M51.37 Other intervertebral disc degeneration, lumbosacral region; M47.817 Spondylosis without myelopathy or radiculopathy, lumbosacral region
CPT/HCPCS: 72148

== ENCOUNTER 2022-09-20 12:16 | Outpatient (CLI) | payer OTHER, SELFPAY ==
--- NOTE | 2022-09-20 12:30 | DI.RAD_ITS ---
Exam(s) XR PAIN CLINIC LUMBAR SP 2V EXAM: XR PAIN CLINIC LUMBAR SP 2V CLINICAL HISTORY: Dx: Lumbar Radiculopathy. TECHNIQUE: Fluoroscopy was provided for the referring physician for guidance with performing pain cl inic injection procedure. COMPARISON: No exams were available for comparison FINDINGS: Please see procedure note for details. Fluoro time: 15.6 seconds RADIATION DOSE DELIVERED: Ka,r=3.96 mGy
[2022-09-20 12:33] VITALS: BP 138/80; PULSE 69; RESP 20; TEMP 37; O2SAT 97
[2022-09-20 13:20] VITALS: BP 137/86; PULSE 71; RESP 20; O2SAT 95
[2022-09-20] MEDS: Omnipaque 240 MG/ML 50 ML BTL IJ (13:23)
[2022-09-20] MEDS: methylPREDNISolone ACETATE 80 MG/ML VIAL IJ (13:23)
--- NOTE | 2022-09-26 14:28 | PDOC.PAIN_ITS ---
Date of service: 09/20/22 Time of Service: 13:30 Pain Clinic Procedure Note Procedure Note Procedure Note: Lumbar Epidural Steroid Injection Procedure Note COMMENTS: I evaluated her earlier today. Pre-procedure pain VAS was 5/10. Dx: Lumbar radiculopathy Bianka Leonardo has been referred to the [facility] for lumbar epidural steroid injection. The patient was greeted by the nurse who verified patients name and . Patient was then taken to the fluoroscopy suite. The patient was interviewed and the medial record reviewed. There were no medical, pharmacologic, radiographic, or other structural contraindications to attempting fluoroscopically guided lumbar epidural steroid injection. Risks and expected side effects as well as potential benefits of the procedure were reviewed and voiced concerns expressed. The patient consent form was signed and witnessed. Standard patient time-out procedure was performed. The patient was placed in the prone position on the fluoroscopy table and automated blood pressure cuff and pulse oximeter applied. The skin entry point for entering/approaching the epidural space at L5-S1 and marked. Following thorough chlorhexadine preparation of the skin and draping and 1% lidocaine infiltration of the skin entry point and subcutaneous tissues, a 18 gauge Touhy needle was placed under fluoroscopic guidance and with loss of resistance technique into the epidural space. Needle tip placement and depth were aided and confirmed by fluoroscopy. There was no paresthesia or return of blood or CSF through the needle. 1 cc's of Omnipaque 240 was injected with clear epidural spread confirmed with fluoroscopy. 80mg depomedrol was injected. There was not any unusual discomfort expressed by Bianka Leonardo. Patient's vital signs were stable throughout the procedure and were as recorded in nursing records. Follow up plans and appointments were discussed with patient. Post procedure instruction was given as documented in nursing records and having met discharge criteria and was discharged from the [facility]. COMMENTS: Post-procedure pain VAS was 2/10. If this procedure is helpful, it can be completed up to 3 times per 12 months. Carlo Levy DO, MPH [facility]-Pain Management [facility]
== END 2022-09-20 12:17 | disposition home or self-care (01) ==
LOC: PC 12:17
PROVIDERS: PCP Nurse Practitioner; Visit Provider Preventive Medicine Occupational Medicine
DX: M54.16 Radiculopathy, lumbar region (principal)
CPT/HCPCS: 62323; 72100; J1040; Q9967

== ENCOUNTER 2022-11-22 11:42 | Outpatient (CLI) | payer OTHER, SELFPAY ==
--- NOTE | 2022-11-22 06:00 | DI.RAD_ITS ---
Exam(s) XR PAIN CLINIC LUMBAR SP 2V EXAM: XR PAIN CLINIC LUMBAR SP 2V CLINICAL HISTORY: Dx: Lumbar Radiculopathy. TECHNIQUE: Fluoroscopy was provided for the referring physician for guidance with performing pain cl inic injection procedure. COMPARISON: No exams were available for comparison FINDINGS: Please see procedure note for details. Fluoro time: 14.6 seconds RADIATION DOSE DELIVERED: Ka,r=2.88 mGy
[2022-11-22 11:59] VITALS: BP 108/82; PULSE 60; RESP 20; TEMP 36.6; O2SAT 98
[2022-11-22] MEDS: methylPREDNISolone ACETATE 80 MG/ML VIAL IJ (12:38)
[2022-11-22 12:39] VITALS: BP 127/69; PULSE 78; RESP 13; O2SAT 98
[2022-11-22] MEDS: Omnipaque 240 MG/ML 50 ML BTL IJ (12:39)
--- NOTE | 2022-11-23 10:55 | PDOC.PAIN ---
Date of service: 11/22/22 Time of Service: 13:00 Pain Clinic Procedure Note Procedure Note Procedure Note: Lumbar Epidural Steroid Injection Procedure Note COMMENTS:She did excellent with her last LESI. 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 Dx: Lumbosacral radiculopathy Pre-procedure pain VAS wa 03/29 Bianka Leonardo has been referred to the [facility] for lumbar epidural steroid injection. The patient was greeted by the nurse who verified patients name and . Patient was then taken to the fluoroscopy suite. The patient was interviewed and the medial record reviewed. There were no medical, pharmacologic, radiographic, or other structural contraindications to attempting fluoroscopically guided lumbar epidural steroid injection. Risks and expected side effects as well as potential benefits of the procedure were reviewed and voiced concerns expressed. The patient consent form was signed and witnessed. Standard patient time-out procedure was performed. The patient was placed in the prone position on the fluoroscopy table and automated blood pressure cuff and pulse oximeter applied. The skin entry point for entering/approaching the epidural space at the L5-S1 interspace and marked. Following thorough chlorhexadine preparation of the skin and draping and 1% lidocaine infiltration of the skin entry point and subcutaneous tissues, a 18 gauge Touhy needle was placed under fluoroscopic guidance and with loss of resistance technique into the epidural space. Needle tip placement and depth were aided and confirmed by fluoroscopy. There was no paresthesia or return of blood or CSF through the needle. 1 cc's of Omnipaque 240 was injected with clear epidural spread confirmed with fluoroscopy. 80mg depomedrol was injected. There was not any unusual discomfort expressed by Bianka Leonardo. Patient's vital signs were stable throughout the procedure and were as recorded in nursing records. Follow up plans and appointments were discussed with patient. Post procedure instruction was given as documented in nursing records and having met discharge criteria and was discharged from the [facility]. COMMENTS: If this procedure allows for at least 50% improvement in pain and/or functional improvement, it can be completed up to 4 times per 12 months. Carlo Levy DO, MPH [facility]-Pain Management [facility] for [facility] Management
== END 2022-11-22 11:43 | disposition home or self-care (01) ==
PROVIDERS: PCP Nurse Practitioner; Visit Provider Preventive Medicine Occupational Medicine
DX: M54.17 Radiculopathy, lumbosacral region (principal)
CPT/HCPCS: 62323; 72100; J1040; Q9967

== ENCOUNTER 2022-11-29 01:45 | Outpatient (CLI) | payer OTHER, SELFPAY | END 2022-11-29 02:05 | PROVIDERS: PCP Nurse Practitioner; Visit Provider Nurse Practitioner Women's Health | DX: Z12.31 Encounter for screening mammogram for malignant neoplasm of breast (principal) | CPT/HCPCS: 77063; 77067 ==

== ENCOUNTER 2023-01-30 11:36 | Outpatient (REF) | payer OTHER, SELFPAY ==
[2023-01-31 12:23] LABS: Chlamydia Result Negative (Negative); GC Result Negative (Negative)
== END 2023-01-30 11:37 | disposition home or self-care (01) ==
LOC: LBN 11:36
PROVIDERS: PCP Nurse Practitioner; Visit Provider Nurse Practitioner Women's Health
DX: Z11.3 Encounter for screening for infections with a predominantly sexual mode of transmission (principal)
CPT/HCPCS: 87491; 87591

== ENCOUNTER 2023-02-01 01:12 | Outpatient (CLI) | payer OTHER, SELFPAY ==
[2023-02-02 10:45] LABS: Hepatitis B Surface Ag Negative (Negative)
[2023-02-02 11:15] LABS: Hepatitis C Ab w Rflx HCV PCR Negative (Negative)
[2023-02-02 11:24] LABS: HIV-1/2 Ag & Ab Screen Negative (Negative)
[2023-02-03 14:19] LABS: Syphilis IgG w/Reflex Nonreactive (Nonreactive)
== END 2023-02-01 01:13 | disposition home or self-care (01) ==
LOC: LBO 01:12
PROVIDERS: PCP Nurse Practitioner; Visit Provider Nurse Practitioner Women's Health
DX: Z11.3 Encounter for screening for infections with a predominantly sexual mode of transmission (principal)
CPT/HCPCS: 36415; 86803; 87340; 87389; 86780

== ENCOUNTER → 2023-05-28 04:00 | Outpatient (CLI) | payer OTHER, SELFPAY ==
--- NOTE | 2023-05-28 | DI.MRI_ITS ---
Exam(s) MR LUMBAR SPINE WO EXAM: MR LUMBAR SPINE WO CLINICAL HISTORY: LUMBAR STENOSIS, M48.061, SCIATIC PAIN, M54.30, SPONDYLOLISTHESIS, M43.16. TECHNIQUE: Multiplanar multisequence MRI of the Lumbar spine was performed. COMPARISON: CR,XR XR HUMERUS RT from 06/17/2022 MR MR LUMBAR SPINE WO from 09/13/2022 FINDINGS: Bones: The last intervertebral disc space is designated the L5/S1 level for the numbering purpose of this ex amination. The vertebral body heights are well maintained. Alignment: Mild degenerative levoscoliosis. The marrow signal characteristics are unremarkable. Hemangioma S1. Cord: The conus tip ends at the T12 level. It is of normal size and signal intensity. T12-L1: No focal disc herniation is present. No central spinal canal stenosis.No neural foraminal st enosis. L1-2: No focal disc herniation is present. No central spinal canal stenosis.No neural foraminal sten osis. L2-3: Minimal disc bulging. No focal disc herniation is present. No central spinal canal stenosi s.No neural foraminal stenosis. L3-4: Mild disc bulging and mild loss of disc height, eccentric toward the right.. No change from pr ior.No focal disc herniation is present. Facet degenerative changes. Mild right neural foraminal na rrowing. Slight central canal stenosis, unchanged. L4-5:Mild loss of disc height which is eccentric toward the right.. Are disc bulging and endplate os teophytes, greater on the right. Facet degenerative changes and ligamentous hypertrophy cause severe central canal stenosis. No focal disc herniation is present. Moderate right neural foraminal narro wing. Findings stable from prior. L5-S1: Mild disc bulging eccentric toward the left. Facet degenerative changes, greater on the left. Severe left neural foraminal narrowing. No significant central canal stenosis.No focal disc hernia tion is present. The visualized SI joints and sacrum are well maintained. Soft tissues: The paraspinal soft tissues are unremarkable. IMPRESSION: Stable degenerative disc changes and facet degenerative changes, most severe at L4-5 where there is s evere stenosis and moderate neural foraminal narrowing. Severe left neural foraminal narrowing at L5-S1. DATA REPOSITORY:
== END ==
PROVIDERS: PCP Nurse Practitioner; Visit Provider Physician Assistant Surgical
DX: M51.36 Other intervertebral disc degeneration, lumbar region (principal); M99.63 Osseous and subluxation stenosis of intervertebral foramina of lumbar region
CPT/HCPCS: 72148

== ENCOUNTER 2023-05-30 17:00 | Outpatient (CLI) | payer OTHER, SELFPAY ==
--- NOTE | 2023-05-30 06:00 | DI.RAD_ITS ---
Exam(s) XR PAIN CLINIC LUMBAR SP 2V EXAM: XR PAIN CLINIC LUMBAR SP 2V CLINICAL HISTORY: Dx: Lumbar Radiculopathy TECHNIQUE: 2D and realtime digital imaging was performed. CONTRAST MATERIAL: Refer to procedure report. COMPARISON: No exams were available for comparison FINDINGS: Fluoroscopy was provided for Dr. Levy during the performance of a pain management procedure. Please refer to the procedure report for complete details. Ka,r=7.2 mGy IMPRESSION:
[2023-05-30 17:29] VITALS: BP 118/75; PULSE 71; RESP 16; TEMP 36.7; O2SAT 95
--- NOTE | 2023-05-30 17:57 | PDOC.PAIN ---
Date of service: 05/30/23 Time of Service: 17:57 Pain Managment Procedure Note Procedure Note Procedure Note: PROCEDURE NOTE LUMBAR EPIDURAL STEROID INJECTION Date of Service: May 30, 2023 Patient:?Bianka Leonardo? Provider: Carlo Levy DO, MPH Bianka Leonardo has been referred to the [facility] for a lumbar epidural steroid injection. Pre-operative diagnosis: Lumbosacral Radiculopathy Post-operative diagnosis: Same Pre-Procedure Pain: VAS= 6/10 Comments: She had >60% relief for >4 months from her last lumbar epidural steroid injection on 11/23/2022. I did review her 05/28/2023 lumbar spine MRI with her. She has severe central canal stenosis at L4-L5 and that is why I change the entry site to the L4-L5 interspace for this procedure. Bianka was interviewed and the medical record was reviewed.? There were no medical, pharmacologic, radiographic or other structural contraindications to attempting fluoroscopically guided Lumbar epidural steroid injection.? Risks, potential side effects, indications, and potential benefits of the procedure were reviewed with Bianka.? Questions and concerns were addressed.? After it was clear that Bianka was fully informed about the procedure, the printed consent form was signed by the patient and myself.? Bianka was placed in the prone position on the fluoroscopy table and automated blood pressure cuff and pulse oximeter applied. The skin entry point for entering/approaching the epidural space for the lumbar epidural steroid injection was marked. Following thorough chlorhexadine preparation of the skin and draping and 1% lidocaine infiltration of the skin entry point and subcutaneous tissues, an 18 gauge Touhy needle was placed and advanced under fluoroscopic guidance and with loss of resistance technique into the L4-L5 epidural space. Needle tip placement and depth were aided and confirmed by fluoroscopy. There was no paresthesia or return of blood or CSF through the needle. 1 mls of Omnipaque 240 was injected with clear epidural spread confirmed with fluoroscopy. 80 mg of Depo-Medrol was? injected. This was followed by 1 ml of preservative-free normal saline to flush the steroid out of the needle. There was no unusual discomfort expressed by Bianka. The needle was withdrawn without difficulty. (49 mls of Omnipaque was wasted) Bianka was observed and was without hemodynamic, neurologic, or allergic reactions.? Fluoroscopic images were digitally archived. Bianka's vital signs were stable throughout the procedure and were as recorded in nursing records. Follow up plans and appointments were discussed with Bianka. Post procedure instruction was given as documented in nursing records and having met discharge criteria Bianka was discharged from the [facility]. COMMENTS: No apparent complications. Post-procedure pain: VAS= 0/10. Bianka to contact [facility] as needed. If at least 50% improvement in pain and/or function for at least 3 months is achieved, this procedure can be repeated. I personally performed this entire procedure. CARLO LEVY DO, MPH ABPMR-subspecialty board certification in Pain Medicine [facility]
[2023-05-30 17:59] VITALS: BP 111/63; PULSE 71; RESP 12; O2SAT 98
[2023-05-30] MEDS: Omnipaque 240 MG/ML 50 ML BTL IJ (18:01)
[2023-05-30] MEDS: methylPREDNISolone ACETATE 80 MG/ML VIAL IJ (18:01)
== END 2023-05-30 17:01 | disposition home or self-care (01) ==
LOC: PC 17:01
PROVIDERS: PCP Nurse Practitioner; Visit Provider Preventive Medicine Occupational Medicine
DX: M54.17 Radiculopathy, lumbosacral region (principal)
CPT/HCPCS: 62323; 72100; J1040; Q9967

== ENCOUNTER 2023-08-22 12:43 | Emergency (ER) | payer OTHER, SELFPAY ==
[2023-08-22 12:55] VITALS: O2SAT 97
[2023-08-22 12:56] VITALS: BP 160/103; PULSE 91; RESP 18; TEMP 36.7; O2SAT 98
--- NOTE | 2023-08-22 13:11 | ED.GENADUL_ITS ---
HPI General Stated Complaint: Nk/Back Pain ANTHONY: 3 Date/Time Provider Initiated Documentation: 08/22/23 13:11. HPI Narrative: MDM This is an overall very well-appearing normothermic and not tachycardic 53-year-old ceurr-tixj-hdxzejuy female with left upper extremity numbness in a C6 distribution following chiropractic manipulation concerning for spinal cord impingement versus cervical arterial dissection for which patient will undergo MRI and MRA. No pain out of proportion to suggest necrotizing soft tissue infection. Left hand warm well-perfused and patient has no history of cervical ribs so I am not suspicious for thoracic outlet syndrome. Furthermore no color changes in left upper extremity. No erythema to suggest cellulitis. No fluctuance to suggest abscess. No history of recent falls nor shortness of breath so doubt pneumothorax. No abdominal pain nor vomiting so I doubt referred pain. No history of recent PICC lines nor IV drug use so doubt upper extremity DVT. No history of trauma to left upper extremity so we will defer plain films at this point. Patient does not have a history of malignancy and does not appear plethoric so I am not suspicious for SVC syndrome. Given history of lumbar radiculopathy with L4-L5 spinal stenosis will obtain MRI. To assess for cervical arterial dissection will obtain MR angiogram the patient has no obvious cranial nerve deficits and no bruits. 1:55 PM CBC lacks anemia thrombocytopenia and leukocytosis. Basic metabolic panel showing very mild hyperglycemia but normal bicarbonate and no anion gap??not consistent with DKA. No MC. 3:21 PM Patient off to MRI. Pain improved following ketorolac. Will sign patient out to oncoming evening provider. Chronic conditions affecting the care of the patient: Spinal stenosis lumbar radiculopathy History obtained from an outside historian: N/A [place] [facility] [place] [facility] [place] Medications: Ketorolac Social determinants of health affecting disposition: N/A Management discussed with: Dickson Dominguez physicians pediatric assistant Treatment/interventions considered: N/A Response to therapies provided: Improved pain following ketorolac HPI This is a 53-year-old rmvxe-roog-mfwnzmow female with a history of lumbar radiculopathy and spinal stenosis arriving to the emergency department via private vehicle in the setting of left arm pain and numbness. Patient reports that her symptoms began yesterday. 3 days ago she woke up and had discomfort in the left side of her neck. She reported that she felt as if she slept wrong on it. Yesterday she went to the chiropractor and had adjustments made to her neck and she had worsening pain as a result. She describes her discomfort as a burning sensation. She says the pain travels from the left side of her neck down along her biceps into the top of her left thumb. No color changes noted in her hand. She is due for lumbar spinal surgery in 3 weeks in the setting of lumbar spinal stenosis. She took prednisone and tramadol and this did not improve her symptoms. She has had no weakness. No recent upper extremity PEs. Patient is not an IV drug user. No midline cervical spinal tenderness. Exam General: Well-appearing in no acute distress speaking in complete sentences. Head: Normocephalic, atraumatic. Eye:[Pupils equal, round reactive to light.] Extraocular eye movements intact. No conjunctival injection. No scleral icterus. Ear, nose, mouth, throat: Grossly normal inspection. Normal voice, handling secretions normally. Neck: Trachea midline. No bruits. No rash to neck. Cardiovascular: Well-perfused distal extremities. Respiratory: Nonlabored respiration. Gastrointestinal: Nondistended abdomen. Musculoskeletal: No edema. Moving all 4 extremities spontaneously. Left upper extremity with intact motor function into the radial, median, and ulnar nerve distributions. 2+ left radial pulse. Decreased sensation in a C6 left upper extremity distribution. No rash to left upper extremity. Skin: Normal for age and race, grossly normal temperature and turgor. No acute rash. Neurologic: Alert and appropriate, no apparent acute deficits. Cranial nerves II through XII intact grossly.GCS 15. Psychiatric: Mood and manner are appropriate. Grooming and personal hygiene are appropriate. Related Data Home Medications Medication Instructions Recorded Confirmed fexofenadine 180 mg tablet 180 mg PO DAILY 09/25/19 08/22/23 fluticasone propionate 50 See Rx Instructions intranasal 09/25/19 08/22/23 mcg/actuation nasal DAILY spray,suspension (Flonase Allergy Relief) diclofenac sodium 1 % topical gel 2 gm topical QID 09/30/19 08/22/23 (Voltaren) magnesium oxide 500 mg capsule 500 mg PO DAILY 09/30/19 08/22/23 red yeast rice 600 mg capsule 600 mg PO BID 12/08/20 08/22/23 estradiol 1 mg tablet 1 mg PO DAILY #90 tabs 09/20/22 08/22/23 progesterone micronized 100 mg 100 mg PO DAILY #90 caps 09/20/22 08/22/23 capsule (Prometrium) celecoxib 200 mg capsule (Celebrex) 200 mg PO BID PRN pain #180 caps 11/21/22 08/22/23 methocarbamol 750 mg tablet 750 mg PO TID PRN back pain #90 12/26/22 08/22/23 tabs venlafaxine 150 mg 150 mg PO DAILY #90 caps 05/21/23 08/22/23 capsule,extended release 24 hr (Effexor XR) zxudoacvfg-detrpdupnffef-biiagibh 2 cap PO Q4H PRN pain #30 caps 05/28/23 08/22/23 50 mg-300 mg-40 mg capsule propranolol 40 mg tablet 20 mg (1/2 x 40 mg) PO BID #90 tabs 06/20/23 08/22/23 bupropion HCl 150 mg 24 hr tablet, 150 mg PO DAILY #30 tabs 06/27/23 08/22/23 extended release (Wellbutrin XL) pantoprazole 40 mg tablet,delayed 40 mg PO DAILY #90 tabs 08/14/23 08/22/23 release zolpidem 12.5 mg tablet,extended 12.5 mg PO QHS PRN insomnia #90 08/14/23 08/22/23 release,multiphase (Ambien CR) tabs ketorolac 10 mg tablet mg 08/22/23 lidocaine 5 % topical patch patch 08/22/23 Previous Rx's Medication Instructions Recorded estradiol 1 mg tablet 1 mg PO DAILY #90 tabs 09/20/22 progesterone micronized 100 mg 100 mg PO DAILY #90 caps 09/20/22 capsule (Prometrium) celecoxib 200 mg capsule (Celebrex) 200 mg PO BID PRN pain #180 caps 11/21/22 methocarbamol 750 mg tablet 750 mg PO TID PRN back pain #90 12/26/22 tabs venlafaxine 150 mg 150 mg PO DAILY #90 caps 05/21/23 capsule,extended release 24 hr (Effexor XR) rrqzqgnwda-kqnytbxgoyhfg-ysbfkvzk 2 cap PO Q4H PRN pain #30 caps 05/28/23 50 mg-300 mg-40 mg capsule propranolol 40 mg tablet 20 mg (1/2 x 40 mg) PO BID #90 tabs 06/20/23 bupropion HCl 150 mg 24 hr tablet, 150 mg PO DAILY #30 tabs 06/27/23 extended release (Wellbutrin XL) pantoprazole 40 mg tablet,delayed 40 mg PO DAILY #90 tabs 08/14/23 release zolpidem 12.5 mg tablet,extended 12.5 mg PO QHS PRN insomnia #90 08/14/23 release,multiphase (Ambien CR) tabs Allergies Allergy/AdvReac Type Severity Reaction Status Date / Time rizatriptan [From Maxalt] Allergy Severe Verified 08/22/23 13:04 sumatriptan [From Imitrex] Allergy Severe Verified 08/22/23 13:04 cat dander Allergy Verified 08/22/23 13:04 kiwi Allergy Anaphylaxsi Verified 08/22/23 13:04 s metronidazole [From Flagyl] Allergy Verified 08/22/23 13:04 omeprazole [From Prilosec] AdvReac Intermediate Verified 08/22/23 13:04 codeine AdvReac Nausea and Verified 06/27/23 15:56 Vomiting esomeprazole [From Nexium] AdvReac Psychologically Verified 08/22/23 13:04 Crazy hydrocodone AdvReac Verified 08/22/23 13:04 latex AdvReac Verified 08/22/23 13:04 meperidine [From Demerol] AdvReac Nausea and Verified 08/22/23 13:04 Vomiting montelukast [From Singulair] AdvReac Verified 08/22/23 13:04 nickel AdvReac Verified 08/22/23 13:04 wool AdvReac Verified 08/22/23 13:04 dyes Allergy Uncoded 08/22/23 13:04 environmental Allergy Uncoded 08/22/23 13:04 perfumes Allergy Uncoded 08/22/23 13:04 PO NSAIDS AdvReac Intermediate Uncoded 08/22/23 13:04 PFSH All Active Problems Lumbar radiculopathy (Acute) Hormone replacement therapy (Acute) For management of severe hot flashes Gastritis (Acute) Esophageal reflux (Chronic) Persistent insomnia (Acute) Migraine headache (Chronic) Generalized anxiety disorder (Acute) Dysthymia (Acute) Encounter to establish care (Acute) Spinal stenosis at L4-L5 level (Acute) 01/20/20[facility] [place] [facility]; sacroiliac joint dysfunction, spondylosis of lumbar region without myelopathy or radiculopathy. Liv Freeman MD Insomnia (Acute) Rhytides (Acute) 06/28/20 Dr. Alvarado Right ovarian cyst (Acute) 2020: decrease in size from 6cm to 3.4cm Elevated hemoglobin A1c (Acute) Hyperlipidemia (Acute) Abnormal blood cell count (Acute) Sacroiliac joint dysfunction of left side (Acute) HAV (hallux abducto valgus) (Acute 08/31/21) Right foot Pronation of right foot (Acute 08/31/21) Encounter for screening for other viral diseases (Acute) Allergic rhinitis (Acute) Chronic facial pain (Acute) Traumatic tear of right rotator cuff (Acute 06/17/22) Medical History Acute appendicitis without mention of peritonitis COVID 05/19/22 Depression SLAP lesion of right shoulder Surgical History History of esophagogastroduodenoscopy (EGD) History of laparoscopic appendectomy (2007) History of loop electrical excision procedure (LEEP) [place] 1-2 (2002) Hx of colonoscopy Family History (Updated 05/30/23 @ 17:28 by Mel Acharya) Brother Substance abuse Anxiety Bipolar disorder Depression Hypertension Father Anxiety Depression Heart disease Hypertension Sister Anxiety Depression Maternal Grandmother Anxiety Paternal Grandmother Anxiety Mother Cancer Maternal Grandfather Hypertension Paternal Grandfather Hypertension Social History (Updated 12/26/22 @ 15:27 by Barb Snow LPN) Smoking/Tobacco Use Status: Never Second Hand Exposure: No Smoking risk assessment performed?: Yes Alcohol Intake: current Alcohol type: wine Drug use: Never Substance use type: does not use Counseling given: No Adopted: No Caregiver/Support person: No Foster care: No Household members: significant other Housing: house Number of Children: 0 Communication Needs: None Education Level: other Details: MD Do you need help understanding health information?: Never current occupation: General Surgeon, [employer] Pets and animals: Yes Pets and animals: cat(s) Sexually active: Yes Do you think of yourself as: straight/heterosexual Current gender identity: female What is your relationship status?: living with partner How often do you talk on the phone with friends or family?: three or more times per week How often do you get together with friends or relatives?: once per week Do you belong to any clubs or organized social groups?: no Panel score (0-1 are the most socially isolated patients): 2 What type of physical activity do you participate in: weight lifting, other Details: Cardio and yoga Duration: 30-45 minutes/day Frequency: 3-4 times per week Caridad/Yarsanism: Pentecostal Special caridad needs: No Seatbelt use: always Helmet use: Yes Helmet use: always Drive intox or ride w/intox cdl truck driver: No Working smoke detector in home: Yes Carbon monox detector in home: Yes Do you feel safe at home: Yes Do you feel safe in your relationship?: Yes Female Reproductive History Menstrual control method: permanent sterilization (parnter with vasectomy) History History 0 Para Hx # Term Pregnancies Multiple births Hx # Pregnancies Ectopic pregnancies AB induced Hx Number of Living Children AB spontaneous Course Vital Signs Vital signs: Vital Signs Temperature 36.7 C 08/22/23 12:56 Pulse 91 H 08/22/23 12:56 Respiratory Rate 18 08/22/23 12:56 Blood Pressure 160/103 H 08/22/23 12:56 Pulse Oximetry 98 08/22/23 12:56 Temperature 36.7 C 08/22/23 12:56 Temperature Source Oral 08/22/23 12:56 Pulse 91 H 08/22/23 12:56 Respiratory Rate 18 08/22/23 12:56 Respiratory Effort Normal, Non-Labored 08/22/23 13:01 Blood Pressure 160/103 H 08/22/23 12:56 Pulse Oximetry 98 08/22/23 12:56 Medical Decision Making Quality:SDOH Health Related Social Needs: No Data to Display Discharge Plan Discharge Details Chief Complaint: Nk/Back Pain Primary Care Provider: Desire Julian ED Provider: Dontrell Britt Home Meds and New Rx's Prescriptions: No Action magnesium oxide 500 mg capsule 500 mg PO DAILY diclofenac sodium [Voltaren] 1 % gel 2 gm TP QID red yeast rice 600 mg capsule 600 mg PO BID Rx Instructions: give with meal/snack celecoxib [Celebrex] 200 mg capsule 200 mg PO BID PRN (Reason: pain) Qty: 180 3RF bupropion HCl [Wellbutrin XL] 150 mg tablet extended release 24 hr 150 mg PO DAILY Qty: 30 3RF progesterone micronized [Prometrium] 100 mg capsule 100 mg PO DAILY Qty: 90 4RF estradiol 1 mg tablet 1 mg PO DAILY Qty: 90 4RF methocarbamol 750 mg tablet 750 mg PO TID PRN (Reason: back pain) Qty: 90 4RF fexofenadine 180 mg tablet 180 mg PO DAILY fluticasone propionate [Flonase Allergy Relief] 50 mcg/actuation spray,suspension See Rx Instructions AMELIA DAILY Rx Instructions: 1-2 sprays intranasal daily; venlafaxine [Effexor XR] 150 mg capsule,extended release 24hr 150 mg PO DAILY Qty: 90 3RF pvdxsnltaa-ibvuutosfoofu-pouh 50-300-40 mg capsule 2 cap PO Q4H PRN (Reason: pain) Qty: 30 0RF propranolol 40 mg tablet 20 mg PO BID Qty: 90 3RF pantoprazole 40 mg tablet,delayed release (DR/EC) 40 mg PO DAILY Qty: 90 3RF zolpidem [Ambien CR] 12.5 mg tablet,ext release multiphase 12.5 mg PO QHS PRN (Reason: insomnia) Qty: 90 1RF Hold Instructions: Home Medication placed on hold at Doctor's office ketorolac 10 mg tablet lidocaine 5 % adhesive patch,medicated
--- NOTE | 2023-08-22 13:15 | DI.MRI_ITS ---
Exam(s) MR CERVICAL SPINE WO EXAM: MR CERVICAL SPINE WO CLINICAL HISTORY: Left C6 numbness pain TECHNIQUE: Multiplanar multisequence MRI of the cervical spine was performed without intravenous con trast. COMPARISON: No exams were available for comparison FINDINGS: BONES: Vertebral body heights are maintained. Alignment is normal. Bone marrow signal intensity is wi thin normal limits. Hemangioma in C7. CERVICAL CORD: Craniovertebral junction is unremarkable. The cervical cord is normal size and signal intensity. SOFT TISSUES: Unremarkable. C2-3: No disc herniation or bulge is identified. No evidence of neural foraminal narrowing. No signi ficant central canal stenosis. C3-4: Small endplate osteophytes and minimal disc bulging. No evidence of neural foraminal narrowing . No significant central canal stenosis. C4-5: Minimal endplate osteophytes. No evidence of neural foraminal narrowing. No significant centra l canal stenosis. C5-6: Small endplate osteophytes and mild diffuse disc bulging. Superimposed left lateral disc herni ation extending into the left neural foramen causing significant narrowing and nerve impingement..No right neural foraminal narrowing. Mild effacement of the anterior CSF space. Central canal stenosis. C6-7: Mild loss of disc height. Small endplate osteophytes causing khxs-hn-ourhjfpw bilateral neural foraminal narrowing. No significant central canal stenosis. C7-T1: No disc herniation or bulge is identified. No evidence of neural foraminal narrowing. No signi ficant central canal stenosis. IMPRESSION: Left foraminal disc herniation at C5-6 causing significant neural foraminal narrowing and nerve root impingement. Vexc-dz-orsxoxvj bilateral neural foraminal narrowing secondary to degenerative changes at C6-7. DATA REPOSITORY:
--- NOTE | 2023-08-22 13:15 | DI.MRI_ITS ---
Exam(s) MR ANGIO NECK WO EXAM: MR ANGIO NECK WO CLINICAL HISTORY: Left neck pain chiropractor manipulation. TECHNIQUE: 2D and 3D xokw-ic-bbmgxi MRA of the Neck was performed. COMPARISON: No exams were available for comparison FINDINGS: Common Carotid: Right: No dissection, occlusion or significant stenosis. Left: No dissection, occlusion or significant stenosis. External Carotid: Right: No evidence of occlusion or significant stenosis. Left: No evidence of occlusion or significant stenosis. Internal Carotid: Right: No dissection, occlusion or significant stenosis. Left: No dissection, occlusion or significant stenosis. Vertebral Artery: Right: No dissection, occlusion or significant stenosis. Left: No dissection, occlusion or significant stenosis. The visualized paraspinal soft tissues are unremarkable. IMPRESSION: No evidence of dissection, occlusion or significant stenosis. DATA REPOSITORY:
[2023-08-22] MEDS: Ketorolac 15 MG/ML VIAL IVP ×2 (13:27→17:04)
[2023-08-22 13:37] LABS: Abs Immature Grans 0.04 10^3/uL (0.0-0.06); Absolute Basophil Count 0.03 10^3/uL (0.0-0.2); Absolute Eosinophil Count 0.03 10^3/uL (0.0-0.7); Absolute Lymphocyte Count 0.71 10^3/uL (1.2-3.4); Absolute Monocyte Count 0.21 10^3/uL (0.1-0.8); Absolute Neutrophil Count 4.92 10^3/uL (1.2-6.7); Basophils % 0.5; Eosinophils % 0.5; HCT 44.2 % (36.0-46.0); HGB 14.4 g/dL (11.2-15.7); Immature Grans % 0.7; MCH 29.3 pg (27.0-33.0); MCHC 32.6 % (32.0-36.0); MCV 90 fL (80-95); MPV 10.3 fL (8.0-11.0); Monocytes % 3.5; Neutrophils % 82.8; Platelet Count 327 10^3/uL (130-400); RBC 4.91 10^6/uL (3.93-5.22); RDW 12.7 % (11.7-14.6); RDW-SD 41.8 fL; WBC 5.94 10^3/uL (4.4-10.8)
[2023-08-22 13:49] LABS: Anion Gap 8.3 mmol/L (3-11); BUN 18 mg/dL (7-18); CO2 28.7 mmol/L (21.0-32.0); CREATININE 0.9 mg/dL (0.55-1.02); Calcium 9.5 mg/dL (8.5-10.1); Chloride 100 mmol/L (98-107); Estimated GFR 75.97 (mL/min/1.73m2); Glucose 117 mg/dL (74-106); Potassium 3.8 mmol/L (3.5-5.1); Sodium 137 mmol/L (136-145)
--- NOTE | 2023-08-22 15:57 | ED.PROG_ITS ---
Date of service: 08/22/23 Time of Service: 15:57 Medical Decision Making This dictation utilizes [id number] dictation software and may contain unedited grammatical errors. Patient seen in sign-out from Dr. Britt- please see his prior note- 53 y/o F presents to ED today with a chief complaint of worsening L arm radicular symptoms from sleeping in poor posture on L side, seen by chiropractor, now having worsening sensory deficit in L arm C6 distribution, states sensation 75% as good as contralateral arm, denies vertigo/tinnitus/visual changes. Patient has scheduled follow-up for lumbar surgery [place] [facility] [place] with lumbar radiculopathy in history. Patients' medical history: lumbar radicul opathy, GERD, migraine, spinal stenosis at L4/5 level, SI dysfunction L sided, R shoulder rotator cuff tear in remote history. Family and social history: noncontributory. Pertinent exam findings / vital signs include strength 5/5 in L UE, mild sensory deficit L arm C6 distribution, no carotid bruit. Differential / pathologies of concern include cervical radiculopathy, disk herniation, vertebral dissection. Diagnostic studies of: -MRI C-spine wo Contrast, MRA Neck wo Contrast -MRI C-spine shows L foraminal disk herniation at C5/6 -MRA neck no dissection or stenosis of vasculature Interventions of: -ketorlac, started on Dexamethasone, gabapentin outpatient, consults with [facility]. ED Course/Assessment/Plan: 53-year-old female presents to ED with severe left-sided upper extremity radicular symptoms after going to chiropractor, followed by [facility] neuro[facility], received patient in signout from Dr. Britt, MRI of the cervical spine shows significant left lateral disc herniation at the C5-C6 level with foraminal narrowing and nerve impingement but no signs of cord impingement or compression, the patient's physical exam is not consistent with central cord syndrome. [facility] [place] consult as she is followed by Karina broussard so consult was taking quite some time, patient wished to be discharged home to follow-up with her neurosurgeon provider on an outpatient basis, I did start her on dexamethasone as well as gabapentin and ketorolac by her request for neuropathic pain. Refused opiates or other analgesics, recommend continue Tylenol, make contact with [facility] neurosurgery and they will review her images and call her in the morning. Findings not consistent with NV compromise of UE. Disposition of Cervical disc disorder at C5-C6 level with radiculopathy. Patient verbalized understanding of the plan and return to ED criteria and engaged in shared decision making. Medical Records Medical records reviewed: Yes I reviewed the patient's medical records. Imaging Data Radiologic Study: Imaging: MRI Radiologist's impression: EXAM: MR ANGIO NECK WO CLINICAL HISTORY: Left neck pain chiropractor manipulation. TECHNIQUE: 2D and 3D [id number] MRA of the Neck was performed. COMPARISON: No exams were available for comparison FINDINGS: Common Carotid: Right: No dissection, occlusion or significant stenosis. Left: No dissection, occlusion or significant stenosis. External Carotid: Right: No evidence of occlusion or significant stenosis. Left: No evidence of occlusion or significant stenosis. Internal Carotid: Right: No dissection, occlusion or significant stenosis. Left: No dissection, occlusion or significant stenosis. Vertebral Artery: Right: No dissection, occlusion or significant stenosis. Left: No dissection, occlusion or significant stenosis. The visualized paraspinal soft tissues are unremarkable. IMPRESSION: No evidence of dissection, occlusion or significant stenosis. Radiologic Study #2: Imaging: MRI Radiologist's impression: EXAM: MR CERVICAL SPINE WO CLINICAL HISTORY: Left C6 numbness pain TECHNIQUE: Multiplanar multisequence MRI of the cervical spine was performed without intravenous contrast. COMPARISON: No exams were available for comparison FINDINGS: BONES: Vertebral body heights are maintained. Alignment is normal. Bone marrow signal intensity is within normal limits. Hemangioma in C7. CERVICAL CORD: Craniovertebral junction is unremarkable. The cervical cord is normal size and signal intensity. SOFT TISSUES: Unremarkable. C2-3: No disc herniation or bulge is identified. No evidence of neural foraminal narrowing. No significant central canal stenosis. C3-4: Small endplate osteophytes and minimal disc bulging. No evidence of neural foraminal narrowing. No significant central canal stenosis. C4-5: Minimal endplate osteophytes. No evidence of neural foraminal narrowing. No significant central canal stenosis. C5-6: Small endplate osteophytes and mild diffuse disc bulging. Superimposed left lateral disc herniation extending into the left neural foramen causing significant narrowing and nerve impingement..No right neural foraminal narrowing. Mild effacement of the anterior CSF space. Central canal stenosis. C6-7: Mild loss of disc height. Small endplate osteophytes causing xqxx-ik-wzrubkmh bilateral neural foraminal narrowing. No significant central canal stenosis. C7-T1: No disc herniation or bulge is identified. No evidence of neural foraminal narrowing. No significant central canal stenosis. IMPRESSION: Left foraminal disc herniation at C5-6 causing significant neural foraminal narrowing and nerve root impingement. Okny-rh-wgwlobmi bilateral neural foraminal narrowing secondary to degenerative changes at C6-7. Quality:[facility] Related Social Needs: No Data to Display Sign Out Sign Out Data: Sign Out Comment: Hrvdy-qfky-ffaszbmk female with lumbar stenosis now with left C6 numbness and pain. Please follow-up MRI and touch base with [place]surgery [place] [facility] [place] upcoming lumbar spinal surgery scheduled in 3 weeks. Last updated by Dontrell Britt MD at 08/22/23 15:25 Discharge Plan Disposition Patient Disposition: Home Condition: Stable Discharge Details Clinical Impression: Cervical disc disorder at C5-C6 level with radiculopathy Primary Care Provider: Desire Julian ED Provider: Pablo Dominguez Home Meds and New Rx's Prescriptions: New gabapentin 300 mg capsule 300 mg PO TID 21 Days Qty: 63 0RF dexamethasone 6 mg tablet 6 mg PO BID 7 Days Qty: 14 0RF ketorolac 10 mg tablet 10 mg PO QID PRN (Reason: acute pain) 5 Days Qty: 20 0RF Continued magnesium oxide 500 mg capsule 500 mg PO DAILY diclofenac sodium [Voltaren] 1 % gel 2 gm TP QID red yeast rice 600 mg capsule 600 mg PO BID Rx Instructions: give with meal/snack celecoxib [Celebrex] 200 mg capsule 200 mg PO BID PRN (Reason: pain) Qty: 180 3RF bupropion HCl [Wellbutrin XL] 150 mg tablet extended release 24 hr 150 mg PO DAILY Qty: 30 3RF progesterone micronized [Prometrium] 100 mg capsule 100 mg PO DAILY Qty: 90 4RF estradiol 1 mg tablet 1 mg PO DAILY Qty: 90 4RF methocarbamol 750 mg tablet 750 mg PO TID PRN (Reason: back pain) Qty: 90 4RF fexofenadine 180 mg tablet 180 mg PO DAILY fluticasone propionate [Flonase Allergy Relief] 50 mcg/actuation spray,suspension See Rx Instructions AMELIA DAILY Rx Instructions: 1-2 sprays intranasal daily; venlafaxine [Effexor XR] 150 mg capsule,extended release 24hr 150 mg PO DAILY Qty: 90 3RF bgpklizqzt-ddsrwdxlkxnib-pfph 50-300-40 mg capsule 2 cap PO Q4H PRN (Reason: pain) Qty: 30 0RF propranolol 40 mg tablet 20 mg PO BID Qty: 90 3RF pantoprazole 40 mg tablet,delayed release (DR/EC) 40 mg PO DAILY Qty: 90 3RF zolpidem [Ambien CR] 12.5 mg tablet,ext release multiphase 12.5 mg PO QHS PRN (Reason: insomnia) Qty: 90 1RF Hold Instructions: Home Medication placed on hold at Doctor's office ketorolac 10 mg tablet lidocaine 5 % adhesive patch,medicated Discharge Instructions Instructions: Ketorolac (By mouth), Gabapentin (By mouth), Dexamethasone (By mouth), Cervical Disc Herniation (ED) Additional Instructions: You were seen in the emergency department for your left neck and left upper extremity cervical radicular symptoms. There is a left lateral disc herniation and bulging causing some nerve impingement and significant foraminal canal narrowing at the C5-6 level, I have forwarded your MRIs [place] [facility] as well as paged your neurosurgery team for your lumbar surgery that scheduled 3 weeks from now, due to continuity of care [facility] refused consult until we had made contact with the separate neurosurgery team at [facility]. He wished to be discharged while awaiting this consult. We did start medicines including Toradol, this may interact with your celecoxib please hold this medicine while you do 5 days of Toradol. I have also started you on 300 mg of gabapentin 3 times daily as well as given you IV dexamethasone here in the department and started you on 6 mg twice daily, you will need to be tapered off of this dexamethasone over the course of 1 to 2 weeks and please follow-up with your neurosurgery team in regards to how they would like to continue this steroid treatment. Please return to the ER at once for any severe increasing left upper extremity strength or sensory deficits, any dizziness or tinnitus, any vertigo or visual changes. Referrals: [facility] [Outside] (Neuro Surgery) Desire Julian NP [Primary Care Provider] -
[2023-08-22] MEDS: Gabapentin 300 MG CAP PO (17:45)
[2023-08-22] MEDS: Dexamethasone 10 MG/ML VIAL IVP (17:45)
[2023-08-22 17:51] VITALS: O2SAT 99
[2023-08-22 17:52] VITALS: BP 145/131; PULSE 67
[2023-08-22 17:56] VITALS: BP 148/78; PULSE 69; TEMP 36.3; O2SAT 100
[2023-08-22 18:18] VITALS: BP 148/78; PULSE 69; RESP 18; TEMP 36.3; O2SAT 100
== END 2023-08-22 18:01 | disposition home or self-care (01) ==
PROVIDERS: Emergency Medicine; Emergency Provider Physician Assistant; PCP Nurse Practitioner
DX: M50.122 Cervical disc disorder at C5-C6 level with radiculopathy (principal)
CPT/HCPCS: 00123; 70547; 80048; 96374; 96375; 96376; 99284; 72141; 85025; J1100; J1885

== ENCOUNTER 2023-08-23 12:59 | Outpatient (CLI) | payer OTHER, SELFPAY ==
--- NOTE | 2023-08-23 12:45 | DI.RAD_ITS ---
Exam(s) XR PAIN CLINIC CERVICAL SP 2V EXAM: XR PAIN CLINIC CERVICAL SP 2V CLINICAL HISTORY: Dx: Cervical Radiculopathy TECHNIQUE: 2D and realtime digital imaging was performed. CONTRAST MATERIAL: Refer to procedure report. COMPARISON: No exams were available for comparison FINDINGS: Fluoroscopy was provided for Dr. Levy during the performance of a cervical epidural steroid injectio n. Please refer to the procedure report for complete details. Ka,r=5 mGy IMPRESSION:
[2023-08-23 13:05] VITALS: BP 154/72; PULSE 70; RESP 20; TEMP 36.2; O2SAT 99
[2023-08-23 13:54] VITALS: BP 159/98; PULSE 99; RESP 15; O2SAT 96
[2023-08-23] MEDS: Dexamethasone Sod. Phos./Pres-Free 10 MG/ML VIAL IJ (13:57)
[2023-08-23] MEDS: Omnipaque 240 MG/ML 50 ML BTL IJ (13:57)
--- NOTE | 2023-08-23 18:13 | PDOC.PAIN_ITS ---
Date of service: 08/23/23 Time of Service: 13:30 Pain Managment Procedure Note Procedure Note Procedure Note: Procedure Note Cervical Interlaminar Epidural Steroid Injection Date of Service: August 23, 2023 Patient:? Bianka Leonardo? Provider:? Merair Levy DO, MPH Bianka has been referred to the [facility] for cervical epidural steroid injection.? Pre-operative diagnosis: Cervical Radiculopathy Post-operative diagnosis: Same Pre-procedure pain: VAS= 8/10 Comments: She has an acute left C6 radiculopathy. I did review her symptoms and her recent cervical MRI. Neurosurgery recommends this procedure and will operate on her neck in 2 weeks if no or limited improvement. Bianka was interviewed and the medical record was reviewed.? There were no medical, pharmacologic, radiographic or other structural contraindications to attempting fluoroscopically guided cervical interlaminar epidural steroid injection.? Risks, potential side effects, indications, and potential benefits of the procedure were reviewed with Bianka.? Questions and concerns were addressed.? After it was clear that the patient was fully informed about the procedure, the printed consent form was signed by the patient and myself.? Bianka was placed in the prone position on the fluoroscopy table and automated blood pressure cuff as well as pulse oximeter was applied. A standard time-out procedure was performed. The skin entry point for entering the epidural space by a midline C6-C7 interlaminar approach was identified under fluoroscopy and marked.? The skin entry point was thoroughly cleaned with Chlorhexadine preparation and the skin was draped.? Next a mixture of 2 mls of 1% lidocaine was infiltrated into the area of the planned skin entry point and underlying subcutaneous tissues.? Next an 18 gauge Tuohy needle was placed under fluoroscopic guidance and with loss of resistance technique into the epidural space utilizing multiple AP and 55 degree contralateral fluoroscopic views.? Upon correct needle placement and loss of resistance, there were no paresthesia or return of blood or CSF through the needle. Next 1 mls of preservative-free Omnipaque 240 was injected with clear epidural spread in the A/P and oblique views. Next, a solution of 15 mg of preservative-free Dexamethasone was injected. This was followed with 1ml of preservative-free normal saline. No unusual discomfort was expressed by Bianka. The needle was withdrawn without difficulty. (49 mls of Omnipaque and 5 mg of Dexamethasone was wasted) Bianka was observed and was without hemodynamic, neurologic, or allergic reactions.? Fluoroscopic images were digitally archived. Bianka's vital signs were stable throughout the procedure and were as recorded in the doc flowsheet by the nursing staff.? If given, dosages of intravenous drugs for anxiolysis and analgesia were documented in MAR. Follow up plans and appointments were discussed with Bianka.? Post procedure instruction was given as documented in nursing documentation and having met discharge criteria, Bian[facility] the [facility]. A retrospective review of interlaminar cervical ESIs found that approximately two-thirds of patients with symptomatic cervical radiculopathy from disc herniation were able to avoid surgery for up to 1 year with treatment. Success rate was improved with earlier injection (< 100 days from diagnosis). Miguelina EL, Jodie V, Eran L, Kimberlee AN, Librado WOOD. Cervical epidural steroid injections for symptomatic disc herniations. J Spinal Disord Tech. 2006 December;19(3):183-6. ? COMMENTS: No apparent complications. Post-procedure pain: VAS= 3/10. Bianka to contact [facility] as needed. If at least 50% improvement in pain and/or function for at least 3 months is achieved, this procedure can be repeated. I personally completed the entire procedure. MERARI LEVY DO, MPH ABPMR-subspecialty board certification in Pain Medicine [facility] [facility]
== END 2023-08-23 13:00 | disposition home or self-care (01) ==
LOC: PC 12:59
PROVIDERS: PCP Nurse Practitioner; Visit Provider Preventive Medicine Occupational Medicine
DX: M54.12 Radiculopathy, cervical region (principal)
CPT/HCPCS: 123; 62321; 72040; 00123; J1100; Q9967

== ENCOUNTER 2023-09-03 16:14 | Outpatient (CLI) | payer OTHER, SELFPAY ==
--- NOTE | 2023-09-03 16:00 | RT.EKG_ITS ---
APPROVED REPORT Exam: Resting ECG Reason for Exam: Preop evaluation Patient Location: O HR:64 bpm ECG Measurements Heart Rate 64 AXIS MO 126 P 24 QRSd 85 QRS 54 QT 406 T 56 QTc 419 Conclusion Sinus rhythm...normal P axis, V-rate 50- 99 Normal Electrocardiogram I have reviewed and interpreted ECG and agree with software generated interpretation.
== END 2023-09-03 16:15 | disposition home or self-care (01) ==
LOC: DI.KIM 16:14
PROVIDERS: PCP Nurse Practitioner; Visit Provider Emergency Medicine
DX: Z01.818 Encounter for other preprocedural examination (principal)
CPT/HCPCS: 93010

== ENCOUNTER 2023-10-24 13:43 | Outpatient (REF) | payer OTHER, SELFPAY ==
--- NOTE | 2023-10-24 13:10 | PAPFT_PTH ---
PATIENT: Bianka Leonardo LOC: [facility] U#:[id number] AGE/SX: 53/F ROOM: RE10/24/[address]: Sirena Joshi NP : 1970 BED: DIS: 10/24/2023 SPEC #: [id number] RECD: 10/24/23 18:33 STATUS: CODY REEzequiel #: [id number] SHARI: 10/24/23 13:[address]: Sirena Joshi NP DEPT: PENDING SALE TO [facility] Cytology RECD BY: Echo Gordon ENTERED: 10/24/23 18:33 SP TYPE: PAPFT OTHR DR: Desire Julian APRN Tissues: 1 - CX/ENDOCX FOR PAP SMEARS Procedures: PAP THIN PREP/UVM Screening HPV DNA PROBE Comments: [id number]
== END 2023-10-24 13:44 | disposition home or self-care (01) ==
LOC: LBN 13:43
PROVIDERS: PCP Nurse Practitioner; Visit Provider Nurse Practitioner Women's Health
DX: Z12.4 Encounter for screening for malignant neoplasm of cervix (principal); Z11.51 Encounter for screening for human papillomavirus (HPV)
CPT/HCPCS: 88142; 87624

== ENCOUNTER → 2023-12-19 04:32 | Outpatient (CLI) | payer OTHER, SELFPAY ==
--- NOTE | 2023-12-19 14:00 | DI.MAMMO_ITS ---
Exam(s) MAMMO SCREENING EXAM: MAMMO SCREENING CLINICAL HISTORY: screening. TECHNIQUE: Bilateral full field digital CC and MLO mammographic images were obtained with 3D tomosyn thesis and utilizing computer aided detection (CAD). COMPARISON: Prior mammograms were reviewed. FINDINGS: There has been no significant change in the appearance and distribution of the fibroglandular tissue. There are no new spiculated masses nor malignant appearing microcalcification groups. There is no significant architectural distortion nor skin thickening-retraction. IMPRESSION: No radiographic evidence of malignancy. BI-RADS Category 1 - Negative Breast Density - Category B - Scattered areas of fibroglandular density Breast density Category C or D implies that the patient has dense breast tissue. Dense breast tissue can make it harder to find cancer on a mammogram. Dense breast tissue is also associated with an incr eased risk of breast cancer. This information about the result of the mammogram report was provided to the patient to raise their awareness. Use this report when you speak with the patient about their risks for breast cancer, which includes their family history. At that time, you may recommend additional screening tests (Ultrasoun d or MRI) as these tests may add significant information. A negative radiographic report should not delay biopsy if a dominant or clinically suspicious mass is present. Up to ten percent of cancers are not identified on mammography. A negative report may reinforce clinical impression. Adenosis and dense breasts may obscure an underlying neoplasm. False positive reports average 6 to 10%. Patient will receive a letter notifying them of these results.
== END ==
PROVIDERS: PCP Nurse Practitioner; Visit Provider Nurse Practitioner Women's Health
DX: Z12.31 Encounter for screening mammogram for malignant neoplasm of breast (principal)
CPT/HCPCS: 77063; 77067

== ENCOUNTER → 2024-03-26 02:00 | Outpatient (CLI) | payer OTHER, SELFPAY ==
--- NOTE | 2024-03-26 07:00 | DI.MRI_ITS ---
Exam(s) MR UPPER JOINT RT WO EXAM: MR UPPER JOINT RT WO CLINICAL HISTORY: RT SHOULDER pain, limited ROM,SLAP LESION,M25.511,S43.431A,S46.011A TECHNIQUE: Multiplanar multisequence MRI of the shoulder was performed. COMPARISON: CR,XR XR HUMERUS RT from 06/17/2022 CR,XR XR SHOULDER RT COMPLETE 2+V from 06/17/2022 MR MR UPPER JOINT RT WO from 06/19/2022 FINDINGS: Compared to prior MRI scan of 06/19/2022 there has been interval rotator cuff surgery with multiple f astener channels in the humeral head now evident. MARROW:There is no evidence of fracture, Hill-Sachs deformity, nor ominous osseous lesions. No eviden ce of osteomyelitis in the humeral head. GLENOHUMERAL JOINT: Small joint effusion. Prominent fluid noted in the subcoracoid recess with synov ial thickening at this level. No obvious loose intra-articular bodies. No significant osteophytes. There are no degenerative subarticular cysts in the osseous glenoid nor in humeral head. ROTATOR CUFF MECHANISM: AC JOINT/ACROMIUM: There are degenerative changes again noted in the AC joint with degenerative subar ticular cysts on both sides the joint and there is a para-articular ganglia on off the superior aspec t of the joint which measures 6 by 4 by 3 mm. This was not evident on the 2021 study. There is no evidence of os acromiale. Supraspinatus: There is a full-thickness tear of the supraspinatus tendon with fluid signal continuit y between the articular space and the subacromial space. There is some retraction of the musculotend inous junction. The AP measurement of the tear is approximately 1 cm. There is no significant muscl e atrophy Infraspinatus: There is articular side partial thickness tearing, best seen on the sagittal images. There does not appear to be a full-thickness tear of the infraspinatus. No muscle atrophy. Teres Minor: Intact. No evidence of tear nor muscle atrophy. Subscapularis/anterior cuff: Intact. No abnormal signal at the level of the multipennate insertional fibers. No significant tear nor atrophy. BICEPS TENDON: Exhibits normal position within the intertubercular groove. No obvious tear LABRUM: Mild increased signal seen within the superior labrum but doubtful for true tear. Posterior labrum appears intact. Anterior labrum appears intact. Mild irregularity of the inferior labrum not ed. The inferior glenohumeral ligament appears slightly lax. There is fluid in the inferior recess with some synovial thickening at this level but no loose intra-articular bodies. IMPRESSION: 1. Compared to the prior MRI scan of 06/19/2022 there has been interval rotator cuff repair surgery. 2. However, there is presently a full-thickness tear of the supraspinatus tendon and partial-thicknes s tearing of the articular surface of the infraspinatus. There is no muscle atrophy. Anterior cuff- subscapularis appears intact. 3. No obvious biceps tendon tear. No tenosynovitis. 4. There is mild increased signal in the labrum at multiple levels but no prominent labral tearing e vident. 5. There is a small joint effusion with continuity into the subacromial space through the full-thick ness tear. Also fluid and synovial thickening the subcoracoid recess. No obvious loose intra-articul ar bodies evident. DATA REPOSITORY:
== END ==
PROVIDERS: PCP Nurse Practitioner; Visit Provider Nurse Practitioner
DX: M25.511 Pain in right shoulder (principal); S43.431A Superior glenoid labrum lesion of right shoulder, initial encounter; S46.011A Strain of muscle(s) and tendon(s) of the rotator cuff of right shoulder, initial encounter
CPT/HCPCS: 73221

== ENCOUNTER 2024-04-12 07:10 | Emergency (ER) | payer OTHER, SELFPAY ==
--- NOTE | 2024-04-12 07:11 | ED.GENADUL_ITS ---
Discharge Plan Disposition Patient Disposition: Home Discharge Details Clinical Impression: Cellulitis of right thumb Primary Care Provider: Desire Julian ED Provider: Dontrell Britt Home Meds and New Rx's Prescriptions: New cefpodoxime 200 mg tablet 200 mg PO Q12H Qty: 20 0RF Rx Instructions: must administer with a meal/food Continued magnesium oxide 500 mg capsule 500 mg PO DAILY diclofenac sodium [Voltaren] 1 % gel 2 gm TP QID red yeast rice 600 mg capsule 600 mg PO BID Rx Instructions: give with meal/snack progesterone micronized [Prometrium] 100 mg capsule 100 mg PO DAILY Qty: 90 4RF fexofenadine 180 mg tablet 180 mg PO DAILY fluticasone propionate [Flonase Allergy Relief] 50 mcg/actuation spray,suspension See Rx Instructions AMELIA DAILY Rx Instructions: 1-2 sprays intranasal daily; venlafaxine [Effexor XR] 150 mg capsule,extended release 24hr 150 mg PO DAILY Qty: 90 3RF propranolol 40 mg tablet 20 mg PO BID Qty: 90 3RF pantoprazole 40 mg tablet,delayed release (DR/EC) 40 mg PO DAILY Qty: 90 3RF lidocaine 5 % adhesive patch,medicated 1 patch topical DAILY PRN (Reason: pain) Qty: 30 6RF methocarbamol 750 mg tablet 750 mg PO TID PRN (Reason: back pain) Qty: 90 4RF estradiol 1 mg tablet 1 mg PO DAILY Qty: 90 4RF bupropion HCl [Wellbutrin XL] 150 mg tablet extended release 24 hr 150 mg PO DAILY Qty: 90 3RF celecoxib [Celebrex] 200 mg capsule 200 mg PO BID PRN (Reason: pain) Qty: 180 3RF zolpidem [Ambien CR] 12.5 mg tablet,ext release multiphase 12.5 mg PO QHS PRN (Reason: insomnia) Qty: 90 1RF vmceikshuk-gfnoikwtylhrf-tdjz 50-300-40 mg capsule 2 cap PO Q4H PRN (Reason: pain) Qty: 30 0RF Discharge Instructions Instructions: Cellulitis (Skin Infection), Adult ED Additional Instructions: You are seen in the emergency department for your swollen right thumb. You have signs of an early cellulitis for which you are receiving antibiotics. Please rest your thumb for the next 24 to 48 hours. Please return if your swelling worsens if you develop worsening pain fevers chills nausea or vomiting. Discharge Data Discharge Date/Time-TO BE ENTERED AT DEPARTURE: 04/12/24 07:42 HPI General Date/Time Provider Initiated Documentation: 04/12/24 07:11 . HPI Narrative: MDM This is an overall very well-appearing afebrile and not tachycardic [id number] 53-year-old female with erythema and tenderness to right thumb consistent with cellulitis for which she will receive cefpodoxime to facilitate twice daily dosing. No pain out of proportion to suggest necrotizing soft tissue infection. I considered obtaining plain films however the patient had no significant trauma to her right thumb and no limitations in the range of motion to her right thumb by felt that the utility of radiographs were limited. No signs of paronychia. No percussive tenderness to suggest flexor tenosynovitis. No fluctuance to suggest abscess. No significant tenderness nor induration of pulp space to suggest felon. I considered sepsis however the patient was quite well-appearing. She lacks risk factors for MRSA so I did not feel that she required required trimethoprim/sulfamethoxazole or doxycycline. We also discussed whether or not she required fresh water coverage for Aeromonas with ciprofloxacin. Patient has not been recently handling any roses to suggest increased risk for sporotrichosis. No vesicles to suggest herpetic arianna. Given that she had no significant laceration and no prolonged exposure to fresh water I felt that Aeromonas was less likely so I withheld ciprofloxacin at this early juncture. Patient is appropriate for outpatient treatment given that she lacks predictors for treatment failure with no fever at triage no prior cellulitis at the same area and no cellulitis of the wound site. Patient I discussed return indications including any fevers nausea or vomiting that prevented her from taking her oral antibiotics or any worsening pain or swelling. She understood her return indications and was discharged with empiric trial of expectant outpatient management. 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 Patient was reportedly at a gathering with colleagues in which they were kayaking in a [place]. Patient subsequently was saving the flip tops off of soda cans by removing them. She had dipped her hand in the water afterwards. At around 8 PM she noticed some swelling and redness at her right thumb. Earlier in the week as result of some gardening she had a small blister on the ulnar side of her right thumb which had nearly healed. She denies any falls in her thumb. She has no limitations in the range of motion in her thumb. She denies fevers chills nausea or vomiting. Exam General: Well-appearing in no acute distress speaking in complete sentences. Head: Normocephalic, atraumatic. Eye: Extraocular eye movements intact. No conjunctival injection. No scleral icterus. Ear, nose, mouth, throat: Grossly normal inspection. Normal voice, handling secretions normally. Neck: Trachea midline. Cardiovascular: Well-perfused distal extremities. Respiratory: Nonlabored respiration. Gastrointestinal: Nondistended abdomen. Musculoskeletal: Right hand warm well-perfused. 2+ radial pulse. Cap refill less than 2 seconds in the right fingertips. Right thumb with full range of motion. On the radial aspect of the right thumb adjacent to the IP joint there is erythema that extends around to the volar aspect of the right thumb. No fluctuance. Full range of motion in right thumb across the IP joint and on thumb abduction and adduction flexion and extension. No signs of flexor tenosynovitis given no fusiform swelling and no pain along the flexor tendon sheath with percussion. No signs of felon based on no tenderness induration of the pulp space of the right thumb. The distal pulp space is not markedly tender. Skin: Normal for age and race, grossly normal temperature and turgor. No acute rash. Neurologic: Alert and appropriate, no apparent acute deficits. Psychiatric: Mood and manner are appropriate. Grooming and personal hygiene are appropriate. Related Data Home Medications ?Medication ?Instructions ?Recorded ?Confirmed fexofenadine 180 mg tablet 180 mg PO DAILY 09/25/19 04/04/24 fluticasone propionate 50 See Rx Instructions intranasal 09/25/19 04/04/24 mcg/actuation nasal DAILY spray,suspension (Flonase Allergy Relief) diclofenac sodium 1 % topical gel 2 gm topical QID 09/30/19 04/04/24 (Voltaren) magnesium oxide 500 mg capsule 500 mg PO DAILY 09/30/19 04/04/24 red yeast rice 600 mg capsule 600 mg PO BID 12/08/20 04/04/24 venlafaxine 150 mg 150 mg PO DAILY #90 caps 05/21/23 04/04/24 capsule,extended release 24 hr (Effexor XR) propranolol 40 mg tablet 20 mg (1/2 x 40 mg) PO BID #90 tabs 06/20/23 04/04/24 pantoprazole 40 mg tablet,delayed 40 mg PO DAILY #90 tabs 08/14/23 04/04/24 release lidocaine 5 % topical patch 1 patch topical DAILY PRN pain #30 08/27/23 04/04/24 ea methocarbamol 750 mg tablet 750 mg PO TID PRN back pain #90 09/17/23 04/04/24 tabs estradiol 1 mg tablet 1 mg PO DAILY #90 tabs 10/05/23 04/04/24 progesterone micronized 100 mg 100 mg PO DAILY #90 caps 10/24/23 04/04/24 capsule (Prometrium) bupropion HCl 150 mg 24 hr tablet, 150 mg PO DAILY #90 tabs 10/25/23 04/04/24 extended release (Wellbutrin XL) celecoxib 200 mg capsule (Celebrex) 200 mg PO BID PRN pain #180 caps 12/24/23 04/04/24 zolpidem 12.5 mg tablet,extended 12.5 mg PO QHS PRN insomnia #90 02/12/24 04/04/24 release,multiphase (Ambien CR) tabs kdtnesfdyz-tobucthyodfiv-wbajjyzo 2 cap PO Q4H PRN pain #30 caps 04/01/24 04/04/24 50 mg-300 mg-40 mg capsule cefpodoxime 200 mg tablet 200 mg PO Q12H #20 tabs 04/12/24 Previous Rx's ?Medication ?Instructions ?Recorded venlafaxine 150 mg 150 mg PO DAILY #90 caps 05/21/23 capsule,extended release 24 hr (Effexor XR) propranolol 40 mg tablet 20 mg (1/2 x 40 mg) PO BID #90 tabs 06/20/23 pantoprazole 40 mg tablet,delayed 40 mg PO DAILY #90 tabs 08/14/23 release lidocaine 5 % topical patch 1 patch topical DAILY PRN pain #30 08/27/23 ea methocarbamol 750 mg tablet 750 mg PO TID PRN back pain #90 09/17/23 tabs estradiol 1 mg tablet 1 mg PO DAILY #90 tabs 10/05/23 progesterone micronized 100 mg 100 mg PO DAILY #90 caps 10/24/23 capsule (Prometrium) bupropion HCl 150 mg 24 hr tablet, 150 mg PO DAILY #90 tabs 10/25/23 extended release (Wellbutrin XL) celecoxib 200 mg capsule (Celebrex) 200 mg PO BID PRN pain #180 caps 12/24/23 zolpidem 12.5 mg tablet,extended 12.5 mg PO QHS PRN insomnia #90 02/12/24 release,multiphase (Ambien CR) tabs vwkafdcvpk-otnpjppviecbc-cniyamig 2 cap PO Q4H PRN pain #30 caps 04/01/24 50 mg-300 mg-40 mg capsule cefpodoxime 200 mg tablet 200 mg PO Q12H #20 tabs 04/12/24 Allergies Allergy/AdvReac Type Severity Reaction Status Date / Time rizatriptan (From Maxalt) Allergy Severe Other (See Verified 01/01/24 16:28 Comment) sumatriptan (From Imitrex) Allergy Severe other Verified 01/01/24 16:28 cat dander Allergy other Verified 01/01/24 16:28 kiwi Allergy Anaphylaxsi Verified 01/01/24 16:28 s metronidazole (From Flagyl) Allergy other Verified 01/01/24 16:28 omeprazole (From Prilosec) AdvReac Intermediate other Verified 01/01/24 16:28 codeine AdvReac Nausea and Verified 01/01/24 16:28 Vomiting esomeprazole (From Nexium) AdvReac Psychologically Verified 01/01/24 16:28 Crazy hydrocodone AdvReac other Verified 01/01/24 16:28 latex AdvReac other Verified 01/01/24 16:28 meperidine (From Demerol) AdvReac Nausea and Verified 01/01/24 16:28 Vomiting montelukast (From Singulair) AdvReac other Verified 01/01/24 16:28 nickel AdvReac other Verified 01/01/24 16:28 wool AdvReac other Verified 01/01/24 16:28 dyes Allergy other Uncoded 01/01/24 16:28 environmental Allergy Other (See Uncoded 01/01/24 16:28 Comment) perfumes Allergy other Uncoded 01/01/24 16:28 PO NSAIDS AdvReac Intermediate other Uncoded 01/01/24 16:28 General ANTHONY: 3 Medical Decision Making Quality:SDOH Health Related Social Needs: No Data to Display PFSH All Active Problems (Updated 04/12/24 @ 07:33 by Dontrell Britt MD) Cellulitis of right thumb (Acute) Lumbar radiculopathy (Acute) Hormone replacement therapy (Acute) For management of severe hot flashes Gastritis (Acute) Esophageal reflux (Chronic) Persistent insomnia (Acute) Migraine headache (Chronic) Generalized anxiety disorder (Acute) Dysthymia (Acute) Encounter to establish care (Acute) Spinal stenosis at L4-L5 level (Acute) 01/20/20-[facility]; sacroiliac joint dysfunction, spondylosis of lumbar region without myelopathy or radiculopathy. Liv Freeman MD Insomnia (Acute) Rhytides (Acute) 06/28/20 Dr. Alvarado Right ovarian cyst (Acute) 2020: decrease in size from 6cm to 3.4cm Elevated hemoglobin A1c (Acute) Hyperlipidemia (Acute) Abnormal blood cell count (Acute) Sacroiliac joint dysfunction of left side (Acute) HAV (hallux abducto valgus) (Acute 08/31/21) Right foot Pronation of right foot (Acute 08/31/21) Encounter for screening for other viral diseases (Acute) Allergic rhinitis (Acute) Chronic facial pain (Acute) Traumatic tear of right rotator cuff (Acute 06/17/22) Medical History Cervical disc herniation (~09/10/23) S/P L4-5 PLIF and L L5-S1 micro surgical decompression on 09/10/[address] Fuller COVID 05/19/22 SLAP lesion of right shoulder Acute appendicitis without mention of peritonitis Depression Surgical History S/P lumbar fusion (09/10/23) L4-5 decompression, PLIF and segmental instrumented fusion of anterolisthesis and stenosis. ASIF - Jonny Hx of colonoscopy History of esophagogastroduodenoscopy (EGD) History of loop electrical excision procedure (LEEP) [place] 1-2 (2002) History of laparoscopic appendectomy (2007) Family History Brother Substance abuse Anxiety Bipolar disorder Depression Hypertension Father Anxiety Depression Heart disease Hypertension Sister Anxiety Depression Maternal Grandmother Anxiety Paternal Grandmother Anxiety Mother Cancer Maternal Grandfather Hypertension Paternal Grandfather Hypertension Social History (Updated 01/01/24 @ 16:33 by Barb Snow LPN) Smoking/Tobacco Use Status: Never Second Hand Exposure: No Smoking risk assessment performed?: Yes Alcohol Intake: never Drug use: Never Substance use type: does not use Counseling given: No Adopted: No Caregiver/Support person: No Foster care: No Household members: significant other Housing: house Number of Children: 0 Communication Needs: None Education Level: other Details: MD Do you need help understanding health information?: Never current occupation: General Surgeon, [employer] Pets and animals: Yes Pets and animals: cat(s) Sexually active: Yes Do you think of yourself as: straight/heterosexual Current gender identity: female What is your relationship status?: living with partner How often do you talk on the phone with friends or family?: three or more times per week How often do you get together with friends or relatives?: once per week Do you belong to any clubs or organized social groups?: no Panel score (0-1 are the most socially isolated patients): 2 What type of physical activity do you participate in: weight lifting, other Details: Cardio and yoga Duration: 30-45 minutes/day Frequency: 3-4 times per week Caridad/Baptist: Hoahaoism Special caridad needs: No Seatbelt use: always Helmet use: Yes Helmet use: always Drive intox or ride w/intox delivery driver/supervisor: No Working smoke detector in home: Yes Carbon monox detector in home: Yes Do you feel safe at home: Yes Do you feel safe in your relationship?: Yes Female Reproductive History Menstrual control method: permanent sterilization Menopause type: natural History History 0 Para Hx # Term Pregnancies Multiple births Hx # Pregnancies Ectopic pregnancies AB induced Hx Number of Living Children AB spontaneous
[2024-04-12 07:12] VITALS: BP 159/65; PULSE 81; RESP 15; TEMP 36.4; O2SAT 98
[2024-04-12 07:39] VITALS: BP 159/65; PULSE 81; RESP 15; TEMP 36.4; O2SAT 98
== END 2024-04-12 07:42 | disposition home or self-care (01) ==
LOC: ER 07:43
PROVIDERS: Emergency Provider Emergency Medicine; PCP Nurse Practitioner
DX: L03.011 Cellulitis of right finger (principal)
CPT/HCPCS: 99283

== ENCOUNTER 2024-04-30 14:33 | Outpatient (CLI) | payer OTHER, SELFPAY ==
[2024-04-30 14:05] LABS: Cholesterol 202 mg/dL (<200); HDL Cholesterol 56 mg/dL (40-60); Triglyceride 444 mg/dL (<150)
[2024-04-30 14:35] LABS: LDL CHOLESTEROL 106 mg/dL (<100)
[2024-04-30 15:18] LABS: Hemoglobin A1C 5.5 % (<5.7)
[2024-05-05 17:26] LABS: Apolipoprotein B, Serum 86 mg/dL (48-124); Beta VLDL Cholesterol Not Detected mg/dL (<15); Beta VLDL Triglycerides Not Detected mg/dL (<15); Cholesterol, Total, CDC 207 mg/dL; Chylomicron Cholesterol 10 mg/dL; Chylomicron Triglycerides 203 mg/dL; HDL Cholesterol, CDC 45 mg/dL (>=50); LDL Cholesterol 90 mg/dL; LDL Triglycerides 43 mg/dL (<=50); Lp(a) Cholesterol 16 mg/dL (<5); LpX Not detected; Triglycerides, CDC 465 mg/dL; VLDL Cholesterol 46 mg/dL (<30); VLDL Triglycerides 177 mg/dL (<120)
== END 2024-04-30 14:34 | disposition home or self-care (01) ==
LOC: LBO 14:33
PROVIDERS: PCP Nurse Practitioner; Visit Provider Nurse Practitioner
DX: E11.9 Type 2 diabetes mellitus without complications (principal); E78.5 Hyperlipidemia, unspecified; R73.09 Other abnormal glucose; E78.00 Pure hypercholesterolemia, unspecified
CPT/HCPCS: 36415; 80061; 83721; 82172; 82664; 83036

== ENCOUNTER 2024-07-08 06:38 | Emergency (ER) | payer OTHER, SELFPAY ==
[2024-07-08 06:43] VITALS: BP 145/74; PULSE 82; RESP 16; TEMP 36.8; O2SAT 98
[2024-07-08 06:51] VITALS: RESP 16
--- NOTE | 2024-07-08 06:58 | W.ED.GENAD ---
Discharge Plan Disposition Patient Disposition: Home Discharge Details Clinical Impression: Right inguinal pain Primary Care Provider: Desire Julian ED Provider: Dontrell Britt [place] Meds and New Rx's Prescriptions: New prednisone 50 mg tablet 50 mg PO DAILY Qty: 4 0RF Rx Instructions: Please begin taking tomorrow as you have received steroids in the emergency department gabapentin 300 mg capsule 300 mg PO TID Qty: 60 0RF ketorolac 10 mg tablet 10 mg PO Q8H PRN5 Days Qty: 14 0RF No Action magnesium oxide 500 mg capsule 500 mg PO DAILY diclofenac sodium [Voltaren] 1 % gel 2 gm TP QID red yeast rice 600 mg capsule 600 mg PO BID Rx Instructions: give with meal/snack progesterone micronized [Prometrium] 100 mg capsule 100 mg PO DAILY Qty: 90 4RF fexofenadine 180 mg tablet 180 mg PO DAILY fluticasone propionate [Flonase Allergy Relief] 50 mcg/actuation spray,suspension See Rx Instructions AMELIA DAILY Rx Instructions: 1-2 sprays intranasal daily; lidocaine 5 % adhesive patch,medicated 1 patch topical DAILY PRN (Reason: pain) Qty: 30 6RF methocarbamol 750 mg tablet 750 mg PO TID PRN (Reason: back pain) Qty: 90 4RF estradiol 1 mg tablet 1 mg PO DAILY Qty: 90 4RF bupropion HCl [Wellbutrin XL] 150 mg tablet extended release 24 hr 150 mg PO DAILY Qty: 90 3RF celecoxib [Celebrex] 200 mg capsule 200 mg PO BID PRN (Reason: pain) Qty: 180 3RF zolpidem [Ambien CR] 12.5 mg tablet,ext release multiphase 12.5 mg PO QHS PRN (Reason: insomnia) Qty: 90 1RF venlafaxine [Effexor XR] 150 mg capsule,extended release 24hr 150 mg PO DAILY Qty: 90 3RF pantoprazole 40 mg tablet,delayed release (DR/EC) 40 mg PO DAILY Qty: 90 3RF dvxvbbfkcv-tlwiiiztrczsn-msfq 50-300-40 mg capsule 2 cap PO Q4H PRN (Reason: pain) Qty: 30 2RF propranolol 40 mg tablet 20 mg PO BID Qty: 90 3RF gabapentin 100 mg capsule 100 mg PO TID PRN (Reason: back pain exacerbation) Qty: 30 0RF Rx Instructions: Back pain exacerbation Discharge Instructions Additional Instructions: You are seen in the emergency department for your groin pain. Your CT showed no sign of any hernias nor any abnormalities with your blood vessels. As we discussed, please return to the emergency department if you develop numbness or tingling in your right lower extremity or any weakness. Otherwise please follow-up with your primary care provider in the next week. A prescription has been sent for prednisone and gabapentin which you should take as directed. Discharge Data Discharge Date/Time-TO BE ENTERED AT DEPARTURE: 07/08/24 09:59 HPI General Date/Time Provider Initiated Documentation: 07/08/24 06:58. HPI Narrative: MDM This is an uncomfortable appearing normothermic and nontachycardic 54-year-old female with right groin pain concerning for the possibility of muscle strain versus internal hematoma for which patient will undergo CT pelvis with IV contrast. No pain out of proportion to suggest necrotizing soft tissue infection. No unintentional weight loss night sweats nor B symptoms to suggest malignancy. No saddle anesthesia to suggest cauda equina syndrome. No IV drug use nor fevers to suggest spinal epidural abscess. No trauma nor history of malignancy so my suspicion is low for pathological fracture. No rash to suggest zoster. No abdominal symptoms to suggest appendicitis and specifically no right lower quadrant pain or fevers. No anticoagulant use to suggest increased risk for spinal epidural hematoma. No dysuria or frequency so doubt UTI. No abnormal vaginal discharge so my suspicion is low for sexually transmitted infection. No fevers or pain with passive range of motion to suggest septic joint. I considered ovarian torsion however the absence of abdominal pain nausea vomiting my suspicion was low for torsion so I did not feel that the patient required an ultrasound. Will reassess following imaging and labs. 7:38 AM CBC with leukopenia no anemia. No thrombocytopenia. Leukopenia appears similar to prior draws from 2020 and 2021. 8:23 AM No risk factors for DVT nor calf pain to suggest DVT. Nonetheless I performed a duplex study which was negative for DVT. 9:[address] scan was read as unremarkable by radiology. She had perhaps slight improvement of her pain. She requested a steroid prescription pill. Will also add gabapentin in the event that there is a component of neuropathic pain secondary to muscle spasm from her back. We discussed return indications including any numbness or tingling in her foot or any weakness in her foot. Given her history of spinal stenosis. Lumbar radiculopathy a limited lumbar spinal reconstruction was added to her CT pelvis which was unremarkable. She understood her return indications and was discharged with an empiric trial of expectant outpatient management. Chronic conditions affecting the care of the patient: N/A History obtained from an outside historian: N/A External record review: N/A Medications: Ketorolac Social determinants of health affecting disposition: N/A Management discussed with: radiology Treatment/interventions considered: N/A Response to therapies provided: slightly improved symptoms in the ED HPI This is a 54-year-old female arriving to the emergency department via private vehicle in the setting of right-sided inguinal and groin pain for the past approximately 24 hours. Patient had no significant increase in activity but was doing some light yard work this weekend, some painting at home, some walking and yoga. She woke 24 hours ago with pain in her right groin. She describes a burning sensation. No prior history of similar symptoms. She does have some chronic back pain and took Toradol which improved her back pain but did not improve her groin pain. She denies any specific trauma. No recent ice-skating. She denies dysuria and frequency. No abnormal vaginal discharge. No history of DVTs nor any recent immobilization. She denies any motor or sensory deficits to her lower extremity on the right. She denies abdominal pain nausea vomiting. No chest pain or shortness of breath. Exam General: Uncomfortable-appearing in no acute distress speaking in complete sentences. Head: Normocephalic, atraumatic. Eye: Extraocular eye movements intact. No conjunctival injection. No scleral icterus. Ear, nose, mouth, throat: Grossly normal inspection. Normal voice, handling secretions normally. Neck: Trachea midline. Cardiovascular: Well-perfused distal extremities. Respiratory: Nonlabored respiration. Gastrointestinal: Nondistended abdomen. No right lower quadrant tenderness. Back: Well-healed lumbar incision midline. No midline lumbar spinal tenderness. Musculoskeletal: Right inguinal crease with no rash. No significant tenderness on palpation. 5 out of 5 bilateral lower extremity strength in dorsi and plantarflexion. No clonus. Bilateral feet warm well-perfused. 2+ PT and DP pulses. Patient has no pain with passive range of motion of her right hip which is full. Skin: Normal for age and race, grossly normal temperature and turgor. No acute rash. Neurologic: Alert and appropriate, no apparent acute deficits. Psychiatric: Mood and manner are appropriate. Grooming and personal hygiene are appropriate. Related Data Home Medications ?Medication ?Instructions ?Recorded ?Confirmed fexofenadine 180 mg tablet 180 mg PO DAILY 09/25/19 07/08/24 fluticasone propionate 50 See Rx Instructions intranasal 09/25/19 07/08/24 mcg/actuation nasal DAILY spray,suspension (Flonase Allergy Relief) diclofenac sodium 1 % topical gel 2 gm topical QID 09/30/19 07/08/24 (Voltaren) magnesium oxide 500 mg capsule 500 mg PO DAILY 09/30/19 07/08/24 red yeast rice 600 mg capsule 600 mg PO BID 12/08/20 07/08/24 lidocaine 5 % topical patch 1 patch topical DAILY PRN pain #30 08/27/23 07/08/24 ea methocarbamol 750 mg tablet 750 mg PO TID PRN back pain #90 09/17/23 07/08/24 tabs estradiol 1 mg tablet 1 mg PO DAILY #90 tabs 10/05/23 07/08/24 progesterone micronized 100 mg 100 mg PO DAILY #90 caps 10/24/23 07/08/24 capsule (Prometrium) bupropion HCl 150 mg 24 hr tablet, 150 mg PO DAILY #90 tabs 10/25/23 07/08/24 extended release (Wellbutrin XL) celecoxib 200 mg capsule (Celebrex) 200 mg PO BID PRN pain #180 caps 12/24/23 07/08/24 zolpidem 12.5 mg tablet,extended 12.5 mg PO QHS PRN insomnia #90 02/12/24 07/08/24 release,multiphase (Ambien CR) tabs venlafaxine 150 mg 150 mg PO DAILY #90 caps 04/28/24 07/08/24 capsule,extended release 24 hr (Effexor XR) iosioyzgay-wqwplnookelpv-nclxhgrx 2 cap PO Q4H PRN pain #30 caps 06/17/24 07/08/24 50 mg-300 mg-40 mg capsule pantoprazole 40 mg tablet,delayed 40 mg PO DAILY #90 tabs 06/17/24 07/08/24 release propranolol 40 mg tablet 20 mg (1/2 x 40 mg) PO BID #90 tabs 06/23/24 07/08/24 gabapentin 100 mg capsule 100 mg PO TID PRN back pain 07/07/24 07/08/24 exacerbation #30 caps gabapentin 300 mg capsule 300 mg PO TID #60 caps 07/08/24 ketorolac 10 mg tablet 10 mg PO Q8H PRN 5 days #14 tabs 07/08/24 prednisone 50 mg tablet 50 mg PO DAILY #4 tabs 07/08/24 Previous Rx's ?Medication ?Instructions ?Recorded lidocaine 5 % topical patch 1 patch topical DAILY PRN pain #30 08/27/23 ea methocarbamol 750 mg tablet 750 mg PO TID PRN back pain #90 09/17/23 tabs estradiol 1 mg tablet 1 mg PO DAILY #90 tabs 10/05/23 progesterone micronized 100 mg 100 mg PO DAILY #90 caps 10/24/23 capsule (Prometrium) bupropion HCl 150 mg 24 hr tablet, 150 mg PO DAILY #90 tabs 10/25/23 extended release (Wellbutrin XL) celecoxib 200 mg capsule (Celebrex) 200 mg PO BID PRN pain #180 caps 12/24/23 zolpidem 12.5 mg tablet,extended 12.5 mg PO QHS PRN insomnia #90 02/12/24 release,multiphase (Ambien CR) tabs venlafaxine 150 mg 150 mg PO DAILY #90 caps 04/28/24 capsule,extended release 24 hr (Effexor XR) gzgbjfbstg-bgfsnrhogoici-tghrfikr 2 cap PO Q4H PRN pain #30 caps 06/17/24 50 mg-300 mg-40 mg capsule pantoprazole 40 mg tablet,delayed 40 mg PO DAILY #90 tabs 06/17/24 release propranolol 40 mg tablet 20 mg (1/2 x 40 mg) PO BID #90 tabs 06/23/24 gabapentin 100 mg capsule 100 mg PO TID PRN back pain 07/07/24 exacerbation #30 caps gabapentin 300 mg capsule 300 mg PO TID #60 caps 07/08/24 ketorolac 10 mg tablet 10 mg PO Q8H PRN 5 days #14 tabs 07/08/24 prednisone 50 mg tablet 50 mg PO DAILY #4 tabs 07/08/24 Allergies Allergy/AdvReac Type Severity Reaction Status Date / Time rizatriptan (From [facility]) Allergy Severe Other (See Verified 07/08/24 06:47 Comment) sumatriptan (From Imitrex) Allergy Severe other Verified 07/08/24 06:47 cat dander Allergy other Verified 07/08/24 06:47 kiwi Allergy Anaphylaxsi Verified 07/08/24 06:47 s metronidazole (From Flagyl) Allergy other Verified 07/08/24 06:47 omeprazole (From Prilosec) AdvReac Intermediate other Verified 07/08/24 06:47 codeine AdvReac Nausea and Verified 07/08/24 06:47 Vomiting esomeprazole (From Nexium) AdvReac Psychologically Verified 07/08/24 06:47 Crazy hydrocodone AdvReac other Verified 07/08/24 06:47 latex AdvReac other Verified 07/08/24 06:47 meperidine (From Demerol) AdvReac Nausea and Verified 07/08/24 06:47 Vomiting montelukast (From Singulair) AdvReac other Verified 07/08/24 06:47 nickel AdvReac other Verified 07/08/24 06:47 wool AdvReac other Verified 07/08/24 06:47 dyes Allergy other Uncoded 07/08/24 06:47 environmental Allergy Other (See Uncoded 07/08/24 06:47 Comment) perfumes Allergy other Uncoded 07/08/24 06:47 PO NSAIDS AdvReac Intermediate other Uncoded 07/08/24 06:47 General Stated Complaint: [facility] ANTHONY: 3 Course Vital Signs Vital signs: Vital Signs Temperature 36.8 C 07/08/24 06:43 Pulse 82 07/08/24 06:43 Respiratory Rate 16 07/08/24 06:43 Blood Pressure 145/74 H 07/08/24 06:43 Pulse Oximetry 98 07/08/24 06:43 Temperature 36.8 C 07/08/24 06:43 Temperature Source Temporal Artery Scan 07/08/24 06:43 Pulse 82 07/08/24 06:43 Respiratory Rate 16 07/08/24 06:51 Respiratory Effort Normal, Non-Labored 07/08/24 06:51 Respiratory Depth Normal 07/08/24 06:51 Respiratory Pattern Normal 07/08/24 06:51 Blood Pressure 145/74 H 07/08/24 06:43 Blood Pressure Position Supine 07/08/24 06:43 Pulse Oximetry 98 07/08/24 06:43 Oxygen Delivery Method Room Air 07/08/24 06:43 Oxygen Flow Rate 0 07/08/24 06:43 Pain Level 8 07/08/24 06:43 Medical Decision Making Quality:SDOH Health Related Social Needs: No Data to Display PFSH All Active Problems (Updated 07/08/24 @ 09:41 by Dontrell Britt MD) Right inguinal pain (Acute) Lumbar radiculopathy (Acute) Hormone replacement therapy (Acute) For management of severe hot flashes Gastritis (Acute) Esophageal reflux (Chronic) Persistent insomnia (Acute) Migraine headache (Chronic) Generalized anxiety disorder (Acute) Dysthymia (Acute) Encounter to establish care (Acute) Spinal stenosis at L4-L5 level (Acute) 01/20/20-[facility] [place] [facility]; sacroiliac joint dysfunction, spondylosis of lumbar region without myelopathy or radiculopathy. Liv Freeman MD Insomnia (Acute) [place] (Acute) 06/28/20 Dr. Alvarado Right ovarian cyst (Acute) 2020: decrease in size from 6cm to 3.4cm Elevated hemoglobin A1c (Acute) Hyperlipidemia (Acute) Abnormal blood cell count (Acute) Sacroiliac joint dysfunction of left side (Acute) HAV (hallux abducto valgus) (Acute 08/31/21) Right foot Pronation of right foot (Acute 08/31/21) Encounter for screening for other viral diseases (Acute) Allergic rhinitis (Acute) Chronic facial pain (Acute) Traumatic tear of right rotator cuff (Acute 06/17/22) Medical History Cervical disc herniation (~09/10/23) S/P L4-5 PLIF and L L5-S1 micro surgical decompression on 09/10/[address] Jonny FRANCO 05/19/22 SLAP lesion of right shoulder Acute appendicitis without mention of peritonitis Depression Surgical History S/P lumbar fusion (09/10/23) L4-5 decompression, PLIF and segmental instrumented fusion of anterolisthesis and stenosis. ASIF - Jonny Hx of colonoscopy History of esophagogastroduodenoscopy (EGD) History of loop electrical excision procedure (LEEP) [place] 1-2 (2002) History of laparoscopic appendectomy (2007) Family History Brother Substance abuse Anxiety Bipolar disorder Depression Hypertension Father Anxiety Depression Heart disease Hypertension Sister Anxiety Depression Maternal Grandmother Anxiety Paternal Grandmother Anxiety Mother Cancer Maternal Grandfather Hypertension Paternal Grandfather Hypertension Social History (Updated 01/01/24 @ 16:33 by Barb Snow LPN) Smoking/Tobacco Use Status: Never Second Hand Exposure: No Smoking risk assessment performed?: Yes Alcohol Intake: never Drug use: Never Substance use type: does not use Counseling given: No Adopted: No Caregiver/Support person: No Foster care: No Household members: significant other Housing: house Number of Children: 0 Communication Needs: None Education Level: other Details: MD Do you need help understanding health information?: Never current occupation: General Surgeon, [employer] Pets and animals: Yes Pets and animals: cat(s) Sexually active: Yes Do you think of yourself as: straight/heterosexual Current gender identity: female What is your relationship status?: living with partner How often do you talk on the phone with friends or family?: three or more times per week How often do you get together with friends or relatives?: once per week Do you belong to any clubs or organized social groups?: no Panel score (0-1 are the most socially isolated patients): 2 What type of physical activity do you participate in: weight lifting, other Details: Cardio and yoga Duration: 30-45 minutes/day Frequency: 3-4 times per week Caridad/Yarsani: Mosque Special caridad needs: No Seatbelt use: always Helmet use: Yes Helmet use: always Drive intox or ride w/intox milk wagon driver: No Working smoke detector in home: Yes Carbon monox detector in home: Yes Do you feel safe at home: Yes Do you feel safe in your relationship?: Yes Female Reproductive History Menstrual control method: permanent sterilization Menopause type: natural History History 0 Para Hx # Term Pregnancies Multiple births Hx # Pregnancies Ectopic pregnancies AB induced Hx Number of Living Children AB spontaneous POCUS Exam (ED) Limited Vascular Exam DATE OF EXAM: 07/08/24 TIME OF EXAM: 08:27 PROVIDER THAT PERFORMED THE STUDY: Dontrell Britt IS THIS A REPEAT EXAM DURING THIS ENCOUNTER: No Vascular Exam: Right upper extremity REASON FOR EXAM: Other indication: r leg pain Exam complete DIFFERENTIAL DIAGNOSES: Negative right lower extremity oardl-qi-nrbn DVT study
--- NOTE | 2024-07-08 07:13 | DI.CT_ITS ---
Exam(s) CT PELVIC W EXAM: CT PELVIC W CLINICAL HISTORY: Right inguinal pain radiating to groin. TECHNIQUE: Imaging Protocol: Axial computed tomography images with coronal and sagittal reformatted images were created and reviewed CONTRAST MATERIAL: Intravenous: Omnipaque 85cc Oral: None COMPARISON: No exams were available for comparison FINDINGS: PELVIS: OSSEOUS:No pelvic or hip fractures evident. Posterior fusion hardware noted at L4-5 level. No signi ficant osseous lesions. ANTERIOR ABDOMINAL WALL/GI:No evidence of bowel obstruction. Appendix appears to be surgically absen t.No evidence of sigmoid diverticulitis.Small fat only containing umbilical hernia. Subtle anterior abdominal wall hernia mesh noted with no associated fluid collections. LYMPH NODES: There is no intrapelvic nor inguinal adenopathy. REPRODUCTIVE: Uterus and adnexal regions unremarkable. No free fluid. URINARY BLADDER: Mildly distended. No abnormal bladder wall thickening. No masses. No clots. No r adiopaque calculi within the bladder lumen. IMPRESSION: 1. Previous surgeries as above. 2. No acute abnormal findings evident in the pelvis. RADIATION DOSE DELIVERED: 191.73mGy.cm Total DLP DATA REPOSITORY: All CT scans at this facility are submitted to the National Radiology Data Registry (NRDR) Dose Index Registry (DIR) with the [employer] ([employer]). RADIATION OPTIMIZATION: All CT scans at this facility use at least one of these dose optimization te chniques: automated exposure control; mA and/or kV adjustment per patient size (includes targeted exa ms where dose is matched to clinical indication); or iterative reconstruction.
[2024-07-08 07:33] LABS: Absolute Basophil Count 0.02 10^3/uL (0.0-0.2); Absolute Eosinophil Count 0.11 10^3/uL (0.0-0.7); Absolute Lymphocyte Count 1.03 10^3/uL (1.2-3.4); Absolute Monocyte Count 0.32 10^3/uL (0.1-0.8); Absolute Neutrophil Count 2.01 10^3/uL (1.2-6.7); Basophils % 0.6 %; Eosinophils % 3.2 %; HCT 39.9 % (36.0-46.0); Lymphocytes % 29.5 %; MCHC 32.6 % (32.0-36.0); MCV 92 fL (80-95); MPV 10.2 fL (8.0-11.0); Monocytes % 9.2 %; Neutrophils % 57.5 %; Platelet Count 211 10^3/uL (130-400); RBC 4.33 10^6/uL (3.93-5.22); RDW 12.9 % (11.7-14.6); RDW-SD 43.8 fL; WBC 3.49 10^3/uL (4.4-10.8)
[2024-07-08] MEDS: Ketorolac 15 MG/ML VIAL IVP (07:35)
[2024-07-08 07:43] LABS: Anion Gap 5.5 mmol/L (3-11); BUN 16 mg/dL (7-18); CO2 31.5 mmol/L (21.0-32.0); CREATININE 1.2 mg/dL (0.55-1.02); Calcium 8.7 mg/dL (8.5-10.1); Chloride 103 mmol/L (98-107); Estimated GFR 53.46 (mL/min/1.73m2); Glucose 94 mg/dL (74-106); Potassium 4.4 mmol/L (3.5-5.1); Sodium 140 mmol/L (136-145)
[2024-07-08] MEDS: Normal Saline - Diluent 50 ML VIAL IJ (08:02)
[2024-07-08] MEDS: Omnipaque 350 MG/ML 500 ML BTL-Imaging package IJ (08:03)
[2024-07-08] MEDS: predniSONE 20 MG TAB 60 MG PO (09:37)
[2024-07-08] MEDS: Gabapentin 300 MG CAP PO (09:37)
[2024-07-08 09:45] VITALS: BP 150/72; PULSE 69; RESP 16; O2SAT 96
--- NOTE | 2024-07-08 09:57 | DI.CT_ITS ---
Exam(s) CT LUMBAR SPINE RECONS EXAM: CT LUMBAR SPINE RECONS CLINICAL HISTORY: Please complete recons. TECHNIQUE: Imaging Protocol: Axial computed tomography images with coronal and sagittal reformatted images were created and reviewed COMPARISON: No exams were available for comparison FINDINGS: OSSEOUS: Field of view of this study is from just below the superior endplate of L4 down through the sacrum. There is posterior fusion hardware rods at the L4-5 level with bilateral intrapedicular screws at the se 2 levels and the screws appear to be in satisfactory position, as is the L4-5 disc space divide ow er device.. There is moderate disc space narrowing at L5-S1 level. There is some annular bulging no ty at this level but no obvious prominent disc herniation and central canal dimensions are lower nor mal. Moderate degenerative changes are noted in the L5-S1 facet joints. No significant listhesis. No evidence of osteomyelitis. Visualized sacrum and SI joints appear unremarkable. PARASPINAL SOFT TISSUES: No abnormal fluid collections in the paraspinal tissues within the field of view of this study. IMPRESSION: 1. Fusion surgery findings as above. No obvious abnormality evident on these recon views.. RADIATION DOSE DELIVERED: Total DLP DATA REPOSITORY: All CT scans at this facility are submitted to the National Radiology Data Registry (NRDR) Dose Index Registry (DIR) with the [employer] ([employer]). RADIATION OPTIMIZATION: All CT scans at this facility use at least one of these dose optimization te chniques: automated exposure control; mA and/or kV adjustment per patient size (includes targeted exa ms where dose is matched to clinical indication); or iterative reconstruction.
== END 2024-07-08 09:59 | disposition home or self-care (01) ==
PROVIDERS: Emergency Provider Emergency Medicine; PCP Nurse Practitioner
DX: R10.31 Right lower quadrant pain (principal); E78.5 Hyperlipidemia, unspecified; Z98.1 Arthrodesis status; Z90.49 Acquired absence of other specified parts of digestive tract
CPT/HCPCS: 36415; 80048; 93971; 96374; 99285; 72193; 85025; 99284; J1885; J7512

== ENCOUNTER 2024-07-11 01:49 | Outpatient (CLI) | payer OTHER, SELFPAY ==
--- NOTE | 2024-07-11 07:00 | DI.MRI_ITS ---
Exam(s) MR LUMBAR SPINE WO EXAM: MR LUMBAR SPINE WO CLINICAL HISTORY: acute Lt L3 radiculopathy symptoms,spinal stenosis L4-5,RADICULOPATHY,. TECHNIQUE: Multiplanar multisequence MRI of the Lumbar spine was performed. COMPARISON: MR MR LUMBAR SPINE WO from 05/28/[address] LUMBAR SPINE RECONS from 07/08/2024 FINDINGS: This patient has undergone L4-5 fusion surgery since the prior MRI scan of May 2023 Conus medullaris is at normal level. There is no evidence of conus mass nor subjacent clumping of in trathecal nerve roots to suggest arachnoiditis. Small Tarlov intra sacral cyst is again noted at the S2-S3 level cyst subjacent to the distal thecal sac termination. Bones:There are no fractures nor ominous osseous lesions in the lumbar vertebral bodies and visualize d sacrum. Benign intraosseous hemangioma is again noted in the right-side of the S1 vertebral body. Other smaller benign intraosseous hemangiomas are again evident in L2 and T12 vertebral bodies, unch anged.. With respect to the individual levels... T12-L1: Unremarkable L1-2: Normal disc height and signal. No disc herniation nor central canal stenosis.No foraminal steno sis L2-3: Slightly decreased disc height on the right side of the disc space. There is mild annular bulg ing in the floor of the exiting right neural foramen but without evidence of significant foraminal st enosis on either side at this level. No significant disc herniation or central canal stenosis. No si gnificant facet arthropathy. L3-4: This is one level above the fusion. There is some annular bulging which has increased from pre vious and there is asymmetric disc height loss on the right side of the disc space at this level agai n evident. However, on the present study there is now a posterolateral right disc protrusion which w as not previously evident and which exhibits cranial migration behind the right-side of the L3 verteb ral body extending cephalad for a distance of 11 mm. This indents the right-side of the thecal sac a nd adjacent nerve roots. The disc protrusion extends 5 mm posterior to the posterior cortex of the v ertebra. The width of the disc protrusions approximately 9 mm. It also occupies part of the right l ateral recess at the L3-4 level. The opposite-left exiting neural foramen at this level does not exh ibit significant foraminal stenosis. L4-5: This is the level of the fusion with posterior fusion mike secured by bilateral intrapedicular s crews which appear to be in satisfactory position relative to the superior endplates and is also an i ntervertebral disc space device which appears to be in satisfactory position and there is presently n o listhesis at this level (as was previously present). Although there is abundant artifact from the hardware at this level, there is no evidence of obvious disc herniation at this level and there is si gnificant improvement in the central canal dimensions at this level which are now within normal limit s. There is also no evidence of foraminal stenosis on either side at this level. There is no abnorm al intraosseous signal at this postoperative level to suggest osteomyelitis. L5-S1: This level exhibits relatively uniform moderate-advanced disc space narrowing, similar to prev ious. Posteriorly there is mild symmetrical annular bulging without evidence of central spinal canal stenosis. However, on the left side there is a lateral left disc protrusion again evident at the le philip of the exiting left neural foramen which is causing impingement of the exiting left nerve root at this level between the herniation and the overlying left L5 pedicle. There is no disc herniation on the opposite-right side at this level on no evidence of right-sided foraminal stenosis at this level . Soft tissues: No significant abnormal fluid collections in this patient has had prior fusion surgery . IMPRESSION: 1. Compared to the prior MRI scan of 05/28/2023 there has been interval fusion surgery at L4-5 level with significant improvement of the central canal stenosis at this level and there is no remaining li sthesis at this level nor foraminal stenosis at this level. 2. However, at the L3-4 level (one level above the fusion) there is increased annular bulging and a n ew posterolateral right disc protrusion as described above which is at and above the level of the dis c space, extending for a distance of 10-11 mm behind the right-side of the L3 vertebral body. There is some mass effect from this finding upon the thecal sac at this level as well as in the right later al recess and significant contact with the right nerve root at this level. 3. At the L5-S1 level there is again noted chronic disc space narrowing and annular bulging and there is a significant lateral left disc herniation at the level the exiting left neural foramen noted. T his results in significant impingement of the exiting left nerve root at this level between the herni ated disc and the overlying L5 pedicle; essentially significant unilateral left foraminal stenosis. There is no foraminal stenosis on the right side at this level. 4. Stable benign intraosseous hemangiomas in the S1, L2, and T12 vertebral bodies. No ominous osseo us lesions and no evidence of osteomyelitis in this patient who has had prior fusion surgery. Also n o significant abnormal fluid collections evident. DATA REPOSITORY:
== END 2024-07-11 02:09 ==
LOC: DI 01:49
PROVIDERS: PCP Nurse Practitioner; Visit Provider Psychiatry & Neurology Neurology
DX: M48.061 Spinal stenosis, lumbar region without neurogenic claudication (principal); M54.16 Radiculopathy, lumbar region
CPT/HCPCS: 72148

== ENCOUNTER 2024-07-21 10:03 | Outpatient (CLI) | payer OTHER, SELFPAY ==
--- NOTE | 2024-07-21 10:00 | DI.RAD_ITS ---
Exam(s) XR PAIN CLINIC LUMBAR SP 2V EXAM: XR PAIN CLINIC LUMBAR SP 2V CLINICAL HISTORY: Lumbar Radiculopathy. TECHNIQUE: Fluoroscopy was provided for the referring physician for guidance with performing pain cl inic injection procedure. COMPARISON: No exams were available for comparison FINDINGS: Please see procedure note for details. Fluoro time: 39.1 seconds RADIATION DOSE DELIVERED: Ka,r=8.2 mGy
--- NOTE | 2024-07-21 10:13 | PDOC.PAIN ---
Date of service: 07/21/24 Time of Service: 10:39 Pain Managment Procedure Note Procedure Note Procedure Note: Lumbar Transforaminal Epidural Steroid Injection ? Location: RIGHT L3 ? Pre-procedure Diagnosis: M54.17-Radiculopathy, lumbosacral region M54.16 Radiculopathy, lumbar region ? Post-procedure Diagnosis:? The same as above ? Sedation:? none ? Estimated blood loss:? less than 2 cc ? Surgeon:? John Lovelace MD COMMENT: Patient is status post L4-5 posterior fusion with new disc protrusion above at L3-4 on the right ? Procedure Detail:?? The procedure and potential risks were explained to the patient and informed written consent was obtained. The patient was escorted to the procedure room and placed in the prone position. Pillows were utilized for proper positioning and comfort. Time out was performed in the procedure room with nursing staff confirming the patient's identity, procedure to be performed, allergies, and any blood thinning or anti-platelet medications. The patient's lower back was prepped with ChloraPrep and draped in a sterile fashion. Sterile gloves were used, a face mask was worn, and new single dose vials of all medications were used with the top being swabbed with alcohol and given time to dry prior to withdrawal of medication. A right-sided oblique fluoroscopic view was obtained, with visualization of L3-4. Lidocaine 1% was used to anesthetize the skin. The tip of a 22-gauge, Quincke needle was advanced toward the 6 o'clock position of the superior pedicle at the target level.? It was advanced just under the pedicle to the neural foramen L3-4. Correct needle placement was confirmed through review of the fluoroscopy. Next, following negative aspiration, 1cc's of Omnipaque 240 contrast was injected under live fluoroscopy which showed good flow throughout the epidural space and no evidence of vascular flow or flow into adjacent compartments. Next, following negative aspiration, 15mg of preservative-free dexamethasone and 0.5ml of 0.5% bupivacaine was injected. The needle was gently removed.? ? The patient tolerated the procedure well.? Permanent images saved and recorded. Plan:? Follow up prn PAIN: PRE PROCEDURE 04/29 POST PROCEDURE 12/27 COMMENT: Patient given 30 mg of Toradol IM before she left. She will follow-up as needed. Can repeat with Depo-Medrol if not effective. Consider surgical reevaluation.
[2024-07-21 10:15] VITALS: PULSE 88; RESP 24; O2SAT 99
[2024-07-21] MEDS: Dexamethasone Sod. Phos./Pres-Free 10 MG/ML VIAL IJ (10:30)
[2024-07-21] MEDS: Bupivacaine 0.5% Pres-Free 10 ML VIAL IJ (10:30)
[2024-07-21] MEDS: Omnipaque 240 MG/ML 50 ML BTL IJ (10:30)
[2024-07-21] MEDS: Ketorolac 30 MG/ML VIAL IM (10:40)
--- NOTE | 2024-07-21 11:12 | PDOC.PAIN2_ITS ---
History of Present Illness History of Present Illness Chief Complaint: Right lower extremity pain last History of Present Illness: Problem 1: Low back pain to right lower extremity The pain is impacting the patient's ability to continue with their usual daily activities and resulting in decreased quality of life.? The patient?s symptoms and physical exam are most consistent with lumbar radiculitis. History of Present Illness: The patient has a history of back and radicular pain. She has been seen in the clinic before by Dr. Levy and has had 12 lumbar and cervical steroid injections. August 2023 patient had a decompression and fusion by Dr. Fuller and did well until approximately 3 weeks ago. She woke up with severe pain in her right thigh with burning sensation that tender to the emergency department. She is given steroid taper which helped she was doing somewhat better but still on combination of Skelaxin, gabapentin and Celebrex. She had some tramadol as well which helped. She traveled to the [place] to visit family over Thanksgiving she woke up this morning with severe pain began in the same distribution. Interval History: As above ?The patient denies fever or chills.? The patient denies saddle anesthesia or recent onset of bowel or bladder incontinence. Review of Systems:? Negative except for pertinent positive and negative findings as specified in the HPI. Physical Exam: General:? The patient is awake,alert communicates easily and makes good eye contact Eyes:? Anicteric, symmetric pupils Respiratory:? Breathing comfortably Cardiovascular:? No JVD, no peripheral edema Focused Lumbar Spine Physical Exam Appearance: No edema, erythema, ecchymosis, or muscle wasting noted.? Normal iliac crest alignment. well healed scar Normal lumbar lordosis.? No scoliosis appreciated.? Sensory: Normal sensation to light touch throughout both lower extremities? except right thigh decreased Strength: ? Hip flexion (L2, L3): ? Right: 4+/5 ? Left: 5/5 ? Knee flexion (L5-S2): ? Right: 5/5 ? Left: 5/5 ? Knee extension (L3, L4): ? Right: 5/5 ? Left: 5/5 ? Ankle dorsiflexion (L4, L5): ? Right: / ? Left: 12/22 ? Foot plantarflexion (S1): ? Right: 5/5 ? Left: / ?Great toe dorsiflexion (L5): ? Right: 5/ ? Left: 12/22 Images: MRI lumbar spine 07/11/2024-FINDINGS: This patient has undergone L4-5 fusion surgery since the prior MRI scan of May 2023 Conus medullaris is at normal level. There is no evidence of conus mass nor subjacent clumping of intrathecal nerve roots to suggest arachnoiditis. Small Tarlov intra sacral cyst is again noted at the S2-S3 level cyst subjacent to the distal thecal sac termination. Bones:There are no fractures nor ominous osseous lesions in the lumbar vertebral bodies and visualized sacrum. Benign intraosseous hemangioma is again noted in the right-side of the S1 vertebral body. Other smaller benign intraosseous hemangiomas are again evident in L2 and T12 vertebral bodies, unchanged.. With respect to the individual levels... T12-L1: Unremarkable L1-2: Normal disc height and signal. No disc herniation nor central canal stenosis.No foraminal stenosis L2-3: Slightly decreased disc height on the right side of the disc space. There is mild annular bulging in the floor of the exiting right neural foramen but without evidence of significant foraminal stenosis on either side at this level. No significant disc herniation or central canal stenosis. No significant facet arthropathy. L3-4: This is one level above the fusion. There is some annular bulging which has increased from previous and there is asymmetric disc height loss on the right side of the disc space at this level again evident. However, on the present study there is now a posterolateral right disc protrusion which was not previously evident and which exhibits cranial migration behind the right-side of the L3 vertebral body extending cephalad for a distance of 11 mm. This indents the right-side of the thecal sac and adjacent nerve roots. The disc protrusion extends 5 mm posterior to the posterior cortex of the vertebra. The width of the disc protrusions approximately 9 mm. It also occupies part of the right lateral recess at the L3-4 level. The opposite-left exiting neural foramen at this level does not exhibit significant foraminal stenosis. L4-5: This is the level of the fusion with posterior fusion mike secured by bilateral intrapedicular screws which appear to be in satisfactory position relative to the superior endplates and is also an intervertebral disc space device which appears to be in satisfactory position and there is presently no listhesis at this level (as was previously present). Although there is abundant artifact from the hardware at this level, there is no evidence of obvious disc herniation at this level and there is significant improvement in the central canal dimensions at this level which are now within normal limits. There is also no evidence of foraminal stenosis on either side at this level. There is no abnormal intraosseous signal at this postoperative level to suggest osteomyelitis. L5-S1: This level exhibits relatively uniform moderate-advanced disc space narrowing, similar to previous. Posteriorly there is mild symmetrical annular bulging without evidence of central spinal canal stenosis. However, on the left side there is a lateral left disc protrusion again evident at the level of the exiting left neural foramen which is causing impingement of the exiting left nerve root at this level between the herniation and the overlying left L5 pedicle. There is no disc herniation on the opposite-right side at this level on no evidence of right-sided foraminal stenosis at this level. Soft tissues: No significant abnormal fluid collections in this patient has had prior fusion surgery. IMPRESSION: 1. Compared to the prior MRI scan of 05/28/2023 there has been interval fusion surgery at L4-5 level with significant improvement of the central canal stenosis at this level and there is no remaining listhesis at this level nor foraminal stenosis at this level. 2. However, at the L3-4 level (one level above the fusion) there is increased annular bulging and a new posterolateral right disc protrusion as described above which is at and above the level of the disc space, extending for a distance of 10-11 mm behind the right-side of the L3 vertebral body. 3. At the L5-S1 level there is again noted chronic disc space narrowing and annular bulging and there is a significant lateral left disc herniation at the level the exiting left neural foramen noted. This results in significant impingement of the exiting left nerve root at this level between the herniated disc and the overlying L5 pedicle; essentially significant unilateral left foraminal stenosis. There is no foraminal stenosis on the right side at this level. 4. Stable benign intraosseous hemangiomas in the S1, L2, and T12 vertebral bodies. No ominous osseous lesions and no evidence of osteomyelitis in this patient who has had prior fusion surgery. Also no significant abnormal fluid collections evident. Assessment: New onset right radiculitis. Difficult to assess if she has some weakness or just guarding her right hip flexor and she has some numbness in the L3 distribution. Think is reasonable to try transforaminal epidural steroid injection she will follow-up with Dr. Fuller if she does not improve. ? This problem is an exacerbated chronic medical condition Plan: Orders: none Referrals: Patient to return to Dr. Fuller if not improving Interventions: Will proceed with right L3 transforaminal steroid injection today Medication Management: Would recommend that she get a renewal of her tramadol until the epidural steroid starts working or she had surgery Other Recommendations/Discussion: none Risks, benefits, and alternatives of the plan and treatments were discussed in detail.? The patient indicated understanding potential risks and benefits and would like to proceed as outlined above. Follow up: As needed Medical Decision Making Treatment and diagnostic options discussed and/or considered for the patient?s problem include physical therapy, prescription medications, and targeted interventional therapy. . Notes from each unique source reviewed today: Previous notes Results from each unique test reviewed today: MRI lumbar spine Review of Systems Medications/Allergies Allergies Allergy/AdvReac Type Severity Reaction Status Date / Time rizatriptan (From Maxalt) Allergy Severe Other (See Verified 07/10/24 15:38 Comment) sumatriptan (From Imitrex) Allergy Severe other Verified 07/10/24 15:38 cat dander Allergy other Verified 07/10/24 15:38 kiwi Allergy Anaphylaxsi Verified 07/10/24 15:38 s metronidazole (From Flagyl) Allergy other Verified 07/10/24 15:38 omeprazole (From Prilosec) AdvReac Intermediate other Verified 07/10/24 15:38 codeine AdvReac Nausea and Verified 07/10/24 15:38 Vomiting esomeprazole (From Nexium) AdvReac Psychologically Verified 07/10/24 15:38 Crazy hydrocodone AdvReac other Verified 07/10/24 15:38 latex AdvReac other Verified 07/10/24 15:38 meperidine (From Demerol) AdvReac Nausea and Verified 07/10/24 15:38 Vomiting montelukast (From Singulair) AdvReac other Verified 07/10/24 15:38 nickel AdvReac other Verified 07/10/24 15:38 wool AdvReac other Verified 07/10/24 15:38 dyes Allergy other Uncoded 07/10/24 15:38 environmental Allergy Other (See Uncoded 07/10/24 15:38 Comment) perfumes Allergy other Uncoded 07/10/24 15:38 PO NSAIDS AdvReac Intermediate other Uncoded 07/10/24 15:38 Medications: Current Medications Bupivacaine HCl (Bupivacaine 0.25% Pres-Free 30 Ml Vial) 0 ml IJ DIRECTED SHRUTHI Stop: 07/22/24 23:59 Bupivacaine HCl (Bupivacaine 0.5% Pres-Free 10 Ml Vial) 0 ml IJ DIRECTED SHRUTHI Stop: 07/22/24 23:59 Last Admin: 07/21/24 10:30 Dose: 1 ml Bupivacaine HCl (Bupivacaine 0.5% Pres-Free 30 Ml Vial) 0 ml IJ DIRECTED SHRUTHI Stop: 07/22/24 23:59 Dexamethasone Sodium Phosphate (Dexamethasone Sod. Phos./Pres-Free 10 Mg/Ml Vial) 0 mg IJ DIRECTED SHRUTHI Stop: 07/22/24 23:59 Last Admin: 07/21/24 10:30 Dose: 15 mg Dexamethasone Sodium Phosphate (Dexamethasone Sod. Phos./Pres-Free 10 Mg/Ml Vial) 0 mg IJ DIRECTED SHRUTHI Stop: 07/22/24 23:59 Diphenhydramine HCl (Diphenhydramine 25 Mg Cap) 25 mg PO DIRECTED SHRUTHI Stop: 07/22/24 23:59 Diphenhydramine HCl (Diphenhydramine 50 Mg/Ml Vial) 25 mg IVP DIRECTED SHRUTHI Stop: 07/22/24 23:59 Diphenhydramine HCl (Diphenhydramine 50 Mg/Ml Vial) 50 mg IVP DIRECTED SHRUTHI Stop: 07/22/24 23:59 Iohexol (Omnipaque 240 Mg/Ml 50 Ml Btl) 0 ml IJ DIRECTED SHRUTHI Stop: 07/22/24 23:59 Last Admin: 07/21/24 10:30 Dose: 2 ml Ketorolac Tromethamine (Ketorolac 30 Mg/Ml Vial) 30 mg IM Q6H PRN PRN Stop: 07/26/24 10:17 Last Admin: 07/21/24 10:40 Dose: 30 mg Ketorolac Tromethamine (Ketorolac 15 Mg/Ml Vial) 0 mg IJ DIRECTED SHRUTHI Stop: 07/22/24 23:59 Ketorolac Tromethamine (Ketorolac 30 Mg/Ml Vial) 0 mg IJ DIRECTED SHRUTHI Stop: 07/22/24 23:59 Lidocaine HCl (Lidocaine 1% Pres-Free 5 Ml Vial) 0 ml IJ DIRECTED SHRUTHI Stop: 07/22/24 23:59 Lidocaine HCl (Lidocaine 1% Pres-Free 30 Ml Vial) 0 ml IJ DIRECTED SHRUTHI Stop: 07/22/24 23:59 Lidocaine HCl (Lidocaine 2% Pres-Free 2 Ml Vial) 0 ml IJ DIRECTED SHRUTHI Stop: 07/22/24 23:59 Methylprednisolone Acetate (Methylprednisolone Acetate 80 Mg/Ml Vial) 0 mg IJ DIRECTED SHRUTHI Stop: 07/22/24 23:59 Methylprednisolone Acetate (Methylprednisolone Acetate 40 Mg/Ml Vial) 0 mg IJ DIRECTED SHRUTHI Stop: 07/22/24 23:59 Methylprednisolone Acetate (Methylprednisolone Acetate 80 Mg/Ml Vial) 0 mg IJ DIRECTED SHRUTHI Stop: 07/22/24 23:59 Methylprednisolone Acetate (Methylprednisolone Acetate 40 Mg/Ml Vial) 0 mg IJ DIRECTED SHRUTHI Stop: 07/22/24 23:59 Miscellaneous (Nerve Block Tray) 1 each MC DIRECTED SHRUTHI Stop: 07/22/24 23:59 Miscellaneous (Nerve Block Tray) 1 each MC DIRECTED SHRUTHI Stop: 07/22/24 23:59 Miscellaneous (Epidural Tray) 1 each MC DIRECTED SHRUTHI Stop: 07/22/24 23:59 Ondansetron HCl (Ondansetron 4 Mg/2 Ml Vial) 0 mg IJ DIRECTED SHRUTHI Stop: 07/22/24 23:59 Sodium Chloride (Normal Saline 20 Ml Vial) 10 ml IJ DIRECTED SHRUTHI Stop: 07/22/24 23:59 Sodium Chloride (Normal Saline Flush 10 Ml Syr) 0 ml IVP PRN PRN Stop: 07/22/24 23:59 Objective Exam Vitals and I&O: Vital Signs Pain Level 5 07/21/24 10:40 Ambulatory Orders ?Medication ?Instructions ?Recorded fexofenadine 180 mg tablet 180 mg PO DAILY 09/25/19 fluticasone propionate 50 See Rx Instructions intranasal 09/25/19 mcg/actuation nasal DAILY spray,suspension (Flonase Allergy Relief) diclofenac sodium 1 % topical gel 2 gm topical QID 09/30/19 (Voltaren) magnesium oxide 500 mg capsule 500 mg PO DAILY 09/30/19 red yeast rice 600 mg capsule 600 mg PO BID 12/08/20 lidocaine 5 % topical patch 1 patch topical DAILY PRN pain #30 08/27/23 ea estradiol 1 mg tablet 1 mg PO DAILY #90 tabs 10/05/23 progesterone micronized 100 mg 100 mg PO DAILY #90 caps 10/24/23 capsule (Prometrium) bupropion HCl 150 mg 24 hr tablet, 150 mg PO DAILY #90 tabs 10/25/23 extended release (Wellbutrin XL) celecoxib 200 mg capsule (Celebrex) 200 mg PO BID PRN pain #180 caps 12/24/23 zolpidem 12.5 mg tablet,extended 12.5 mg PO QHS PRN insomnia #90 02/12/24 release,multiphase (Ambien CR) tabs venlafaxine 150 mg 150 mg PO DAILY #90 caps 04/28/24 capsule,extended release 24 hr (Effexor XR) nlaqcowycv-qwfndtanxqqon-rkjvjlhl 2 cap PO Q4H PRN pain #30 caps 06/17/24 50 mg-300 mg-40 mg capsule pantoprazole 40 mg tablet,delayed 40 mg PO DAILY #90 tabs 06/17/24 release propranolol 40 mg tablet 20 mg (1/2 x 40 mg) PO BID #90 tabs 06/23/24 methocarbamol 750 mg tablet 750 mg PO TID PRN back pain #90 07/10/24 tabs tramadol 100 mg tablet 100 mg PO TID PRN pain #15 tabs 07/11/24 gabapentin 300 mg capsule 300 mg PO TID #270 caps 07/16/24
== END 2024-07-21 10:04 | disposition home or self-care (01) ==
LOC: PC 10:05
PROVIDERS: PCP Nurse Practitioner; Visit Provider Anesthesiology Pain Medicine
DX: M54.17 Radiculopathy, lumbosacral region (principal); M54.16 Radiculopathy, lumbar region
CPT/HCPCS: 00123; 64483; 72100; J0665; J1100; J1885; Q9967

== ENCOUNTER 2024-08-06 13:53 | Outpatient (CLI) | payer OTHER, SELFPAY ==
--- NOTE | 2024-08-06 16:24 | DI.RAD_ITS ---
Exam(s) XR LUMBAR SPINE COMPLETE EXAM: XR LUMBAR SPINE COMPLETE CLINICAL HISTORY: back pain, herniated lumbar disc m51.26,m54.9. TECHNIQUE: 2D digital imaging was performed. COMPARISON: CT CT LUMBAR SPINE RECONS from 07/08/2024 FINDINGS: Five views: Again noted is evidence of fusion surgery at L4-5 posterior fusion mike secured by bilateral intrapedi cular screws at these 2 levels and there is disc space divide ower at L4-5 again noted which appears in satisfactory position. Hardware appears satisfactory with no fractures of the hardware nor hardwa re migration. No loosening evident. There is stable mild grade 1 anterolisthesis L4 upon L5 again noted. There is mild disc space narrow ing at the L3-4 level which is 1 level above the fusion. Other disc spaces exhibit normal height. N o osseous lesions. No evidence of osteomyelitis. The sacroiliac joints appear unremarkable. There is mild scoliosis convex left. Sacroiliac joints appear unremarkable. IMPRESSION: Stable appearance. DATA REPOSITORY: RADIATION DOSE DELIVERED:
== END 2024-08-06 14:13 ==
LOC: DI 13:53
PROVIDERS: PCP Nurse Practitioner; Visit Provider Nurse Practitioner
DX: M51.26 Other intervertebral disc displacement, lumbar region
CPT/HCPCS: 72110

== ENCOUNTER 2024-09-12 01:44 | Outpatient (CLI) | payer OTHER, SELFPAY ==
[2024-09-12 07:39] LABS: Abs Immature Grans 0.01 10^3/uL (0.0-0.06); Absolute Basophil Count 0.04 10^3/uL (0.0-0.2); Absolute Eosinophil Count 0.13 10^3/uL (0.0-0.7); Absolute Lymphocyte Count 1.48 10^3/uL (1.2-3.4); Absolute Monocyte Count 0.38 10^3/uL (0.1-0.8); Absolute Neutrophil Count 1.91 10^3/uL (1.2-6.7); Eosinophils % 3.3 %; HCT 39.8 % (36.0-46.0); HGB 13.2 g/dL (11.2-15.7); Immature Grans % 0.3 %; Lymphocytes % 37.5 %; MCH 30.3 pg (27.0-33.0); MCHC 33.2 % (32.0-36.0); MCV 91 fL (80-95); MPV 10.1 fL (8.0-11.0); Monocytes % 9.6 %; Neutrophils % 48.3 %; Platelet Count 224 10^3/uL (130-400); RBC 4.36 10^6/uL (3.93-5.22); RDW 12.7 % (11.7-14.6); RDW-SD 42.5 fL; WBC 3.95 10^3/uL (4.4-10.8)
[2024-09-12 07:42] LABS: ESR 2 mm/hr (0-30)
[2024-09-12 08:05] LABS: C-Reactive Protein < 0.50 mg/dL (<or=0.5)
[2024-09-16 14:00] LABS: Apolipoprotein B, Serum 103 mg/dL (48-124); Beta VLDL Cholesterol Not Detected mg/dL (<15); Beta VLDL Triglycerides Not Detected mg/dL (<15); Cholesterol, Total, CDC 243 mg/dL; Chylomicron Cholesterol Not Detected; Chylomicron Triglycerides Not Detected; HDL Cholesterol, CDC 56 mg/dL (>=50); LDL Cholesterol 139 mg/dL; LDL Triglycerides 26 mg/dL (<=50); Lp(a) Cholesterol 19 mg/dL (<5); LpX Not detected; Triglycerides, CDC 137 mg/dL; VLDL Cholesterol 29 mg/dL (<30); VLDL Triglycerides 93 mg/dL (<120)
== END 2024-09-12 01:45 | disposition home or self-care (01) ==
LOC: LBO 01:44
PROVIDERS: Student in an Organized Health Care Education/Training Program; PCP Nurse Practitioner; Visit Provider Nurse Practitioner
DX: S46.011A Strain of muscle(s) and tendon(s) of the rotator cuff of right shoulder, initial encounter (principal); E78.5 Hyperlipidemia, unspecified
CPT/HCPCS: 36415; 80061; 85652; 82172; 82664; 85025; 86140

== ENCOUNTER 2024-10-29 08:54 | Outpatient (CLI) | payer OTHER, SELFPAY ==
--- NOTE | 2024-10-29 06:00 | DI.RAD_ITS ---
Exam(s) XR PAIN CLINIC LUMBAR SP 2V EXAM: XR PAIN CLINIC LUMBAR SP 2V CLINICAL HISTORY: DX: Lumbar Radiculopathy TECHNIQUE: 2D and realtime digital imaging was performed. CONTRAST MATERIAL: Refer to procedure report. COMPARISON: No exams were available for comparison FINDINGS: Fluoroscopy was provided for Dr. Lovelace during the performance of a foraminal epidural steroid inje ction. Please refer to the procedure report for complete details. Ka,r=6.3 mGy IMPRESSION: RADIATION DOSE DELIVERED: 0.0 0.0 0
--- NOTE | 2024-10-29 09:11 | PDOC.PAIN ---
Date of service: 10/29/24 Time of Service: 09:51 Pain Managment Procedure Note Procedure Note Procedure Note: Diagnostic Lumbar Facet Joint Injection ? Location: Lumbar Facet Joints ? Levels: Right L3-4, L5-S1 ? Pre-procedure Diagnosis: M47.817 Spondylosis without myelopathy or radiculopathy, lumbosacral region M47.816 Spondylosis without myelopathy or radiculopathy, lumbar region ? Post-procedure Diagnosis:? The same as above ? Sedation:? None ? Estimated blood loss:? less than 2 cc ? Surgeon: John Lovelace MD COMMENT: Pain .Decision was made to proceed with intra-articular facet injections for the possibility of not having to do medial branch blocks and radiofrequency ablation if patient get long lasting relief (> 3 months). The patient had disc herniation at L3-4 with right radicular pain that has essentially resolved after her last injection in July. Her pain now is mechanical in my opinion as she has bilateral Kemps maneuver bilaterally. The pain is above her incision on the right and below on the left so we will do 2 different levels right L3-4 and left L5-S1 ? Procedure Detail:? The procedure and potential risks were explained to the patient and informed written consent was obtained. The patient was escorted to the procedure room and placed in the prone position. Pillows were utilized for proper positioning and comfort.? Time out was performed in the procedure room with nursing staff confirming the patient's identity, procedure to be performed, allergies, and any blood thinning or anti-platelet medications.? Sterile technique was maintained throughout the procedure.? The patient's lumbosacral area was prepped with chlorhexidine and draped in a sterile fashion. Lidocaine 1% was used to anesthetize the skin. An oblique fluoroscopic view was obtained, with visualization of the facet joint.? A 22gauge, Quincke needle was gently advanced through the facet capsule.? Needle placement was confirmed with fluoroscopy in AP, oblique, and lateral views by injecting 0.25cc of contrast.? 20 mg of Depomedrol and 0.5ml of 0.5% bupivacaine was injected into the capsule at L3-4 Right . This was repeat at L5-S1 Left ? The patient tolerated the procedure well and was transported to recovery area for observation and discharge instructions. Permanent images saved and recorded. Plan:? Follow up prn COMMENT:Pain went from 7/10 to /. Pain? 60 % better. Will use this as both diagnostic and potentially therapeutic.? With short-term relief from the level that it was not long-lasting then we will proceed with for LMBB #2 and possible radiofrequency ablation. Could do opposite sides of above if patient feels symptoms but hopefully this will alleviate majority of her mechanical back pain and she will continue to do home exercises. She is relocating to the [place] and has a pain physician they are to follow-up with. Coding Conscious Sedation used for procedure: No CPT Codes: LMBB (includes Fluoro) Lumbar/Sacral, single lvl - 05120 ([id number] ~G) Left L5-S1 LMBB (includes Fluoro) Lumbar/Sacral, 2nd lvl - 98477 ([id number] ~G) RT - RIGHT SIDE Right L3-4 Additional Codes: Date of Service (17026) Date of service: 10/29/24
[2024-10-29 09:17] VITALS: BP 115/78; PULSE 75; RESP 18; TEMP 36.2; O2SAT 95
[2024-10-29 09:37] VITALS: PULSE 58; O2SAT 93
[2024-10-29 09:40] VITALS: PULSE 67; O2SAT 97
[2024-10-29] MEDS: Nerve Block Tray 1 EACH MC (09:51)
[2024-10-29] MEDS: methylPREDNISolone ACETATE 80 MG/ML VIAL IJ (09:51)
[2024-10-29] MEDS: Bupivacaine 0.5% Pres-Free 10 ML VIAL IJ (09:52)
[2024-10-29] MEDS: Omnipaque 240 MG/ML 50 ML BTL IJ (09:52)
== END 2024-10-29 08:55 | disposition home or self-care (01) ==
LOC: PC 08:54
PROVIDERS: PCP Nurse Practitioner; Visit Provider Anesthesiology Pain Medicine
DX: M47.817 Spondylosis without myelopathy or radiculopathy, lumbosacral region (principal); M47.816 Spondylosis without myelopathy or radiculopathy, lumbar region
CPT/HCPCS: 64493; 64494; 72100; J0665; J1010; Q9967

== ENCOUNTER 2024-11-18 01:21 | Outpatient (CLI) | payer OTHER, SELFPAY ==
--- NOTE | 2024-11-18 12:18 | DI.MAMMO_ITS ---
Exam(s) MAMMO SCREENING EXAM: MAMMO SCREENING CLINICAL HISTORY: screening,z12.39 TECHNIQUE: Bilateral full field digital CC and MLO mammographic images were obtained with 3D tomosyn thesis and utilizing computer aided detection (CAD). COMPARISON: Available for comparison. FINDINGS: Masses/Architectural Distortion: No masses or areas of suspicious architectural distortion are seen. Microcalcifications: No suspicious pleomorphic-type are seen. Skin Thickening/Nipple Retraction: None. IMPRESSION: 1. No significant interval change with no specific features of malignancy noted. 2. Unless there is more urgent need, screening mammography is recommended, as per [employer] guidelines. BI-RADS Category 1 - Negative Breast Density - Category B - Scattered areas of fibroglandular density Breast density category C or D implies that the patient has dense breast tissue. Dense breast tissue is very common and is not abnormal but dense breast tissue can make it harder to find cancer on a ma mmogram. Also, dense breast tissue may increase their breast cancer risk. This information about the result of the mammogram report was provided to the patient to raise their awareness. Use this report when you speak with the patient about their risks for breast cancer, which includes their family hist ory. At that time, you may recommend for more screening tests (Ultrasound or MRI) as they might be us eful based on their risk. A negative radiographic report should not delay biopsy if a dominant or clinically suspicious mass is present. Up to ten percent of cancers are not identified on mammography. A negative report may reinforce clinical impression. Adenosis and dense breasts may obscure an underlying neoplasm. False positive reports average 6 to 10%. Patient will receive a letter notifying them of these results.
== END 2024-11-18 01:41 ==
LOC: DI 01:21
PROVIDERS: PCP Nurse Practitioner; Visit Provider Nurse Practitioner
DX: Z12.31 Encounter for screening mammogram for malignant neoplasm of breast (principal); R92.323 Mammographic fibroglandular density, bilateral breasts
CPT/HCPCS: 77063; 77067

== ENCOUNTER 2024-11-20 01:28 | Outpatient (CLI) | payer OTHER, SELFPAY ==
--- NOTE | 2024-11-20 08:30 | DI.DEXA_ITS ---
Exam(s) XR DEXA BONE DENSITY W/WO IMMANUEL EXAM: XR DEXA BONE DENSITY W/WO IMMANUEL CLINICAL HISTORY: screen bone density Z78.0 ASYMPTOMATIC MENOPAUSAL STATE TECHNIQUE: COMPARISON: No exams were available for comparison FINDINGS: Lateral Spine Image: There is an L4-5 lumbar fusion. Left hip: Total T-Score: 0.0 Total Z-Score: 0.7 T- and Z-scores: Within normal limits. Left forearm: Total T-Score: 0.0 Total Z-Score: 0.9 T- and Z-scores: Within normal limits. IMPRESSION: No evidence of osteoporosis.
== END 2024-11-20 01:48 ==
PROVIDERS: PCP Nurse Practitioner; Visit Provider Nurse Practitioner
DX: Z78.0 Asymptomatic menopausal state (principal); Z13.820 Encounter for screening for osteoporosis
CPT/HCPCS: 77080